=== PATIENT | female | born 1995 | race African-American/Black ===

== ENCOUNTER 2016-06-16 15:42 | Inpatient (IN) | payer BC, MEDICAID ==
[~2016-06-16] VITALS: Ht 162.6 cm; Wt 89.2 kg
[~2016-06-16 15:42] MED LIST: /GLIM4TA PO; /ONDA4TA PO; ABIL10TA PO; DEXT5INJ2 IV; GABA300C2 PO; GLIM4TAB PO; GLUC1VL SC; GUAN1TA PO; HYDR-3363 PO; INSULANT SC; INTU2TAB PO; INTU3TAB PO; INTUNIV PO; METF-414 PO; METF-415 PO; METF1000 PO; ONDA4TAB2 PO; PROZ10CA7 PO; PROZ20CA11 PO; SEASTAB PO; TRAZ50TA2 PO; ULTR50TA PO; [UNRECOGNIZED DRUG - CODE] IV; [UNRECOGNIZED DRUG - CODE] PO
[2016-06-16] MEDS ORDERED: ZOCO40TA PO (15:59)
[2016-06-16] MEDS ORDERED: birth control PO (15:59)
[2016-06-16] MEDS ORDERED: FARX1TAB2 PO (15:59)
[2016-06-16] MEDS ORDERED: ABIL5TAB5 PO (15:59)
[2016-06-16] MEDS ORDERED: INSUH10VL SC (15:59)
[2016-06-16] MEDS ORDERED: ATIV1TAB7 PO (15:59)
[2016-06-16 19:59] LABS: MEAN CORPUSCULAR HEMOGLOBIN 28.5 pg (27.0-33.0); MEAN CORPUSCULAR HGB CONC 31.7 g/dl (32.0-36.5); MEAN CORPUSCULAR VOLUME 90.1 fl (80.0-96.0); RED CELL DISTRIBUTION WIDTH 13.6 % (11.5-14.5); WHITE BLOOD COUNT 7.2 K/mm3 (4.0-10.0)
[2016-06-16 20:03] LABS: CONTROL LINE HCG INT CTR LINE PRESENT
[2016-06-16 20:16] LABS: ALBUMIN 3.5 GM/DL (3.2-5.2); ALBUMIN/GLOBULIN RATIO 0.88 (1.00-1.93); ALKALINE PHOSPHATASE 90 U/L (45-117); ALT/SGPT 33 U/L (12-78); ANION GAP 10 MEQ/L (8-16); AST/SGOT 26 U/L (15-37); BILIRUBIN,DIRECT 0.1 MG/DL (0.0-0.2); BILIRUBIN,TOTAL 0.3 MG/DL (0.2-1.0); BLOOD UREA NITROGEN 10 MG/DL (7-18); CALCIUM LEVEL 9.1 MG/DL (8.5-10.1); CARBON DIOXIDE LEVEL 26 MEQ/L (21-32); CHLORIDE LEVEL 106 MEQ/L (98-107); CREATININE FOR GFR 0.75 MG/DL (0.55-1.02); GLOMERULAR FILTRATION RATE > 60.0 (>60); GLUCOSE, FASTING 151 MG/DL (70-105); POTASSIUM SERUM 3.9 MEQ/L (3.5-5.1); SODIUM LEVEL 142 MEQ/L (136-145); TOTAL PROTEIN 7.5 GM/DL (6.4-8.2)
[2016-06-16] MEDS ORDERED: FLUO10CA8 PO (21:38)
[2016-06-16] MEDS ORDERED: INTRTAB PO (21:41)
[2016-06-16] MEDS ORDERED: METF1000 PO (21:41)
[2016-06-16] MEDS ORDERED: INSULANT SC (21:41)
[2016-06-16] MEDS ORDERED: GUAN1TAB18 PO (21:43)
[2016-06-16] MEDS ORDERED: TRUL10IN SC (21:43)
[2016-06-16] MEDS ORDERED: MOM 30ML SUSPENSION UDC PO PRN (22:15)
[2016-06-16] MEDS ORDERED: GLUCAGON FOR INJ 1 MG VIAL (J1610) SC PRN (22:15)
[2016-06-16] MEDS ORDERED: MAALOX 30 ML SUSP *UDC PO PRN (22:15)
[2016-06-16] MEDS ORDERED: DEXTROSE 50% 50 ML SYRINGE IV PRN (22:15)
[2016-06-16] MEDS ORDERED: GLUCOSE 4 GM CHEW TABLET PO PRN (22:15)
[2016-06-16] MEDS ORDERED: ACETAMINOPHEN TAB 650MG DOSE (2X325MG) PO PRN (22:15)
[2016-06-16] MEDS ORDERED: LEVEMIR (INSULIN DETEMIR) 1 UNITS/0.01ML SC ONE (23:30)
[2016-06-17] MEDS: LORazepam 1 MG TAB PO PRN ×3 (01:41→22:28)
[2016-06-17] MEDS: HumaLOG INSULIN (NovoLOG) PER UNIT SC SCH ×4 (06:40→21:00)
[2016-06-17] MEDS: metFORMIN (GLUCOPHAGE) 1000 MG TABLET PO SCH ×2 (08:11→17:21)
[2016-06-17] MEDS ORDERED: COLA100C PO (09:17)
--- NOTE | 2016-06-17 11:31 | HPEPDOC ---
Medical History and Physical Date of Admission Jun 16, 2016 at 20:35 History and Physical PCP: Terence BETH ATTENDING: Dr. David Serna HPI: 20yoF admitted to [facility] for SI, being medically examined today. No acute medical complaints today. Denies any fevers, chills, weakness, fatigue, BRADLEY, CP, SOB, cough, palpitations, abdominal pain, N/V/D or changes in bowel or bladder habits. PMHx: Bipolar disorder Schizophrenia Depression ADHD Hyperlipidemia IDDM Vitamin D deficiency Developmental delay-resident of [facility] PSHX: Tonsillectomy/adenoidectomy Tympanostomy tubes [place] teeth extraction SOCHX: Resides in: [facility] residence. Marital Status: Single Kids: None Employment: Unemployed Tobacco use: Denies ETOH: Denies Illicit Drugs: Denies IV Drug Use: Denies Tattoos done unprofessionally: Denies FAMHX: Patient is adopted and is unaware of family history ROS: As noted in HPI, otherwise 11pt ROS of systems reviewed and remarkable only for LMP unknown. PE: GEN: 20yoF, appears stated age. Well-nourished, well developed. No acute distress. Alert and oriented x 3. Pleasant, interactive. HEENT: Normocephalic, atraumatic. Pupils are equal, round, and reactive to light. Extraocular movements are intact. No nystagmus appreciated. Sclera are nonicteric. Conjunctiva without injection. Nose midline. Nasal turbinates without bogginess. EACs both patent BL. TMs both visualized and madrigal with good cone of light, no bulging or erythema. No facial asymmetry. Moist mucous membranes. Dentition fair. Pharynx pink and moist, no cobblestoning. Neck supple , trachea midline. No lymphadenopathy or thyromegaly appreciated. CHEST: Regular rate and rhythm, +S1, +S2 LUNGS: Clear to auscultation bilaterally. No wheezes, rales, or rhonchi. Breathing appears symmetric and easy. Patient is speaking in full sentences. No accessory muscle use. ABD: Round, soft, non-tender, non-distended. +Bowel sounds throughout. No rebound or guarding. No costovertebral angle tenderness. EXT: Pulses 2+ bilaterally dorsalis pedis and radial. No lower extremity edema appreciated. SKIN: [place], dry, warm. Capillary refill <2sec. No rashes. NEURO: Alert and oriented x 3. Cranial nerves III-XII are intact. No focal deficits appreciated. EKG: pending. A&P: 20yoF admitted to [facility] for SI 1. Psych. Plan per Psychiatry.Obtain baseline EKG to assure the safety of psychiatric medications as they can prolong the QT interval. 2. IDDM. CC diet, SSI. Levemir 33 units daily at bedtime. Metformin 1000 mg by mouth twice a day. Patient follows as outpatient with [facility]. 3. Hyperlipidemia. Continue with Zocor 40 mg daily. 4. Follow up with PCP on discharge. 5. Patient remains on OCP. 6. Staff member present throughout exam, ALONDRA Peterson. Vital Signs Vital Signs Label Value Date Time Patient Temperature 97.4 degrees F 06/17/1634 Temperature Source Tympanic 06/17/1634 Pulse 103 06/17/1634 Respiratory Rate 16 bpm 06/17/1634 Blood Pressure Assessment 131/63 (85) 06/17/1634 Location Right Arm Source Automatic Cuff (NIBP) Position Supine Bedside Pulse Oximetry 97 % 06/17/1634 Item Value Date Time Oxygen Delivery Method Room Air 06/17/1634 Laboratory Data Labs 24H Laboratory Tests 2 06/16/16 16:53: Acetaminophen Level < 2.0L, Aspartate Amino Transf (AST/SGOT) 26, Alanine Aminotransferase (ALT/SGPT) 33, Alkaline Phosphatase 90, Total Bilirubin 0.3, Direct Bilirubin 0.1, Albumin 3.5, Albumin/Globulin Ratio 0.88L, Anion Gap 10, Calcium Level 9.1, Ethyl Alcohol Level 0.006, Glomerular Filtration Rate > 60.0 , Human Chorionic Gonadotropin, Qual NEGATIVE, Salicylates Level < 1.7L, Thyroid Stimulating Hormone (TSH) 0.710, Total Protein 7.5 06/17/16 06:39: Bedside Glucose (Misc Panel) 113H CBC/BMP Laboratory Tests 06/16/16 16:53 Red Blood Count 4.99, Mean Corpuscular Volume 90.1, Mean Corpuscular Hemoglobin 28.5, Mean Corpuscular Hemoglobin Concent 31.7 L, Red Cell Distribution Width 13.6 Home Medications Scheduled (Introvale 0.15-0.03 mg) 1 Tab Tab 1 TAB PO DAILY PATIENT STATES SHE IS ON [place] TABLETS RIGHT NOW (Guanfacine ER) 3 Mg Tab 3 MG PO QHS (Trulicity) 0.75 Mg/0.5 Ml Inj 0.75 MG SC 1XWK MONDAY Aripiprazole (Abilify) 5 Mg Tab 6 MG PO DAILY Docusate Sodium (Colace) 100 Mg Cap 100 MG PO BID CONSTIPATION Fluoxetine Hcl (Fluoxetine) 10 Mg Cap 30 MG PO QHS Insulin Aspart (Novolog) 100 U/Ml Inj 1 DOSE SC ACHS PER SLIDING SCALE Insulin Glargine (Lantus) 1 Units/0.01 Ml Susp 33 UNITS SC QHS Metformin Hydrochloride (Metformin HCl) 1,000 Mg Tab 1,000 MG PO BID Simvastatin - High Dose (Zocor) 40 Mg Tab 40 MG PO QHS Scheduled PRN Lorazepam (Ativan) 1 Mg Tab 1 MG PO Q6H PRN PRN AGITATION Allergies Coded Allergies: Topiramate (Verified Allergy, Severe, hallucinations, 06/16/16) Milk-related Compounds (Verified Allergy, Unknown, 07/16/12) Jessica Nash Jun 17, 2016 11:31
[2016-06-17 18:00] VITALS: BP 141/98
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
--- NOTE | 2016-06-17 20:34 | ECGEPIP ---
Stationary ECG Study [facility] Test Date: 2016-06-17 Pat Name: JAYME NÚÑEZ Department: Room: [place] [address] Gender: F Ribbon Winder: : 1995 Requested By: Jessica Nash Order Number: [id number] Reading MD: David Serna Measurements Intervals [place] Rate: 93 P: 43 PA: 149 QRS: 45 QRSD: 86 T: 32 QT: 358 QTc: 446 Interpretive Statements SINUS RHYTHM Nonspecific T wave abnormality No significant change when compared to prior tracing of 11-16-12 Electronically Signed On 06-17-2016 20:34:34 EST by David Serna
[2016-06-17] MEDS ORDERED: guanFACINE 1 MG TAB PO SCH (21:00)
[2016-06-17] MEDS ORDERED: ARIPiprazole 2 MG TAB PO SCH (21:00)
[2016-06-17] MEDS: FLUoxetine 10 MG CAP PO SCH (22:27)
[2016-06-17] MEDS: SIMVASTATIN 40 MG TAB PO SCH (22:28)
[2016-06-17] MEDS: guanFACINE 1 MG TAB PO SCH (22:29)
[2016-06-17] MEDS: LEVEMIR (INSULIN DETEMIR) 1 UNITS/0.01ML SC SCH (22:35)
[2016-06-18] MEDS: HumaLOG INSULIN (NovoLOG) PER UNIT SC SCH ×4 (06:41→21:00)
[2016-06-18 06:49] VITALS: BP 118/66
[2016-06-18] MEDS: metFORMIN (GLUCOPHAGE) 1000 MG TABLET PO SCH ×2 (08:00→17:26)
[2016-06-18] MEDS: guanFACINE 1 MG TAB PO SCH ×2 (09:12→20:41)
[2016-06-18] MEDS: INTROVALE PO SCH (17:26)
[2016-06-18 18:00] VITALS: BP 148/79
[2016-06-18] MEDS: SIMVASTATIN 40 MG TAB PO SCH (20:38)
[2016-06-18] MEDS: FLUoxetine 10 MG CAP PO SCH (20:39)
[2016-06-18] MEDS: LORazepam 1 MG TAB PO PRN (20:41)
[2016-06-18] MEDS: LEVEMIR (INSULIN DETEMIR) 1 UNITS/0.01ML SC SCH (21:32)
[2016-06-19 06:00] VITALS: BP 131/88
[2016-06-19] MEDS: HumaLOG INSULIN (NovoLOG) PER UNIT SC SCH ×4 (06:47→20:26)
[2016-06-19] MEDS ORDERED: ENTER DRUG NAME HERE (PATIENT'S OWN MED) PO SCH (09:00)
--- NOTE | 2016-06-19 09:23 | IPN ---
DATE: 06/18/2016 SUBJECTIVE: "When can I go home." OBJECTIVE: Patient is improving. Patient is interacting better with peers and staff. At times she displays attention seeking behavior. Denies side effects from medications. No evidence of auditory or visual hallucinations or delusions. MENTAL STATUS EXAMINATION: Patient is dressed in [facility]. Patient is cooperative during the exam. Speech is normal in rate, volume, articulation, is coherent and spontaneous. Mood is slightly depressed. Affect is congruent with mood. No evidence of delusions or hallucinations. Memory, attention and concentration is fair in the context of her developmental disability. The patient contracts for safety. Denies suicidal or homicidal ideation. Insight and judgment is limited. ASSESSMENT: 1. Developmental disability. 2. Suicidal ideation. PLAN: 1. Continue with Prozac 30 mg by mouth every morning. 2. Continue with Abilify 7.5 mg by mouth at bedtime. 3. Continue with Tenex 1.5 mg by mouth twice a day. 4. Continue close observation. 5. Continue medication management, individual and group therapy.
[2016-06-19] MEDS: INTROVALE PO SCH (09:26)
[2016-06-19] MEDS: guanFACINE 1 MG TAB PO SCH ×2 (09:26→20:26)
[2016-06-19] MEDS: metFORMIN (GLUCOPHAGE) 1000 MG TABLET PO SCH ×2 (09:27→17:05)
[2016-06-19 18:00] VITALS: BP 148/83
[2016-06-19] MEDS: SIMVASTATIN 40 MG TAB PO SCH (20:24)
[2016-06-19] MEDS: FLUoxetine 10 MG CAP PO SCH (20:24)
[2016-06-19] MEDS: traZODone 50 MG TAB PO PRN (20:27)
[2016-06-19] MEDS: LEVEMIR (INSULIN DETEMIR) 1 UNITS/0.01ML SC SCH (20:29)
[2016-06-20 06:27] VITALS: BP 120/61
[2016-06-20] MEDS: HumaLOG INSULIN (NovoLOG) PER UNIT SC SCH ×4 (07:13→20:15)
[2016-06-20] MEDS: metFORMIN (GLUCOPHAGE) 1000 MG TABLET PO SCH ×2 (07:13→17:01)
[2016-06-20] MEDS: guanFACINE 1 MG TAB PO SCH ×2 (08:13→20:13)
[2016-06-20] MEDS: INTROVALE PO SCH (08:14)
--- NOTE | 2016-06-20 11:20 | IPNPDOC ---
Subjective Date Seen The patient was seen on 06/20/16. Subjective Chief Complaint/HPI The patient is a 20-year-old female admitted with a reason for visit of Suicidal Ideation. Events since last encounter Requested to evaluate for left ear pain. Patient states pressure in the left ear. Patient states started 2 days ago. Denies any associated sore throat, fever, chills, rhinorrhea, cough, chest congestion. Has had some mild postnasal drip. Patient states history of allergic rhinitis. ENT: Reports: Ear Pain (left) Cardiovascular: Denies: Chest Pain, Lt Headedness, Orthopnea, Palpitations, Paroxysmal Noc. Dyspnea Gastrointestinal: Denies: Abdominal Pain, Constipation, Diarrhea, Nausea, Vomiting Genitourinary: Denies: Dysuria, Frequency, Incontinence, Retention Objective Physical Examination General Exam: Positive: Alert Eye Exam: Positive: PERRLA ENT Exam: Positive: Atraumatic, Ext Auditory Canal Nml, Mucous membr. moist/ pink, Nares Patent, Pharynx Normal, Pinna Normal, Tympanic Membranes Normal Neck Exam: Positive: Supple, Negative: JVD, thyromegaly Chest Exam: Positive: Clear to auscultation, Normal air movement Heart Exam: Positive: Normal S1, Normal S2, Rate Normal, Regular Rhythm, Negative: Murmurs, Rubs Abdomen Exam: Positive: Normal bowel sounds, Soft, Negative: Hepatospenomegaly, Tenderness Skin Exam: Positive: Nl turgor and temperature Neuro Exam: Positive: Normal Gait Assessment /Plan Problems (1) Allergic rhinitis Status: Chronic Problem Text: * Trial of Flonase 2 sprays each nostril daily. Plan/VTE VTE Prophylaxis Ordered?: No (ambulatory. ) [facility] Sign[facility]/I&O Vital Signs Date Time Temp Pulse Resp B/P Pulse Ox O2 Delivery O2 Flow Rate FiO2 06/20/16 08:13 135/85 06/20/16 06:27 96.2 86 18 06/17/16 00:35 97 Room Air Laboratory Data 24H LABS Laboratory Tests 2 06/19/16 12:04: Bedside Glucose (Misc Panel) 350H 06/19/16 20:25: Bedside Glucose (Misc Panel) 185H 06/20/16 07:11: Bedside Glucose (Misc Panel) 199H Jessica Nash Jun 20, 2016 11:19
[2016-06-20] MEDS: FLUTICASONE PROP 0.05% NASAL SPRAY 16 GM (FLONASE) SCH (12:18)
[2016-06-20] MEDS: hydrOXYzine 50 MG TAB PO PRN (17:24)
[2016-06-20 18:00] VITALS: BP 124/80
[2016-06-20] MEDS: FLUoxetine 10 MG CAP PO SCH (20:12)
[2016-06-20] MEDS: SIMVASTATIN 40 MG TAB PO SCH (20:13)
[2016-06-20] MEDS: LORazepam 1 MG TAB PO PRN (20:13)
[2016-06-20] MEDS: LEVEMIR (INSULIN DETEMIR) 1 UNITS/0.01ML SC SCH (20:16)
--- NOTE | 2016-06-20 23:51 | IPN ---
DATE: 06/19/2016 SUBJECTIVE: "I'm feeling much better." OBJECTIVE: The patient is significantly improved from admission. The patient is interacting very well with other patients and staff. No signs or symptoms of agitation or behavioral disturbance. Her mood is euthymic. The patient is able to joke with other patients and smiles appropriately. The patient denies any side effect from the medication and is sleeping well with help of the treatment. MENTAL STATUS EXAMINATION: The patient is dressed in casual clothes. The patient is calm and cooperative, has good eye contact. Speech is normal in rate, volume, articulation, is coherent and is spontaneous. Mood is euthymic. Affect is congruent with mood. No delusions or hallucinations. Memory is fair. The patient is fully oriented. The patient is denying suicidal or homicidal ideation. Insight and judgment is fair. ASSESSMENT: 1. Developmental disability. 2. Suicidal ideation. PLAN: 1. Continue Prozac 30 mg by mouth every morning. 2. Continue Abilify 7.5 mg by mouth nightly. 3. Continue Tenex 1.5 mg by mouth twice a day. 4. Continue medication management, individual and group therapy.
[2016-06-21] MEDS: HumaLOG INSULIN (NovoLOG) PER UNIT SC SCH ×5 (06:30→20:36)
[2016-06-21 06:32] VITALS: BP 133/85
[2016-06-21] MEDS: FLUTICASONE PROP 0.05% NASAL SPRAY 16 GM (FLONASE) SCH (08:01)
[2016-06-21] MEDS: metFORMIN (GLUCOPHAGE) 1000 MG TABLET PO SCH ×2 (08:01→18:03)
[2016-06-21] MEDS: INTROVALE PO SCH (08:01)
[2016-06-21] MEDS: guanFACINE 1 MG TAB PO SCH ×2 (08:01→20:34)
[2016-06-21] MEDS ORDERED: FLUTISP (08:29)
--- NOTE | 2016-06-21 12:07 | DS.PDOC ---
[facility] Discharge Summary Discharge Summary Entry made in error Vital Signs Vital Sign - Last 24 Hours 06/20/16 06/20/16 06/21/16 06/21/16 18:00 20:13 06:32 08:01 Temp 96.7 96.0 Pulse 86 103 Resp 16 16 B/P 124/80 138/86 133/85 133/85 Laboratory Data Labs 24H Laboratory Tests 2 06/20/16 16:50: Bedside Glucose (Misc Panel) 278H 06/20/16 20:07: Bedside Glucose (Misc Panel) 159H 06/21/16 06:24: Bedside Glucose (Misc Panel) 182H FSBS Laboratory Tests Test 06/20/16 16:50 06/20/16 20:07 06/21/16 06:24 Range/Units Bedside Glucose (Misc Panel) 278 159 182 70-105 MG/DL Medications Scheduled (Introvale 0.15-0.03 mg) 1 Tab Tab 1 TAB PO DAILY (Reported) PATIENT STATES SHE IS ON [place] TABLETS RIGHT NOW (Guanfacine ER) 3 Mg Tab 3 MG PO QHS (Reported) (Trulicity) 0.75 Mg/0.5 Ml Inj 0.75 MG SC 1XWK (Reported) MONDAY Aripiprazole (Abilify) 5 Mg Tab 6 MG PO DAILY (Reported) Docusate Sodium (Colace) 100 Mg Cap 100 MG PO BID CONSTIPATION (Reported) Fluoxetine Hcl (Fluoxetine) 10 Mg Cap 30 MG PO QHS (Reported) Fluticasone Propionate (Fluticasone Propionate) 50 Mcg/Act Spr #1 2 SPRAY NA DAILY allergy Insulin Aspart (Novolog) 100 U/Ml Inj 1 DOSE SC ACHS (Reported) PER SLIDING SCALE Insulin Glargine (Lantus) 1 Units/0.01 Ml Susp 33 UNITS SC QHS (Reported) Metformin Hydrochloride (Metformin HCl) 1,000 Mg Tab 1,000 MG PO BID (Reported ) Simvastatin - High Dose (Zocor) 40 Mg Tab 40 MG PO QHS (Reported) Scheduled PRN Lorazepam (Ativan) 1 Mg Tab 1 MG PO Q6H PRN PRN AGITATION (Reported) Allergies Coded Allergies: Topiramate (Verified Allergy, Severe, hallucinations, 06/16/16) Milk-related Compounds (Verified Allergy, Unknown, 07/16/12) Jyoti Park Jun 21, 2016 12:06 Laboratory Data Labs 24H Laboratory Tests 2 06/20/16 16:50: Bedside Glucose (Misc Panel) 278H 06/20/16 20:07: Bedside Glucose (Misc Panel) 159H 06/21/16 06:24: Bedside Glucose (Misc Panel) 182H FSBS Laboratory Tests Test 06/20/16 16:50 06/20/16 20:07 06/21/16 06:24 Range/Units Bedside Glucose (Misc Panel) 278 159 182 70-105 MG/DL Medications Scheduled (Introvale 0.15-0.03 mg) 1 Tab Tab 1 TAB PO DAILY (Reported) PATIENT STATES SHE IS ON [place] TABLETS RIGHT NOW (Guanfacine ER) 3 Mg Tab 3 MG PO QHS (Reported) (Trulicity) 0.75 Mg/0.5 Ml Inj 0.75 MG SC 1XWK (Reported) MONDAY Aripiprazole (Abilify) 5 Mg Tab 6 MG PO DAILY (Reported) Docusate Sodium (Colace) 100 Mg Cap 100 MG PO BID CONSTIPATION (Reported) Fluoxetine Hcl (Fluoxetine) 10 Mg Cap 30 MG PO QHS (Reported) Fluticasone Propionate (Fluticasone Propionate) 50 Mcg/Act Spr #1 2 SPRAY NA DAILY allergy Insulin Aspart (Novolog) 100 U/Ml Inj 1 DOSE SC ACHS (Reported) PER SLIDING SCALE Insulin Glargine (Lantus) 1 Units/0.01 Ml Susp 33 UNITS SC QHS (Reported) Metformin Hydrochloride (Metformin HCl) 1,000 Mg Tab 1,000 MG PO BID (Reported ) Simvastatin - High Dose (Zocor) 40 Mg Tab 40 MG PO QHS (Reported) Scheduled PRN Lorazepam (Ativan) 1 Mg Tab 1 MG PO Q6H PRN PRN AGITATION (Reported) Allergies Coded Allergies: Topiramate (Verified Allergy, Severe, hallucinations, 06/16/16) Milk-related Compounds (Verified Allergy, Unknown, 07/16/12) Jyoti Park Jun 21, 2016 12:06
[2016-06-21] MEDS: LORazepam 1 MG TAB PO PRN (12:50)
--- NOTE | 2016-06-21 17:23 | IPNPDOC ---
[facility] Progress Note Progress Note DATE OF SERVICE: 06/21/16 HISTORY: Aircraft Engine Assembler met with patient today to assess treatment progress on the inpatient unit. Patient continues to improve from admission and has been visible on unit and attending groups. The patient is well with other patients and staff, no indication of agitation or loss of behavioral control over the weekend. Patient denies challenges with energy level, sleep or appetite, indicates medication regimen is working well to control symptoms of anxiety, depression, agitation, and concentration and focus challenges. Patient informs mortgage or loan underwriter today that she is planning to discharge back to residential facility, mortgage or loan underwriter informs patient that her discharge is not scheduled for today but that meeting with [facility] is to take place this morning to begin making plans for patient to return to facility. Patient verbalizes understanding but continues to push for discharge today. VITALS: See below CURRENT MEDICATIONS: See below MENTAL STATUS EXAMINATION: The patient is dressed in casual clothes. The patient is calm and cooperative at time of assessment, has fair eye contact. Speech is normal in rate, volume, articulation, is coherent and is spontaneous. Mood is anxious. Affect is congruent with mood. No delusions or hallucinations. Memory is fair. The patient is fully oriented. The patient is denying suicidal or homicidal ideation. Insight and judgment are limited. DIAGNOSES: Impulse control disorder, rule out bipolar disorder, rule out MDD, developmentally disabled, ADHD ASSESSMENT: Patient has been visible on unit and attending groups. Patient is superficially compliant, denies all symptoms today, indicates she feels prepared for discharge back to [facility] and is aware he has meeting with [facility] this morning. Patient indicates recent dosing adjustment to Abilify is helpful, states current medication regimen is working well and denies medication side effects. Patient is minimizing symptoms, informs mortgage or loan underwriter that she has no anxiety or depression though continues to make telephone calls multiple times per day to request to speak with the boiler house mechanic, becomes demanding during meeting with this mortgage or loan underwriter, insisting that she be discharged back to her residential facility today. Aircraft Engine Assembler will continue to monitor patient's response to medications, monitor for medication side effects, evaluate resolution of suicidal and homicidal ideation, and discharge readiness. Addendum: Patient became agitated after meeting with [facility] wherein behavioral expectations were outlined to patient. Patient demanding to be discharged today , eventually able to calm down and regain composure, required medication with when necessary anxiolytic. [facility] indicated they do not feel patient is ready for return to residential facility. Aircraft Engine Assembler again met with patient and patient is agreeable to dosing adjustment to Abilify in effort to further reduce symptoms of agitation, low frustration tolerance, anxiety. Will reevaluate discharge in 2 -3 days, patient is in agreement with new projected discharge timeframe, is also in agreement that she will place no more than one telephone call in the morning and 1 telephone call in the evening to staff at her residential facility. MANAGEMENT PLAN: Increase Abilify to 10 mg po q hs, continue Prozac 30 mg po q am, and Tenex 1.5 mg po BID Maintain safety precautions Patient to attend groups and participate in unit programming to develop coping strategies Engage patient in discharge planning process and arrange follow-up meeting with [facility] later in week to reevaluate discharge planning discharge planning when appropriate Patient to follow up with PCM upon discharge TIME SPENT: 35 minutes Vital Signs Vital Signs Date Time Temp Pulse Resp B/P Pulse Ox O2 Delivery O2 Flow Rate FiO2 06/21/16 08:01 133/85 06/21/16 06:32 96.0 103 16 06/17/16 00:35 97 Room Air Laboratory Data 24H Labs Laboratory Tests 2 06/20/16 20:07: Bedside Glucose (Misc Panel) 159H 06/21/16 06:24: Bedside Glucose (Misc Panel) 182H 06/21/16 12:03: Bedside Glucose (Misc Panel) 326H Current Medications Current Medications Acetaminophen (Tylenol Tab) 650 mg Q6HP PRN PO HEADACHE or DISCOMFORT; Start at 22:15; Stop 07/16/16 at 22:14 Al Hydrox/Mg Hydrox/Simethicone (Mylanta) 30 ml Q4HP PRN PO HEARTBURN/ INDIGESTION; Start 06/16/16 at 22:15; Stop 07/16/16 at 22:14 Aripiprazole (AbiLIFY) 1 mg QHS PO ; Start 06/17/16 at 21:00; Stop 06/17/16 at 21: 00; Status DC Aripiprazole (AbiLIFY) 5 mg QHS PO ; Start 06/17/16 at 21:00; Stop 06/17/16 at 21: 00; Status DC Aripiprazole (AbiLIFY) 7.5 mg QHS PO Last administered on 06/20/16 20:13; Start 06/17/16 at 21:00; Stop 07/17/16 at 20:59 Dextrose (Dextrose 50%) 25 ml ASDIRECTED PRN IV SEE LABEL COMMENTS; Start at 22:15; Stop 07/16/16 at 22:14 Fluoxetine HCl (PROzac) 30 mg QHS PO Last administered on 06/20/16 20:12; Start 06/17/16 at 21:00; Stop 07/17/16 at 20:59 Fluticasone Propionate (Flonase 0.05% Nasal [place]) 2 spray DAILY NA Last administered on 06/21/16 08:01; Start 06/20/16 at 09:00; Stop 07/20/16 at 08:59 Glucagon (Glucagon) 1 mg ASDIRECTED PRN SC SEE LABEL COMMENTS; Start 06/16/16 at 22:15; Stop 07/16/16 at 22:14 Glucose (Glucose) 16 GM ASDIRECTED PRN PO SEE LABEL COMMENTS; Start 06/16/16 at 22:15; Stop 07/16/16 at 22:14 Guanfacine HCl (Tenex) 1.5 mg BID PO Last administered on 06/21/16 08:01; Start 06/17/16 at 21:00; Stop 07/17/16 at 20:59 Guanfacine HCl (Tenex) 3 mg QHS PO ; Start 06/17/16 at 21:00; Stop 06/17/16 at 21: 00; Status DC Home Med (Med Rec Complete!) ASDIRECTED XX ; Start 06/16/16 at 21:45; Stop at 21:50; Status DC Hydroxyzine HCl (Atarax) 50 mg Q6HP PRN PO ANXIETY Last administered on 17:24; Start 06/17/16 at 18:00; Stop 07/17/16 at 17:59 Insulin Detemir (Levemir Insulin) 33 units QHS SC Last administered on 20:16; Start 06/17/16 at 21:00; Stop 07/17/16 at 20:59 Insulin Human Lispro (HumaLOG INSULIN) See Protocol Table AC SC Last administered on 06/21/16 14:07; Start 06/17/16 at 07:30; Stop 07/17/16 at 07:29 Insulin Human Lispro (HumaLOG INSULIN) See Protocol Table QHS SC ; Start at 21:00; Stop 07/17/16 at 20:59 Lorazepam (Ativan) 1 mg Q6HP PRN PO AGITATION Last administered on 06/21/16 12: 50; Start 06/16/16 at 22:15; Stop 06/23/16 at 22:14 Magnesium Hydroxide (Milk Of Magnesia) 30 ml DAILYPRN PRN PO CONSTIPATION; Start 06/16/16 at 22:15; Stop 07/16/16 at 22:14 Metformin HCl (Glucophage) 1,000 mg BID@ PO Last administered on 06/21/16 08:01; Start 06/17/16 at 08:00; Stop 07/17/16 at 07:59 Miscellaneous (Unresolved Patient Own Med Order) SEE LABEL COMMENTS UNRESOLVED XX ; Start 06/17/16 at 00:01; Stop 06/18/16 at 16:27; Status DC Patient Own Medication (Patient'S Own Med) 1 ea DAILY PO Last administered on 08:01; Start 06/18/16 at 09:00; Stop 07/18/16 at 08:59 Patient Own Medication (Patient'S Own Med) 1 ea DAILY PO ; Start 06/19/16 at 09: 00; Stop 06/19/16 at 09:00; Status DC Simvastatin (Zocor) 40 mg QHS PO Last administered on 06/20/16 20:13; Start 06/17/16 at 21:00; Stop 07/17/16 at 20:59 Trazodone HCl (Desyrel) 50 mg QHSP PRN PO INSOMNIA Last administered on 20:27; Start 06/16/16 at 22:15; Stop 07/16/16 at 22:14 Allergies Coded Allergies: Topiramate (Verified Allergy, Severe, hallucinations, 06/16/16) Milk-related Compounds (Verified Allergy, Unknown, 07/16/12) Jyoti Park Jun 21, 2016 17:23 Glucagon (Glucagon) 1 mg ASDIRECTED PRN SC SEE LABEL COMMENTS; Start 06/16/16 at 22:15; Stop 07/16/16 at 22:14 Glucose (Glucose) 16 GM ASDIRECTED PRN PO SEE LABEL COMMENTS; Start 06/16/16 at 22:15; Stop 07/16/16 at 22:14 Guanfacine HCl (Tenex) 1.5 mg BID PO Last administered on 06/21/16 08:01; Start 06/17/16 at 21:00; Stop 07/17/16 at 20:59 Guanfacine HCl (Tenex) 3 mg QHS PO ; Start 06/17/16 at 21:00; Stop 06/17/16 at 21: 00; Status DC Home Med (Med Rec Complete!) ASDIRECTED XX ; Start 06/16/16 at 21:45; Stop at 21:50; Status DC Hydroxyzine HCl (Atarax) 50 mg Q6HP PRN PO ANXIETY Last administered on 17:24; Start 06/17/16 at 18:00; Stop 07/17/16 at 17:59 Insulin Detemir (Levemir Insulin) 33 units QHS SC Last administered on 20:16; Start 06/17/16 at 21:00; Stop 07/17/16 at 20:59 Insulin Human Lispro (HumaLOG INSULIN) See Protocol Table AC SC Last administered on 06/21/16 14:07; Start 06/17/16 at 07:30; Stop 07/17/16 at 07:29 Insulin Human Lispro (HumaLOG INSULIN) See Protocol Table QHS SC ; Start at 21:00; Stop 07/17/16 at 20:59 Lorazepam (Ativan) 1 mg Q6HP PRN PO AGITATION Last administered on 06/21/16 12: 50; Start 06/16/16 at 22:15; Stop 06/23/16 at 22:14 Magnesium Hydroxide (Milk Of Magnesia) 30 ml DAILYPRN PRN PO CONSTIPATION; Start 06/16/16 at 22:15; Stop 07/16/16 at 22:14 Metformin HCl (Glucophage) 1,000 mg BID@ PO Last administered on 06/21/16 08:01; Start 06/17/16 at 08:00; Stop 07/17/16 at 07:59 Miscellaneous (Unresolved Patient Own Med Order) SEE LABEL COMMENTS UNRESOLVED XX ; Start 06/17/16 at 00:01; Stop 06/18/16 at 16:27; Status DC Patient Own Medication (Patient'S Own Med) 1 ea DAILY PO Last administered on 08:01; Start 06/18/16 at 09:00; Stop 07/18/16 at 08:59 Patient Own Medication (Patient'S Own Med) 1 ea DAILY PO ; Start 06/19/16 at 09: 00; Stop 06/19/16 at 09:00; Status DC Simvastatin (Zocor) 40 mg QHS PO Last administered on 06/20/16 20:13; Start 06/17/16 at 21:00; Stop 07/17/16 at 20:59 Trazodone HCl (Desyrel) 50 mg QHSP PRN PO INSOMNIA Last administered on 20:27; Start 06/16/16 at 22:15; Stop 07/16/16 at 22:14 Allergies Coded Allergies: Topiramate (Verified Allergy, Severe, hallucinations, 06/16/16) Milk-related Compounds (Verified Allergy, Unknown, 07/16/12) Jyoti Park Jun 21, 2016 17:23
[2016-06-21] MEDS: FLUoxetine 10 MG CAP PO SCH (20:33)
[2016-06-21] MEDS: traZODone 50 MG TAB PO PRN (20:34)
[2016-06-21] MEDS: SIMVASTATIN 40 MG TAB PO SCH (20:34)
[2016-06-21] MEDS: LEVEMIR (INSULIN DETEMIR) 1 UNITS/0.01ML SC SCH (20:37)
[2016-06-21 22:25] VITALS: BP 117/72
[2016-06-22 06:16] VITALS: BP 136/92
[2016-06-22] MEDS: HumaLOG INSULIN (NovoLOG) PER UNIT SC SCH ×4 (06:54→21:00)
[2016-06-22] MEDS: metFORMIN (GLUCOPHAGE) 1000 MG TABLET PO SCH ×2 (09:13→17:06)
[2016-06-22] MEDS: INTROVALE PO SCH (09:14)
[2016-06-22] MEDS: guanFACINE 1 MG TAB PO SCH ×2 (09:14→22:49)
[2016-06-22] MEDS: FLUTICASONE PROP 0.05% NASAL SPRAY 16 GM (FLONASE) SCH (09:17)
[2016-06-22] MEDS: LORazepam 1 MG TAB PO PRN ×2 (11:19→22:51)
--- NOTE | 2016-06-22 12:10 | IPNPDOC ---
[facility] Progress Note Progress Note DATE OF SERVICE: 06/22/16 HISTORY: Software Engineer Developer met with patient today to assess treatment progress on the inpatient unit. Patient continues to improve from admission and has been visible on unit and attending groups. The patient is engaging well with other patients and staff, no indication of agitation or loss of behavioral control, indicates she is adhering to the 2 telephone call role to her residential treatment facility. Patient denies challenges with energy level, sleep or appetite, indicates medication regimen is working well to control symptoms of anxiety, depression, agitation, and concentration and focus challenges. Patient denies symptoms of depression, reports 2/10 anxiety related to her desire to discharge, denies suicidal and homicidal ideation, denies audiovisual hallucinations, and denies urge to engage in self-injurious behavior. Patient is aware her discharge status is currently undetermined, she is undergoing ongoing evaluation to determine her safety and readiness to return to her [facility], discharge will be reevaluated on Monday. VITALS: See below NEW TEST RESULTS: No new results. Labs on admission indicate low MCHC, AGR and elevated glucose UDS negative on admission HCG negative on admission, patient is currently taking oral control 06/17/16 EKG SINUS RHYTHM Nonspecific T wave abnormality. No significant change when compared to prior tracing of 11-16-12 CURRENT MEDICATIONS: See below MENTAL STATUS EXAMINATION: Patient is a 20-year-old female who is pleasant, less superficially cooperative today, adequately kempt, obese, and relates with steady gait, appears stated age. Speech: Is of normal rate, rhythm, volume, coherent, somewhat spontaneous Language skills are intact but limited. Thought processes including: Clear, goal-directed. Thought content: Rational, logical, fixated on discharge Abstract reasoning: Appears limited Description of associations: Intact. Description of abnormal or psychotic thoughts: denies hallucinations, delusions , preoccupation with violence, homicidal or suicidal ideation, and obsessions, states she is adhering to the 2 telephone call. Judgment: Poor, but shows signs of improvement. Insight: Limited. Orientation to time, place and person. Recent and remote memory: Immediate, short-term and long-term memory is intact. Attention span and concentration: Limited. Language: Normal. Fund of knowledge: Intact but limited. Mood: "I feel good, I feel ready for discharge." Patient denies anxiety and depression, no mood lability noted at time of interaction Affect: Mild constriction, brightens appropriately, congruent with mood. DIAGNOSES: Impulse control disorder, rule out bipolar disorder, rule out MDD, developmentally disabled, ADHD ASSESSMENT: Patient has been visible on unit and attending groups. Patient is less superficially compliant, appears more genuine in her interactions today, indicates she feels prepared for discharge back to [facility] and is wanting to know if she will be discharged Monday. Patient is receptive to being told that her discharge date is currently undetermined, appears to be experiencing an increase in ability to tolerate frustration. Patient also indicates she is finding unit programming helpful in the development of new coping mechanisms. Patient indicates recent dosing adjustment to Abilify is helpful, states current medication regimen is working well and denies medication side effects. Patient states she is also adhering to the 2 telephone call role to her residential facility, is able to verbalize difficulty with this but states she is invested in following the rules and returning to her residential treatment facility. Patient exhibits no agitation or demanding behavior today. Will continue to monitor patient's response to medications, medication side effects, and will evaluate resolution of suicidal and homicidal ideation, and discharge readiness. Patient is aware discharge plan is to return to [facility] residential treatment facility and continuation of outpatient behavioral health services with previous provider. MANAGEMENT PLAN: Continue Abilify 10 mg po q hs, continue Prozac 30 mg po q am, and Tenex 1.5 mg po BID Maintain safety precautions Patient to attend groups and participate in unit programming to develop coping strategies Engage patient in discharge planning process and arrange follow-up meeting with [facility] later in week to reevaluate discharge planning discharge planning when appropriate Patient to follow up with PCM upon discharge TIME SPENT: 35 minutes Vital Signs Vital Signs Date Time Temp Pulse Resp B/P Pulse Ox O2 Delivery O2 Flow Rate FiO2 06/22/16 09:14 136/88 06/22/16 06:16 96.3 77 18 06/17/16 00:35 97 Room Air Laboratory Data 24H Labs Laboratory Tests 2 06/21/16 17:06: Bedside Glucose (Misc Panel) 277H 06/21/16 20:29: Bedside Glucose (Misc Panel) 207H 06/22/16 06:52: Bedside Glucose (Misc Panel) 201H 06/22/16 11:21: Bedside Glucose (Misc Panel) 340H Current Medications Current Medications Acetaminophen (Tylenol Tab) 650 mg Q6HP PRN PO HEADACHE or DISCOMFORT; Start at 22:15; Stop 07/16/16 at 22:14 Al Hydrox/Mg Hydrox/Simethicone (Mylanta) 30 ml Q4HP PRN PO HEARTBURN/ INDIGESTION; Start 06/16/16 at 22:15; Stop 07/16/16 at 22:14 Aripiprazole (AbiLIFY) 1 mg QHS PO ; Start 06/17/16 at 21:00; Stop 06/17/16 at 21: 00; Status DC Aripiprazole (AbiLIFY) 5 mg QHS PO ; Start 06/17/16 at 21:00; Stop 06/17/16 at 21: 00; Status DC Aripiprazole (AbiLIFY) 7.5 mg QHS PO Last administered on 06/20/16 20:13; Start 06/17/16 at 21:00; Stop 06/21/16 at 17:34; Status DC Aripiprazole (AbiLIFY) 10 mg QHS PO Last administered on 06/21/16 20:34; Start 06/21/16 at 21:00; Stop 07/21/16 at 20:59 Dextrose (Dextrose 50%) 25 ml ASDIRECTED PRN IV SEE LABEL COMMENTS; Start at 22:15; Stop 07/16/16 at 22:14 Fluoxetine HCl (PROzac) 30 mg QHS PO Last administered on 06/21/16 20:33; Start 06/17/16 at 21:00; Stop 07/17/16 at 20:59 Fluticasone Propionate (Flonase 0.05% Nasal [place]) 2 spray DAILY NA Last administered on 06/22/16 09:17; Start 06/20/16 at 09:00; Stop 07/20/16 at 08:59 Glucagon (Glucagon) 1 mg ASDIRECTED PRN SC SEE LABEL COMMENTS; Start 06/16/16 at 22:15; Stop 07/16/16 at 22:14 Glucose (Glucose) 16 GM ASDIRECTED PRN PO SEE LABEL COMMENTS; Start 06/16/16 at 22:15; Stop 07/16/16 at 22:14 Guanfacine HCl (Tenex) 1.5 mg BID PO Last administered on 06/22/16 09:14; Start 06/17/16 at 21:00; Stop 07/17/16 at 20:59 Guanfacine HCl (Tenex) 3 mg QHS PO ; Start 06/17/16 at 21:00; Stop 06/17/16 at 21: 00; Status DC Home Med (Med Rec Complete!) ASDIRECTED XX ; Start 06/16/16 at 21:45; Stop at 21:50; Status DC Hydroxyzine HCl (Atarax) 50 mg Q6HP PRN PO ANXIETY Last administered on 17:24; Start 06/17/16 at 18:00; Stop 07/17/16 at 17:59 Insulin Detemir (Levemir Insulin) 33 units QHS SC Last administered on 20:37; Start 06/17/16 at 21:00; Stop 07/17/16 at 20:59 Insulin Human Lispro (HumaLOG INSULIN) See Protocol Table AC SC Last administered on 06/22/16 11:24; Start 06/17/16 at 07:30; Stop 07/17/16 at 07:29 Insulin Human Lispro (HumaLOG INSULIN) See Protocol Table QHS SC ; Start at 21:00; Stop 07/17/16 at 20:59 Lorazepam (Ativan) 1 mg Q6HP PRN PO AGITATION Last administered on 06/22/16 11: 19; Start 06/16/16 at 22:15; Stop 06/29/16 at 22:14 Magnesium Hydroxide (Milk Of Magnesia) 30 ml DAILYPRN PRN PO CONSTIPATION; Start 06/16/16 at 22:15; Stop 07/16/16 at 22:14 Metformin HCl (Glucophage) 1,000 mg BID@18 PO Last administered on 06/22/16 09:13; Start 06/17/16 at 08:00; Stop 07/17/16 at 07:59 Miscellaneous (Unresolved Patient Own Med Order) SEE LABEL COMMENTS UNRESOLVED XX ; Start 06/17/16 at 00:01; Stop 06/18/16 at 16:27; Status DC Patient Own Medication (Patient'S Own Med) 1 ea DAILY PO Last administered on 09:14; Start 06/18/16 at 09:00; Stop 07/18/16 at 08:59 Patient Own Medication (Patient'S Own Med) 1 ea DAILY PO ; Start 06/19/16 at 09: 00; Stop 06/19/16 at 09:00; Status DC Simvastatin (Zocor) 40 mg QHS PO Last administered on 06/21/16 20:34; Start 06/17/16 at 21:00; Stop 07/17/16 at 20:59 Trazodone HCl (Desyrel) 50 mg QHSP PRN PO INSOMNIA Last administered on 20:34; Start 06/16/16 at 22:15; Stop 07/16/16 at 22:14 Allergies Coded Allergies: Topiramate (Verified Allergy, Severe, hallucinations, 06/16/16) Milk-related Compounds (Verified Allergy, Unknown, 07/16/12) Jyoti Park Jun 22, 2016 12:10
[2016-06-22 18:00] VITALS: BP 138/80
[2016-06-22] MEDS: FLUoxetine 10 MG CAP PO SCH (22:47)
[2016-06-22] MEDS: SIMVASTATIN 40 MG TAB PO SCH (22:48)
[2016-06-22] MEDS: hydrOXYzine 50 MG TAB PO PRN (22:51)
[2016-06-22] MEDS: LEVEMIR (INSULIN DETEMIR) 1 UNITS/0.01ML SC SCH (22:57)
[2016-06-23 06:36] VITALS: BP 145/95
[2016-06-23] MEDS: HumaLOG INSULIN (NovoLOG) PER UNIT SC SCH ×4 (06:40→20:11)
[2016-06-23] MEDS: INTROVALE PO SCH (08:50)
[2016-06-23] MEDS: metFORMIN (GLUCOPHAGE) 1000 MG TABLET PO SCH ×2 (08:50→18:10)
[2016-06-23] MEDS: FLUTICASONE PROP 0.05% NASAL SPRAY 16 GM (FLONASE) SCH (08:51)
[2016-06-23] MEDS: guanFACINE 1 MG TAB PO SCH ×2 (08:51→20:09)
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
[2016-06-23 18:00] VITALS: BP 107/57
[2016-06-23] MEDS: SIMVASTATIN 40 MG TAB PO SCH (20:06)
[2016-06-23] MEDS: FLUoxetine 10 MG CAP PO SCH (20:08)
[2016-06-23] MEDS: LEVEMIR (INSULIN DETEMIR) 1 UNITS/0.01ML SC SCH (20:12)
[2016-06-23] MEDS: traZODone 50 MG TAB PO PRN (20:14)
[2016-06-24] MEDS: metFORMIN (GLUCOPHAGE) 1000 MG TABLET PO SCH (06:45)
[2016-06-24 06:48] VITALS: BP 131/78
[2016-06-24] MEDS: HumaLOG INSULIN (NovoLOG) PER UNIT SC SCH (06:48)
[2016-06-24 08:10] VITALS: BP 132/79
[2016-06-24] MEDS: guanFACINE 1 MG TAB PO SCH (08:10)
[2016-06-24] MEDS: INTROVALE PO SCH (08:10)
[2016-06-24] MEDS: FLUTICASONE PROP 0.05% NASAL SPRAY 16 GM (FLONASE) SCH (08:10)
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
[2016-06-24] MEDS ORDERED: ARIP5TA PO (10:35)
== END 2016-06-24 11:00 | disposition home or self-care (01) | DRG 758 ==
LOC: M ED 17:30 → M ED INP 20:35 → M PSY 06-17 00:42
PROVIDERS: ADMIT Internal Medicine Addiction Medicine; ATTEND Internal Medicine Addiction Medicine
DX: F63.9 Impulse disorder, unspecified (principal); E55.9 Vitamin D deficiency, unspecified; F31.9 Bipolar disorder, unspecified; F90.9 Attention-deficit hyperactivity disorder, unspecified type; E78.5 Hyperlipidemia, unspecified; E11.9 Type 2 diabetes mellitus without complications; F41.9 Anxiety disorder, unspecified; F81.9 Developmental disorder of scholastic skills, unspecified; Z79.4 Long term (current) use of insulin; Z79.84 Long term (current) use of oral hypoglycemic drugs; Z88.8 Allergy status to other drugs, medicaments and biological substances; Z91.011 Allergy to milk products; J30.9 Allergic rhinitis, unspecified; Z79.899 Other long term (current) drug therapy

== ENCOUNTER → 2016-08-05 | Outpatient (REF) | payer BC, MEDICAID ==
[~2016-08-05] MED LIST changes: +ABIL5TAB5 PO; +ARIP5TA PO; +ATIV1TAB7 PO; +COLA100C3 PO; +FARX1TAB2 PO; +FLUO10CA8 PO; +FLUTISP; +GUAN1TAB18 PO; +INSUH10VL SC; +INTRTAB PO; +TRUL10IN SC; +ZOCO40TA PO; +birth control PO
== END ==
LOC: M LAB REF 16:11
PROVIDERS: ATTEND Physician Assistant
DX: R30.0 Dysuria (principal)

== ENCOUNTER → 2016-08-16 | Outpatient (REF) | payer BC, MEDICAID | LOC: M LAB REF 17:13 | PROVIDERS: ATTEND Nurse Practitioner Family | DX: N76.0 Acute vaginitis (principal) ==

== ENCOUNTER 2016-09-20 23:18 | Inpatient (IN) | payer BC, MEDICAID ==
[~2016-09-20] VITALS: Ht 162.6 cm; Wt 83.5 kg
[2016-09-21] MEDS ORDERED: ABIL1TAB5 PO (00:13)
[2016-09-21 02:58] LABS: MEAN CORPUSCULAR HEMOGLOBIN 29.1 pg (27.0-33.0); MEAN CORPUSCULAR HGB CONC 32.3 g/dl (32.0-36.5); MEAN CORPUSCULAR VOLUME 90.2 fl (80.0-96.0); RED CELL DISTRIBUTION WIDTH 12.5 % (11.5-14.5); WHITE BLOOD COUNT 8.1 K/mm3 (4.0-10.0)
[2016-09-21 03:26] LABS: METHADONE URINE NEGATIVE (NEGATIVE)
[2016-09-21 03:35] LABS: ALBUMIN 3.1 GM/DL (3.2-5.2); ALBUMIN/GLOBULIN RATIO 0.86 (1.00-1.93); ALKALINE PHOSPHATASE 90 U/L (45-117); ALT/SGPT 35 U/L (12-78); ANION GAP 7 MEQ/L (8-16); AST/SGOT 15 U/L (15-37); BILIRUBIN,DIRECT 0.1 MG/DL (0.0-0.2); BILIRUBIN,TOTAL 0.3 MG/DL (0.2-1.0); BLOOD UREA NITROGEN 8 MG/DL (7-18); CALCIUM LEVEL 9.1 MG/DL (8.5-10.1); CARBON DIOXIDE LEVEL 28 MEQ/L (21-32); CHLORIDE LEVEL 106 MEQ/L (98-107); CREATININE FOR GFR 0.69 MG/DL (0.55-1.02); GLOMERULAR FILTRATION RATE > 60.0 (>60); GLUCOSE, FASTING 163 MG/DL (70-105); POTASSIUM SERUM 4.3 MEQ/L (3.5-5.1); SODIUM LEVEL 141 MEQ/L (136-145); TOTAL PROTEIN 6.7 GM/DL (6.4-8.2)
[2016-09-21] MEDS ORDERED: TRUL0.5I SC (04:28)
[2016-09-21] MEDS ORDERED: GUAN1TAB18 PO (04:28)
[2016-09-21] MEDS ORDERED: GLUCOSE 4 GM CHEW TABLET PO PRN (04:45)
[2016-09-21] MEDS ORDERED: DEXTROSE 50% 50 ML SYRINGE IV PRN (04:45)
[2016-09-21] MEDS ORDERED: LORazepam 1 MG TAB PO PRN (04:45)
[2016-09-21] MEDS ORDERED: GLUCAGON FOR INJ 1 MG VIAL (J1610) SC PRN (04:45)
[2016-09-21] MEDS ORDERED: MOM 30ML SUSPENSION UDC PO PRN (04:45)
[2016-09-21] MEDS ORDERED: MAALOX 30 ML SUSP *UDC PO PRN (04:45)
[2016-09-21] MEDS ORDERED: traZODone 50 MG TAB PO PRN (04:45)
[2016-09-21] MEDS ORDERED: ACETAMINOPHEN TAB 650MG DOSE (2X325MG) PO PRN (04:45)
[2016-09-21] MEDS ORDERED: HALOPERIDOL 5 MG TAB PO STA (05:16)
[2016-09-21] MEDS ORDERED: LORazepam 1 MG TAB PO STA (05:16)
[2016-09-21 06:03] VITALS: BP 123/80
[2016-09-21] MEDS: ARIPiprazole 10 MG TAB PO SCH ×2 (06:52→21:00)
[2016-09-21] MEDS: FLUoxetine 10 MG CAP PO SCH ×2 (06:52→21:00)
[2016-09-21] MEDS: LEVEMIR (INSULIN DETEMIR) 1 UNITS/0.01ML SC SCH ×2 (06:52→21:00)
[2016-09-21] MEDS: SIMVASTATIN 40 MG TAB PO SCH ×2 (06:52→21:00)
[2016-09-21] MEDS: HumaLOG INSULIN (NovoLOG) PER UNIT SC SCH ×4 (06:52→21:00)
[2016-09-21] MEDS: DOCUSATE SODIUM 100 MG CAP PO SCH ×2 (08:33→21:00)
[2016-09-21] MEDS: metFORMIN (GLUCOPHAGE) 1000 MG TABLET PO SCH ×2 (08:33→17:07)
--- NOTE | 2016-09-21 09:30 | HPEPDOC ---
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 David Serna HPI: 21yoF admitted to [facility] for unspecified depressive disorder, being medically examined today. Pt states has had some allergy symptoms, some popping in the left ear. Denies any fevers, chills, weakness, fatigue, BRADLEY, CP, SOB, cough, palpitations, abdominal pain, N/V/D or changes in bowel or bladder habits. The patient is an unreliable historian, has difficulty providing history and much of her history is taken from the chart. PMHx: Bipolar disorder Schizophrenia Depression Anxiety ADHD Hyperlipidemia IDDM Vitamin D deficiency Developmental delay-resident of [facility] PSHX: Tonsillectomy/adenoidectomy Tympanostomy tubes [place] teeth extraction SOCHX: Resides in: [facility] residence. Marital Status: Single Kids: None Employment: [facility] [employer] Tobacco use: Denies ETOH: Denies Illicit Drugs: Denies IV Drug Use: Denies Tattoos done unprofessionally: Denies FAMHX: Patient is adopted and is unaware of family history ROS: As noted in HPI, otherwise 11pt ROS of systems reviewed and remarkable only for LMP unknown. PE: GEN: 21yoF, appears stated age. Well-nourished, well developed. No acute distress. Alert and oriented x 3. Pleasant, interactive. HEENT: Normocephalic, atraumatic. Pupils are equal, round, and reactive to light. Extraocular movements are intact. No nystagmus appreciated. Sclera are nonicteric. Conjunctiva without injection. Nose midline. Nasal turbinates without bogginess. EACs both patent BL. TMs both visualized and madrigal with good cone of light, no bulging or erythema. No facial asymmetry. Moist mucous membranes. Dentition fair. Pharynx pink and moist, no cobblestoning. Neck supple , trachea midline. No lymphadenopathy or thyromegaly appreciated. CHEST: Regular rate and rhythm, +S1, +S2 LUNGS: Clear to auscultation bilaterally. No wheezes, rales, or rhonchi. Breathing appears symmetric and easy. Patient is speaking in full sentences. No accessory muscle use. ABD: Round, soft, mild suprapubic TTP, non-distended. +Bowel sounds throughout. No rebound or guarding. No costovertebral angle tenderness. EXT: Pulses 2+ bilaterally dorsalis pedis and radial. No lower extremity edema appreciated. SKIN: [place], dry, warm. Capillary refill <2sec. No rashes. NEURO: Alert and oriented x 3. Cranial nerves III-XII are intact. No focal deficits appreciated. EK06/17/16. SINUS RHYTHM Nonspecific T wave abnormality No significant change when compared to prior tracing of 11-16-12 A&P: 21yoF admitted to [facility] for unspecified depressive disorder 1. Psych. Plan per Psychiatry. EKG on file. 2. IDDM. CC diet, SSI. Levemir 33 units daily at bedtime. Metformin 1000 mg by mouth twice a day. Trulicity weekly. FSBS AC/HS. Patient follows as outpatient with [facility]. 3. Hyperlipidemia. Continue with Zocor 40 mg daily. 4. Follow up with PCP on discharge. 5. Patient remains on OCP. 6. Mild suprapubic discomfort. No urinary complaints. Check UA/UC. 7. Add HCG to labs. 8. Allergy symptoms. Add Zyrtec 10 mg daily. 9. Staff member present throughout exam, ALONDRA Osullivan. Vital Signs Vital Signs Date Time Temp Pulse Resp B/P (MAP) Pulse Ox O2 Delivery O2 Flow Rate FiO2 09/21/16 06:03 97.9 94 20 123/80 (94) 09/21/16 04:45 100 Room Air Laboratory Data Labs 24H Laboratory Tests 2 09/21/16 02:45: Anion Gap 7L, Glomerular Filtration Rate > 60.0, Calcium Level 9.1, Aspartate Amino Transf (AST/SGOT) 15, Alanine Aminotransferase (ALT/SGPT) 35, Alkaline Phosphatase 90, Total Bilirubin 0.3, Direct Bilirubin 0.1, Total Protein 6.7, Albumin 3.1L, Albumin/Globulin Ratio 0.86L, Thyroid Stimulating Hormone (TSH) 3.250, Salicylates Level < 1.7L, Acetaminophen Level < 2.0L, Ethyl Alcohol Level < 0.003 09/21/16 02:51: Urine Amphetamines Screen NEGATIVE, Urine Benzodiazepines Screen NEGATIVE, Urine Opiates Screen NEGATIVE, Urine Methadone Screen NEGATIVE, Urine Barbiturates Screen NEGATIVE, Urine Phencyclidine Screen NEGATIVE, Urine Cocaine Metabolite Screen NEGATIVE, Urine Cannabinoids Screen NEGATIVE CBC/BMP Laboratory Tests 09/21/16 02:45 09/21/16 02:47 Red Blood Count 4.53, Mean Corpuscular Volume 90.2, Mean Corpuscular Hemoglobin 29.1, Mean Corpuscular Hemoglobin Concent 32.3, Red Cell Distribution Width 12.5 Home Medications Scheduled (Introvale 0.15-0.03 mg) 1 Tab Tab, 1 TAB PO DAILY (Trulicity) 1.5 Mg/0.5 Ml Inj, 1.5 MG SC 1XWK TAKES ON SATURDAYS (Guanfacine ER) 3 Mg Tab, 3 MG PO QHS Aripiprazole (Abilify) 10 Mg Tab, 10 MG PO QHS Docusate Sodium (Colace) 100 Mg Cap, 100 MG PO BID Fluoxetine Hcl (Fluoxetine) 10 Mg Cap, 30 MG PO QHS Insulin Aspart (Novolog) 100 U/Ml Inj, 1 DOSE SC AC PER SLIDING SCALE Insulin Glargine (Lantus) 1 Units/0.01 Ml Susp, 33 UNITS SC QHS Metformin Hydrochloride (Metformin HCl) 1,000 Mg Tab, 1,000 MG PO BID Simvastatin - High Dose (Zocor) 40 Mg Tab, 40 MG PO QHS Scheduled PRN Lorazepam (Ativan) 1 Mg Tab, 1 MG PO Q6H PRN for AGITATION Allergies Coded Allergies: Topiramate (Verified Allergy, Severe, hallucinations, 06/16/16) Milk-related Compounds (Verified Allergy, Unknown, 07/16/12) Jessica Nash Sep 21, 2016 09:30
[2016-09-21 11:09] LABS: CONTROL LINE HCG INT CTR LINE PRESENT
[2016-09-21] MEDS: CETIRIZINE (ZyrTEC) 10 MG TAB PO SCH (11:56)
--- NOTE | 2016-09-21 16:58 | MHHPEPDOC ---
[facility] History & Physical History and Physical DATE OF ADMISSION: Sep 21, 2016 at 04:42 LEGAL STATUS AT ADMISSION: 9.39 CHIEF COMPLAINT: [facility] staff members brought patient to the emergency room because they thought she might have said that she was suicidal during the day. HISTORY OF THE PRESENT ILLNESS: Patient is a 21-year-old female, who was brought to the emergency room because [facility] staff members thought she might have said that she was suicidal during the day. According to the emergency report and the information that was gathered, [facility] staff members believe that her mood has being shifting to often lately and her affect has been labile. They expressed that when she gets angry she becomes very aggressive and difficult to manage. Apparently her mother verified that information. bench worker at the inpatient mental health unit contacted [facility] staff and they were able to tell her that she has been aggressive during the last 3 weeks and she has kicked twice her therapist. Apparently she is obsessed with one of her therapists and she only seeks help from her. Staff members report that is hard for patient to speak about her emotions and then, they build up and she explodes when she cannot handle it anymore. Patient was seen this morning and she was crying because she thought she was not going to go back home (home is [facility]). She explained that she was not serious when she said that she rather be . She states that when she feels frustrated or angry she expresses her emotions in the wrong way and most of the time she says things that she regrets saying because she didn't mean to say them. At this time the patient denies suicidal ideation and homicidal ideation. PSYCHIATRIC REVIEW OF SYSTEMS: Affective: Tearful, sad, hopeless and helpless. Anxiety: High. Trauma: Denied. Psychosis: Denied having auditory or visual hallucinations and denied thought delusions at the present time. Personally: Needs further assessment. PAST PSYCHIATRIC HISTORY: Prior Psychiatric Disorder: Patient has been a [facility] for approximately one year according to patient. She reports she lives there because her relationship with her mother was very difficult since they kept fighting all the time and because her mother couldn't deal with her anymore she was placed at [facility]. She says she has been told that she has bipolar disorder. Outpatient Treatment: She receives treatment through [facility]. Suicidal/Self injurious: She denies having previous suicide attempts. Psychotropic Medication History: . ALLERGIES: Please see below. FAMILY PSYCHIATRIC HISTORY: Patient denies. SOCIAL HISTORY: Early Relations/development: Patient reports being close to both parents but she has always had a difficult relationship with mother. She has a good relationship with her father. Sibling order: . Paternal relationships: Conflictive relationship with mother. Education: . Occupational: She works. Legal: Denies. Martial: Not . Economic: Not financially independent. Supports: Her mother. Abuse/trauma: Denies. SUBSTANCE ABUSE HISTORY: Denies alcohol, marijuana, cocaine, crack, opiates abuse or use. Denies alcohol and cigarettes abuse or use. PAST MEDICAL/SURGICAL HISTORY: 1.H/O tonsillectomy 2. IDDM. VITAL SIGNS: Stable. MENTAL STATUS EXAMINATION: General appearance: Patient is a 21-year old female, who is alert, oriented 3, disheveled, dressed in hospital clothes, with good eye contact. Speech: Normal. Thought processes: Intact Thought content: She perseveres about going back to [facility]. Abstract reasoning and computation: Fair. Description of associations: Not loose. Description of abnormal or psychotic thoughts: Not delusional. She denies suicidal and homicidal ideations. Denies auditory or visual hallucinations. Judgment: Poor. Insight: Poor. Orientation: Oriented 3. Recent and remote memory: Intact. Attention span and concentration: Fair. Fund of knowledge: Fair. Mood: "I'm anxious." Affect: Sad. DIAGNOSES: 1. Unspecified depressive disorder 2. Bipolar disorder by history 3. Rule out borderline personality traits. ASSESSMENT: The patient is very anxious about going back home, she states that she wants to go back to work, that she misses what she calls her family, that are the staff members and her peers at [facility]. The patient is denying suicidal ideation but she will be monitored for any mood/behavioral changes and if she is stabilized she could be discharged back to [facility]. PROBLEM LIST: 1. Risk for suicide. 2. Depression. 3. Ineffective coping. 4. Anxiety INITIAL TREATMENT PLAN: 1. Patient was admitted on a 939 2. Complete history was obtained. 3. With patients permission, family will be contacted and database will be expanded. 4. Patients medication regimen will be reviewed and changed accordingly. 5. Patient will be provided with protected environment. 6. Patient will be treated with individual, group, and milieu therapies. 7. Patient will receive supportive psych-education. 8. Discharge planning will commence immediately. 9. Outpatient follow-up treatment will be strongly recommended. 10. The initial treatment plan will focus initially on: * Depression. * Risk for suicide. * Substance abuse. ESTIMATED LENGTH OF STAY: 5-7 DAYS. TIME SPENT COUNSELING AND COORDINATING INITIAL CARE: 30 minutes. Laboratory Data 24H Labs Laboratory Tests 2 09/21/16 02:45: Anion Gap 7L, Glomerular Filtration Rate > 60.0, Calcium Level 9.1, Aspartate Amino Transf (AST/SGOT) 15, Alanine Aminotransferase (ALT/SGPT) 35, Alkaline Phosphatase 90, Total Bilirubin 0.3, Direct Bilirubin 0.1, Total Protein 6.7, Albumin 3.1L, Albumin/Globulin Ratio 0.86L, Thyroid Stimulating Hormone (TSH) 3.250, Salicylates Level < 1.7L, Acetaminophen Level < 2.0L, Ethyl Alcohol Level < 0.003 09/21/16 02:51: Urine Amphetamines Screen NEGATIVE, Urine Benzodiazepines Screen NEGATIVE, Urine Opiates Screen NEGATIVE, Urine Methadone Screen NEGATIVE, Urine Barbiturates Screen NEGATIVE, Urine Phencyclidine Screen NEGATIVE, Urine Cocaine Metabolite Screen NEGATIVE, Urine Cannabinoids Screen NEGATIVE 09/21/16 10:14: Human Chorionic Gonadotropin, Qual NEGATIVE 09/21/16 11:59: Bedside Glucose (Misc Panel) 205H CBC/BMP Laboratory Tests 09/21/16 02:45 09/21/16 02:47 Red Blood Count 4.53, Mean Corpuscular Volume 90.2, Mean Corpuscular Hemoglobin 29.1, Mean Corpuscular Hemoglobin Concent 32.3, Red Cell Distribution Width 12.5 FSBS Laboratory Tests Test 09/21/16 11:59 Range/Units Bedside Glucose (Misc Panel) 205 70-105 MG/DL Medications Scheduled (Introvale 0.15-0.03 mg) 1 Tab Tab, 1 TAB PO DAILY, (Reported) (Trulicity) 1.5 Mg/0.5 Ml Inj, 1.5 MG SC 1XWK, (Reported) TAKES ON SATURDAYS (Guanfacine ER) 3 Mg Tab, 3 MG PO QHS, (Reported) Aripiprazole (Abilify) 10 Mg Tab, 10 MG PO QHS, (Reported) Docusate Sodium (Colace) 100 Mg Cap, 100 MG PO BID, (Reported) Fluoxetine Hcl (Fluoxetine) 10 Mg Cap, 30 MG PO QHS, (Reported) Insulin Aspart (Novolog) 100 U/Ml Inj, 1 DOSE SC AC, (Reported) PER SLIDING SCALE Insulin Glargine (Lantus) 1 Units/0.01 Ml Susp, 33 UNITS SC QHS, (Reported) Metformin Hydrochloride (Metformin HCl) 1,000 Mg Tab, 1,000 MG PO BID, (Reported ) Simvastatin - High Dose (Zocor) 40 Mg Tab, 40 MG PO QHS, (Reported) Scheduled PRN Lorazepam (Ativan) 1 Mg Tab, 1 MG PO Q6H PRN for AGITATION, (Reported) Allergies Coded Allergies: Topiramate (Verified Allergy, Severe, hallucinations, 06/16/16) Milk-related Compounds (Verified Allergy, Unknown, 07/16/12) KAREN TEJEDA MD Sep 21, 2016 16:58
[2016-09-21 18:00] VITALS: BP 138/94
[2016-09-22 06:31] VITALS: BP 138/84
[2016-09-22] MEDS: HumaLOG INSULIN (NovoLOG) PER UNIT SC SCH ×4 (06:38→20:18)
[2016-09-22] MEDS: DOCUSATE SODIUM 100 MG CAP PO SCH ×2 (08:28→20:18)
[2016-09-22] MEDS: CETIRIZINE (ZyrTEC) 10 MG TAB PO SCH (08:28)
[2016-09-22] MEDS: metFORMIN (GLUCOPHAGE) 1000 MG TABLET PO SCH ×2 (08:28→17:17)
--- NOTE | 2016-09-22 10:43 | MHIPNPDOC ---
[facility] Progress Note Progress Note DATE OF SERVICE: 09/22/16 INTERVAL HISTORY: Medication Side effects: She reported that she slept really well, that she got her sleep cycle back again thanks to the medication and denied medication side effects. Behavior: She has skipped the behavior, she has been able to control her impulses, she hasn't been agitated or violent, has been compliant with medications, has been attending groups and has been interacting properly with staff and peers. Group Attendance: Is attending groups Psychiatric Symptom change: She is a little bit less anxious than she was yesterday. She has been able to sleep and her mood is not depressed at this time. She has denied suicidal ideation and any thoughts of harming other people. VITAL SIGNS: See below. NEW TEST RESULTS: See below CURRENT MEDICATIONS: See below. MENTAL STATUS EXAMINATION: General: Alert, cooperative, with a pleasant attitude, with good eye contact. Speech: Normal Thought processes: Rational, organized Thought content: She has persistent thoughts about going back to [facility], which is her home. She wants to do everything right in order to be able to return to her home. Abstract reasoning, and computation: Fair Description of associations: Not loose Description of abnormal or psychotic thoughts: She has denies suicidal ideation, , homicidal ideation, has denied auditory or visual hallucinations, denies paranoid or persecutory delusions. Denies grandiose delusions and denies obsessive thoughts/compulsions. Judgment: Improving Insight: Improving Orientation: Oriented 3 Recent and remote memory: Intact Attention span and concentration: Fair Fund of knowledge: Adequate Mood: "I am less irritable" Affect: Full range, mood congruent, appropriate, slightly anxious DIAGNOSES: 1. Bipolar disorder by history 2. Rule out impulse control disorder ASSESSMENT: The patient has improved, she has continued taking her medication, has been attending groups and has been able to control her temper and her impulses. Her behavior and demeanor has been appropriate. Today she is hopeful and she is looking forward to returning home. Yesterday she was feeling hopeless and helpless, she was tearful and sad. She will be closely monitored for any behavioral/mood change and if she continues to be stable she will be discharged home tomorrow. MANAGEMENT PLAN: Medications: Aripiprazole 10 mg by mouth daily at bedtime, Prozac 30 mg by mouth daily at bedtime and trazodone 50 mg by mouth daily at bedtime Psychotherapy: Will encourage her to continue attending groups Social: She has had a positive social interaction with staff and peers. Has been able to stay away from patients who makes her feel uncomfortable. [facility]: -- Disposition: If she continues to be stable she will be discharged to [facility] tomorrow TIME SPENT: 20 minutes. Vital Signs Vital Signs Date Time Temp Pulse Resp B/P (MAP) Pulse Ox O2 Delivery O2 Flow Rate FiO2 09/22/16 06:31 97.7 92 18 138/84 (102) 09/21/16 04:45 100 Room Air Laboratory Data 24H Labs Laboratory Tests 2 09/21/16 11:59: Bedside Glucose ([facility] Panel) 205H 09/21/16 17:04: Bedside Glucose ([facility] Panel) 212H 09/22/16 08:00: Urine Appearance CLOUDYH, Urine Color YELLOW, Urine pH 5.0, Urine Specific [place] 1.013, Urine Protein NEGATIVE, Urine Glucose (UA) NEGATIVE, Urine Ketones NEGATIVE, Urine Urobilinogen 0.2, Urine Bilirubin NEGATIVE, Urine Leukocyte Esterase TRACEH, Urine Blood NEGATIVE, Urine Nitrite NEGATIVE, Urine WBC (Auto) 3, Urine RBC (Auto) 2, Urine Hyaline Casts (Auto) 0, Urine Bacteria ( Auto) 1+H, Urine Squamous Epithelial Cells 28, Urine Transitional Epithelial Cells 2, Urine Mucus (Auto) SMALL, Urine Sperm (Auto) Current Medications Current Medications Acetaminophen (Tylenol Tab) 650 mg Q6HP PRN PO HEADACHE or DISCOMFORT; Start at 04:45; Stop 10/21/16 at 04:44 Al Hydrox/Mg Hydrox/Simethicone (Mylanta) 30 ml Q4HP PRN PO HEARTBURN/ INDIGESTION; Start 09/21/16 at 04:45; Stop 10/21/16 at 04:44 Aripiprazole (AbiLIFY) 10 mg QHS PO ; Start 09/20/16 at 21:00; Stop 10/20/16 at 20 :59 Cetirizine HCl (ZyrTEC) 10 mg DAILY PO Last administered on 09/22/16t 08:28; Start 09/21/16 at 09:00; Stop 10/21/16 at 08:59 Dextrose (Dextrose 50%) 25 ml ASDIRECTED PRN IV SEE LABEL COMMENTS; Start at 04:45; Stop 10/21/16 at 04:44 Docusate Sodium (Colace) 100 mg BID PO Last administered on 09/22/16 08:28; Start 09/21/16 at 09:00; Stop 10/21/16 at 08:59 Fluoxetine HCl (PROzac) 30 mg QHS PO ; Start 09/20/16 at 21:00; Stop 10/20/16 at 20:59 Glucagon (Glucagon) 1 mg ASDIRECTED PRN SC SEE LABEL COMMENTS; Start 09/21/16 at 04:45; Stop 10/21/16 at 04:44 Glucose (Glucose) 16 GM ASDIRECTED PRN PO SEE LABEL COMMENTS; Start 09/21/16 at 04:45; Stop 10/21/16 at 04:44 Haloperidol (Haldol) 5 mg STAT STAT PO Last administered on 09/21/16 05:16; Start 09/21/16 at 05:16; Stop 09/21/16 at 05:18; Status DC Home Med (Med Rec Complete!) ASDIRECTED XX ; Start 09/21/16 at 04:30; Stop at 04:32; Status DC Insulin Detemir (Levemir Insulin) 33 units QHS SC ; Start 09/20/16 at 21:00; Stop 10/20/16 at 20:59 Insulin Human Lispro (HumaLOG INSULIN) See Protocol Table AC SC Last administered on 09/22/16 06:38; Start 09/21/16 at 07:30; Stop 10/21/16 at 07:29 Insulin Human Lispro (HumaLOG INSULIN) See Protocol Table QHS SC ; Start at 21:00; Stop 10/21/16 at 20:59 Lorazepam (Ativan) 1 mg Q6HP PRN PO AGITATION; Start 09/21/16 at 04:45; Stop at 04:44 Lorazepam (Ativan) 1 mg STAT STAT PO Last administered on 09/21/16 05:16; Start 09/21/16 at 05:16; Stop 09/21/16 at 05:18; Status DC Magnesium Hydroxide (Milk Of Magnesia) 30 ml DAILYPRN PRN PO CONSTIPATION; Start 09/21/16 at 04:45; Stop 10/21/16 at 04:44 Metformin HCl (Glucophage) 1,000 mg BID@0800,1800 PO Last administered on t 08:28; Start 09/21/16 at 08:00; Stop 10/21/16 at 07:59 Miscellaneous (Unresolved Patient Own Med Order) SEE LABEL COMMENTS UNRESOLVED XX ; Start 09/21/16 at 00:01; Stop 09/22/16 at 09:13; Status DC Miscellaneous (Unresolved Patient Own Med Order) SEE LABEL COMMENTS UNRESOLVED XX ; Start 09/21/16 at 00:01; Stop 09/22/16 at 09:13; Status DC Patient Own Medication (Patient'S Own Med) 1 TABLET DAILY PO ; Start 09/22/16 at 09:00; Stop 10/22/16 at 08:59 Patient Own Medication (Patient'S Own Med) 1 TABLET QHS PO ; Start 09/22/16 at 21 :00; Stop 10/22/16 at 20:59 Patient Own Medication (Patient'S Own Med) 1 ea DAILY PO ; Start 09/23/16 at 09: 00; Stop 09/23/16 at 09:00; Status DC Patient Own Medication (Patient'S Own Med) TRULICITY 0.75MG/ 0.5ML ... Sa@0900 SC ; Start 09/24/16 at 09:00; Stop 10/24/16 at 08:59; Status UNV Simvastatin (Zocor) 40 mg QHS PO ; Start 09/20/16 at 21:00; Stop 10/20/16 at 20:59 Trazodone HCl (Desyrel) 50 mg QHSP PRN PO INSOMNIA; Start 09/21/16 at 04:45; Stop 10/21/16 at 04:44 Allergies Coded Allergies: Topiramate (Verified Allergy, Severe, hallucinations, 06/16/16) Milk-related Compounds (Verified Allergy, Unknown, 07/16/12) KAREN TEJEDA MD Sep 22, 2016 10:43
[2016-09-22] MEDS: INTROVALE PO SCH (11:34)
[2016-09-22 12:00] VITALS: BP 138/82
[2016-09-22 18:26] VITALS: BP 134/86
[2016-09-22] MEDS: LEVEMIR (INSULIN DETEMIR) 1 UNITS/0.01ML SC SCH (20:17)
[2016-09-22] MEDS: FLUoxetine 10 MG CAP PO SCH (20:18)
[2016-09-22] MEDS: ARIPiprazole 10 MG TAB PO SCH (20:18)
[2016-09-22] MEDS: SIMVASTATIN 40 MG TAB PO SCH (20:18)
[2016-09-22] MEDS ORDERED: GUANFACINE ER 3MG TABLET (PATIENT'S OWN MED) PO SCH (21:00)
[2016-09-23] MEDS: HumaLOG INSULIN (NovoLOG) PER UNIT SC SCH ×2 (06:38→12:22)
[2016-09-23 07:14] VITALS: BP 149/98
[2016-09-23] MEDS: metFORMIN (GLUCOPHAGE) 1000 MG TABLET PO SCH (08:06)
[2016-09-23] MEDS: INTROVALE PO SCH (08:06)
[2016-09-23] MEDS: CETIRIZINE (ZyrTEC) 10 MG TAB PO SCH (08:06)
[2016-09-23] MEDS: DOCUSATE SODIUM 100 MG CAP PO SCH (08:06)
[2016-09-23] MEDS ORDERED: ENTER DRUG NAME HERE (PATIENT'S OWN MED) PO SCH (09:00)
[2016-09-23] MEDS ORDERED: TRAZO50TA PO (13:46)
[2016-09-23] MEDS ORDERED: FLUO10CA9 PO (13:46)
[2016-09-23] MEDS ORDERED: ARIP10TAB PO (13:46)
--- NOTE | 2016-09-23 22:19 | MHDSPDOC ---
[facility] Discharge Summary Discharge Summary DATE OF ADMISSION: Sep 21, 2016 at 04:42 DATE OF DISCHARGE: Sep 23, 2016 at 14:55 DISCHARGE DIAGNOSES: 1. Bipolar Disorder 2. Mild Intellectual Disability REASON FOR ADMISSION: The patient was brought from to [facility] to the ER at [facility] because "they thought she had said during the day that she was going to kill herself." They reported that her affect had been labile and had some angry outbursts during the previous week. CONSULTANTS INVOLVED: None TREATMENT AND PROGRESS ON THE UNIT : The patient continued taking the same medication she had been taking at [facility] and on her first night at the [facility] she didnt take them, she said, because she was sleeping but staff said that she refused. She responded well to limits and behavioral modification, attended groups. Was not explosive or violent to anyone and was motivated to modify her behavior. She reported that one of the patients scared her and told her she shouldnt take her medications. She was very anxious to go back to [facility] ( which she calls "home, brcause thats my home and my family, you know?"). HOSPITAL COURSE:As above. DISCHARGE ASSESSMENT: Patient was alert, oriented, not suicidal, not psychotic, not in danger to self or otehrs. MENTAL STATUS EXAMINATION ON DISCHARGE: Patient is a 21-year old female, who is alert, cooperative, pleasant Speech is Normal. Language skills are Fair. Thought processes including: Slightly slow processing. not tangential and not circumstantial. Thought content: She perseveres about going back home. Abstract reasoning, and computation: Slightly limited. Description of associations: Not loose. Description of abnormal or psychotic thoughts: Not suicidal, not homicidal, not psychotic. Judgment: Improved. Insight: Improved. Orientation to Oriented x 3. Recent and remote memory: Intact. Attention span and concentration: Fair. Language: Fair. Fund of knowledge: Fair. Mood: "Happy". Affect: Appropriatte, full range, congruent to mood.. MEDICATIONS ON DISCHARGE: - Prozac 30 mgs for depression. - Aripiprazole 10 mgs. PO for bipolar depresion/psychosis - Trazodone 50 mgs. Po for insomnia. PLAN/FOLLOWUP ARRANGEMENTS:will be discharched to [facility]. The amount of time spent in the coordination of care for this patient was approximately 35 minutes. Vital Signs/I&Os Vital Signs Date Time Temp Pulse Resp B/P (MAP) Pulse Ox O2 Delivery O2 Flow Rate FiO2 09/23/16 07:14 98.1 83 16 149/98 (115) 09/21/16 04:45 100 Room Air Laboratory Data Labs 24H Laboratory Tests 2 09/23/16 06:35: Bedside Glucose (Misc Panel) 252H 09/23/16 11:49: Bedside Glucose (Misc Panel) 277H Microbiology Microbiology 09/22/16 Urine Culture - Final, Complete Medications Scheduled (Introvale 0.15-0.03 mg) 1 Tab Tab, 1 TAB PO DAILY, (Reported) (Trulicity) 1.5 Mg/0.5 Ml Inj, 1.5 MG SC 1XWK, (Reported) TAKES ON SATURDAYS (Guanfacine ER) 3 Mg Tab, 3 MG PO QHS, (Reported) Aripiprazole (Abilify) 10 Mg Tab, 10 MG PO QHS, (Reported) Aripiprazole (Aripiprazole) 10 Mg Tab, 10 MG PO QHS for MOOD, #7 Docusate Sodium (Colace) 100 Mg Cap, 100 MG PO BID, (Reported) Fluoxetine HCl (Fluoxetine HCl) 10 Mg Cap, 30 MG PO QHS for MOOD, #21 Fluoxetine Hcl (Fluoxetine) 10 Mg Cap, 30 MG PO QHS, (Reported) Insulin Aspart (Novolog) 100 U/Ml Inj, 1 DOSE SC AC, (Reported) PER SLIDING SCALE Insulin Glargine (Lantus) 1 Units/0.01 Ml Susp, 33 UNITS SC QHS, (Reported) Metformin Hydrochloride (Metformin HCl) 1,000 Mg Tab, 1,000 MG PO BID, (Reported ) Simvastatin - High Dose (Zocor) 40 Mg Tab, 40 MG PO QHS, (Reported) Scheduled PRN Lorazepam (Ativan) 1 Mg Tab, 1 MG PO Q6H PRN for AGITATION, (Reported) Trazodone HCl (Trazodone HCl) 50 Mg Tab, 50 MG PO QHSP PRN for INSOMNIA, #7 Allergies Coded Allergies: Topiramate (Verified Allergy, Severe, hallucinations, 06/16/16) Milk-related Compounds (Verified Allergy, Unknown, 07/16/12) KAREN TEJEDA MD Sep 23, 2016 22:19
[2016-09-24] MEDS ORDERED: TRULICITY 1.5 MG/0.5 ML SC SCH (09:00)
[2016-09-24] MEDS ORDERED: DULAGLUTIDE 0.75 MG/0.5 ML SC SCH (09:00)
== END 2016-09-23 14:55 | disposition home or self-care (01) | DRG 753 ==
LOC: M ED 09-21 00:24 → M ED INP 09-21 04:42 → M PSY 09-21 05:00
PROVIDERS: ADMIT Psychiatry & Neurology Psychiatry; ATTEND Psychiatry & Neurology Psychiatry
DX: F31.9 Bipolar disorder, unspecified (principal); F70 Mild intellectual disabilities; Z79.899 Other long term (current) drug therapy; Z79.4 Long term (current) use of insulin; Z88.8 Allergy status to other drugs, medicaments and biological substances; Z91.011 Allergy to milk products; E55.9 Vitamin D deficiency, unspecified; E78.5 Hyperlipidemia, unspecified

== ENCOUNTER → 2016-09-25 | Outpatient (REF) | payer BC ==
[~2016-09-25] MED LIST changes: +ABIL1TAB5 PO; +ARIP10TAB PO; +FLUO10CA9 PO; +TRAZO50TA PO; +TRUL0.5I SC
== END ==
LOC: M LAB REF 09:12
PROVIDERS: ATTEND Physician Assistant
DX: J02.9 Acute pharyngitis, unspecified (principal)

== ENCOUNTER → 2016-11-13 | Outpatient (REF) | payer BC, MEDICAID ==
[~2016-11-13] MED LIST changes: +ABIL10TA9 PO; +ABIL1TAB11 PO; -ABIL1TAB5 PO; -ABIL5TAB5 PO; -COLA100C3 PO; +COLA100C5 PO; -FARX1TAB2 PO; +FARX1TAB3 PO; +METF10004 PO
== END ==
LOC: M LAB REF 18:12
PROVIDERS: ATTEND Physician Assistant
DX: B37.3 Candidiasis of vulva and vagina (principal); S29.012A Strain of muscle and tendon of back wall of thorax, initial encounter; X58.XXXA Exposure to other specified factors, initial encounter; Y92.89 Other specified places as the place of occurrence of the external cause; Y93.89 Activity, other specified; Y99.8 Other external cause status

== ENCOUNTER → 2017-02-23 | Outpatient (REF) | payer BC | LOC: M LAB REF 09:27 | PROVIDERS: ATTEND Physician Assistant | DX: R30.0 Dysuria (principal) ==

== ENCOUNTER → 2017-03-27 | Outpatient (REF) | payer BC | LOC: EEVIPCON 14:25 → M LAB REF 14:25 | PROVIDERS: ATTEND Physician Assistant | DX: L03.011 Cellulitis of right finger (principal) ==

== ENCOUNTER 2017-04-17 15:52 | Emergency (ER) | payer BC | END 2017-04-17 17:35 | disposition home or self-care (01) | LOC: M ED 15:52 | DX: F63.81 Intermittent explosive disorder (principal); E11.9 Type 2 diabetes mellitus without complications; F41.9 Anxiety disorder, unspecified; F31.9 Bipolar disorder, unspecified; E78.00 Pure hypercholesterolemia, unspecified; Z79.4 Long term (current) use of insulin; Z79.899 Other long term (current) drug therapy; Z91.018 Allergy to other foods; Z88.8 Allergy status to other drugs, medicaments and biological substances | CPT/HCPCS: 99283 ==

== ENCOUNTER → 2017-04-24 | Outpatient (REF) | payer BC | LOC: M LAB REF 04-25 12:28 | DX: R11.2 Nausea with vomiting, unspecified (principal) | CPT/HCPCS: 87086 ==

== ENCOUNTER 2017-06-20 15:54 | Inpatient (IN) | payer BC ==
[2017-06-20 18:22] LABS: BEDSIDE GLUCOSE 153 MG/DL (70-105)
[2017-06-20 18:48] LABS: AMPHETAMINES LEVEL URINE NEGATIVE (NEGATIVE); BARBITURATES URINE NEGATIVE (NEGATIVE); BENZODIAZEPINES URINE NEGATIVE (NEGATIVE); CANNABINOIDS URINE NEGATIVE (NEGATIVE); COCAINE METABOLITE URINE NEGATIVE (NEGATIVE); METHADONE URINE NEGATIVE (NEGATIVE); OPIATES URINE NEGATIVE (NEGATIVE); PHENCYCLIDINE URINE NEGATIVE (NEGATIVE)
[2017-06-20 18:53] LABS: HEMATOCRIT 37.9 % (36.0-47.0); HEMOGLOBIN 12.4 g/dl (12.0-16.0); MEAN CORPUSCULAR HEMOGLOBIN 28.1 pg (27.0-33.0); MEAN CORPUSCULAR HGB CONC 32.7 g/dl (32.0-36.5); MEAN CORPUSCULAR VOLUME 85.7 fl (80.0-96.0); PLATELET COUNT, AUTOMATED 410 10^3/uL (150-450); RED BLOOD COUNT 4.42 10^6/uL (4.00-5.40); RED CELL DISTRIBUTION WIDTH 12.9 % (11.5-14.5); WHITE BLOOD COUNT 8.8 10^3/uL (4.0-10.0)
[2017-06-20 19:05] LABS: ALBUMIN 3.5 GM/DL (3.2-5.2); ALKALINE PHOSPHATASE 107 U/L (45-117); ALT/SGPT 32 U/L (12-78); ANION GAP 6 MEQ/L (8-16); AST/SGOT 18 U/L (7-37); BILIRUBIN,DIRECT 0.1 MG/DL (0.0-0.2); BILIRUBIN,TOTAL 0.3 MG/DL (0.2-1.0); BLOOD UREA NITROGEN 10 MG/DL (7-18); CALCIUM LEVEL 8.9 MG/DL (8.5-10.1); CARBON DIOXIDE LEVEL 27 MEQ/L (21-32); CHLORIDE LEVEL 109 MEQ/L (98-107); CREATININE FOR GFR 0.62 MG/DL (0.55-1.30); GLOMERULAR FILTRATION RATE > 60.0 (>60); GLUCOSE, FASTING 150 MG/DL (70-100); POTASSIUM SERUM 4.1 MEQ/L (3.5-5.1); SALICYLATE LEVEL < 1.7 MG/DL (5.0-30.0); SODIUM LEVEL 142 MEQ/L (136-145); THYROID STIMULATING HORMONE 0.976 uIU/ML (0.358-3.740); TOTAL PROTEIN 7.4 GM/DL (6.4-8.2)
[2017-06-20 19:08] LABS: ACETAMINOPHEN LEVEL < 2.0 UG/ML (10.0-30.0); ETHYL ALCOHOL (ETHANOL) < 0.003 % (0.000-0.010)
[2017-06-20 19:33] LABS: CONTROL LINE UCG INT CTR LINE PRESENT; URINE PREG TEST NEGATIVE (NEGATIVE)
[2017-06-20] MEDS: FLUoxetine 20 MG CAP PO (21:00)
[2017-06-20] MEDS: LEVEMIR (INSULIN DETEMIR) 1 UNITS/0.01ML SC (21:00)
[2017-06-20] MEDS: ARIPiprazole 10 MG TAB PO (21:00)
[2017-06-20] MEDS: SIMVASTATIN 40 MG TAB PO (21:00)
[2017-06-20] MEDS: HumaLOG INSULIN (NovoLOG) PER UNIT SC (21:00)
[2017-06-20] MEDS: traZODone 50 MG TAB PO (21:30)
[2017-06-20] MEDS ORDERED: MOM 30ML SUSPENSION UDC PO (23:00)
[2017-06-20] MEDS ORDERED: MAALOX 30 ML SUSP *UDC PO (23:00)
[2017-06-20] MEDS ORDERED: ACETAMINOPHEN TAB 650MG DOSE (2X325MG) PO (23:00)
[2017-06-20] MEDS ORDERED: GLUCOSE 4 GM CHEW TABLET PO (23:15)
[2017-06-20] MEDS ORDERED: ENTER DRUG NAME HERE (PATIENT'S OWN MED) PO (23:15)
[2017-06-20] MEDS ORDERED: DEXTROSE 50% 50 ML SYRINGE IV (23:15)
[2017-06-20] MEDS ORDERED: GLUCAGON FOR INJ 1 MG VIAL (J1610) SC (23:15)
[2017-06-21 06:25] LABS: BEDSIDE GLUCOSE 144 MG/DL (70-105)
[2017-06-21] MEDS: HumaLOG INSULIN (NovoLOG) PER UNIT SC ×4 (06:39→20:21)
[2017-06-21] MEDS: DOCUSATE SODIUM 100 MG CAP PO ×2 (08:43→20:18)
[2017-06-21] MEDS: metFORMIN (GLUCOPHAGE) 1000 MG TABLET PO ×2 (08:43→17:07)
[2017-06-21 10:58] LABS: CONTROL LINE HCG INT CTR LINE PRESENT; HCG, SERUM QUALITATIVE NEGATIVE (NEGATIVE)
[2017-06-21 12:11] LABS: BEDSIDE GLUCOSE 177 MG/DL (70-105)
[2017-06-21] MEDS: LEVONORGESTREL PO (15:36)
[2017-06-21] MEDS: ETHINYL ESTRADIOL PO (15:36)
[2017-06-21 17:07] LABS: BEDSIDE GLUCOSE 100 MG/DL (70-105)
[2017-06-21] MEDS: LURASIDONE 20 MG TAB (LATUDA) PO (18:06)
[2017-06-21] MEDS: SIMVASTATIN 40 MG TAB PO (20:18)
[2017-06-21] MEDS: ARIPiprazole 10 MG TAB PO (20:18)
[2017-06-21] MEDS: FLUoxetine 20 MG CAP PO (20:18)
[2017-06-21 20:25] LABS: BEDSIDE GLUCOSE 137 MG/DL (70-105)
[2017-06-21] MEDS: traZODone 50 MG TAB PO (20:25)
[2017-06-21] MEDS: LEVEMIR (INSULIN DETEMIR) 1 UNITS/0.01ML SC (21:26)
[2017-06-22 06:25] LABS: BEDSIDE GLUCOSE 132 MG/DL (70-105)
[2017-06-22] MEDS: HumaLOG INSULIN (NovoLOG) PER UNIT SC ×4 (06:29→21:00)
[2017-06-22] MEDS: ETHINYL ESTRADIOL PO (08:24)
[2017-06-22] MEDS: metFORMIN (GLUCOPHAGE) 1000 MG TABLET PO ×2 (08:24→17:24)
[2017-06-22] MEDS: DOCUSATE SODIUM 100 MG CAP PO ×2 (08:24→20:47)
[2017-06-22] MEDS: LEVONORGESTREL PO (08:24)
[2017-06-22 17:02] LABS: BEDSIDE GLUCOSE 144 MG/DL (70-105)
[2017-06-22] MEDS: LURASIDONE 20 MG TAB (LATUDA) PO (17:48)
[2017-06-22] MEDS: LEVEMIR (INSULIN DETEMIR) 1 UNITS/0.01ML SC (20:47)
[2017-06-22] MEDS: traZODone 50 MG TAB PO (20:47)
[2017-06-22] MEDS: ARIPiprazole 10 MG TAB PO (20:47)
[2017-06-22] MEDS: SIMVASTATIN 40 MG TAB PO (20:47)
[2017-06-22] MEDS: FLUoxetine 20 MG CAP PO (20:47)
[2017-06-22 20:49] LABS: BEDSIDE GLUCOSE 162 MG/DL (70-105)
[2017-06-23 06:30] LABS: BEDSIDE GLUCOSE 186 MG/DL (70-105)
[2017-06-23] MEDS: HumaLOG INSULIN (NovoLOG) PER UNIT SC ×2 (06:35→11:59)
[2017-06-23] MEDS: LEVONORGESTREL PO (08:06)
[2017-06-23] MEDS: ETHINYL ESTRADIOL PO (08:06)
[2017-06-23] MEDS: DOCUSATE SODIUM 100 MG CAP PO (08:06)
[2017-06-23] MEDS: metFORMIN (GLUCOPHAGE) 1000 MG TABLET PO (08:06)
[2017-06-23 11:38] LABS: BEDSIDE GLUCOSE 237 MG/DL (70-105)
[2017-06-23 13:10] LABS: BEDSIDE GLUCOSE 146 MG/DL (70-105)
== END 2017-06-23 15:18 | disposition home or self-care (01) | DRG 753 ==
LOC: M ED 15:54 → M ED INP 21:47 → M PSY 22:39
DX: F31.9 Bipolar disorder, unspecified (principal); E11.9 Type 2 diabetes mellitus without complications; F79 Unspecified intellectual disabilities; F60.89 Other specific personality disorders; E78.5 Hyperlipidemia, unspecified; Z79.4 Long term (current) use of insulin; Z79.899 Other long term (current) drug therapy; Z88.8 Allergy status to other drugs, medicaments and biological substances; Z91.011 Allergy to milk products

== ENCOUNTER → 2017-08-28 | Outpatient (REF) | payer BC | LOC: M LAB REF 09:38 | DX: R30.0 Dysuria (principal) | CPT/HCPCS: 87086 ==

== ENCOUNTER → 2018-07-25 | Outpatient (REF) | payer BC, MEDICAID ==
[~2018-07-25] MED LIST changes: -/GLIM4TA PO; -/ONDA4TA PO; +ACID100C PO; +AMAR1TAB6 PO; -ARIP10TAB PO; +ARIP1TAB PO; +ARIP1TAB6 PO; -ARIP5TA PO; +ATIV1TAB10 PO; +FLUO1TAB3 PO; +GLUC1VIA2 SC; -GLUC1VL SC; +GLUC4CHW19 PO; +HYDRO50TAB PO; +INSUHUMDS SC; +INTR1TAB PO; -INTRTAB PO; +JUICE PLUS PO; +L-NO1TBD PO; +LATU20TA PO; +ONDA-1 PO; +QUET5TAB PO; +TRAZ-160 PO; -[UNRECOGNIZED DRUG - CODE] PO
[2018-07-25 22:43] LABS: INFLUENZA A AMPLIFICATION NEGATIVE (NEGATIVE); INFLUENZA B AMPLIFICATION NEGATIVE (NEGATIVE)
== END ==
LOC: M LAB REF 13:34
PROVIDERS: ATTEND Physician Assistant
DX: J11.1 Influenza due to unidentified influenza virus with other respiratory manifestations (principal)

== ENCOUNTER 2018-09-23 18:19 | Inpatient (IN) | payer BC, MEDICAID ==
[~2018-09-23] VITALS: Ht 162.6 cm; Wt 78.7 kg
[~2018-09-23 18:19] MED LIST changes: -TRAZ-160 PO; +TRAZ-252 PO; +TRAZ1TAB10 PO; -TRAZO50TA PO
[2018-09-23] MEDS ORDERED: LANTINJ4 SC (18:40)
[2018-09-23] MEDS ORDERED: NOVOINJ SC (18:40)
[2018-09-23] MEDS ORDERED: INTU3TAB PO (18:40)
[2018-09-23] MEDS ORDERED: LEVOTAB18 PO (18:40)
[2018-09-23 19:12] LABS: HEMATOCRIT 41.4 % (36.0-47.0); HEMOGLOBIN 13.1 g/dl (12.0-15.5); MEAN CORPUSCULAR HEMOGLOBIN 26.9 pg (27.0-33.0); MEAN CORPUSCULAR HGB CONC 31.6 g/dl (32.0-36.5); PLATELET COUNT, AUTOMATED 385 10^3/uL (150-450); RED BLOOD COUNT 4.87 10^6/uL (4.00-5.40)
[2018-09-23 19:37] LABS: AMPHETAMINES LEVEL URINE NEGATIVE (NEGATIVE); BARBITURATES URINE NEGATIVE (NEGATIVE); BENZODIAZEPINES URINE NEGATIVE (NEGATIVE); CANNABINOIDS URINE NEGATIVE (NEGATIVE); COCAINE METABOLITE URINE NEGATIVE (NEGATIVE); METHADONE URINE NEGATIVE (NEGATIVE); OPIATES URINE NEGATIVE (NEGATIVE); PHENCYCLIDINE URINE NEGATIVE (NEGATIVE)
[2018-09-23 19:49] LABS: ALBUMIN 3.5 GM/DL (3.2-5.2); ALT/SGPT 28 U/L (12-78); BILIRUBIN,DIRECT 0.2 MG/DL (0.0-0.2); BILIRUBIN,TOTAL 0.3 MG/DL (0.2-1.0); BLOOD UREA NITROGEN 11 MG/DL (7-18); CALCIUM LEVEL 9.1 MG/DL (8.5-10.1); CARBON DIOXIDE LEVEL 25 MEQ/L (21-32); CHLORIDE LEVEL 106 MEQ/L (98-107); GLOMERULAR FILTRATION RATE > 60.0 (>60); GLUCOSE, FASTING 141 MG/DL (70-100); POTASSIUM SERUM 3.7 MEQ/L (3.5-5.1); SALICYLATE LEVEL < 1.7 MG/DL (5.0-30.0); SODIUM LEVEL 142 MEQ/L (136-145); TOTAL PROTEIN 7.7 GM/DL (6.4-8.2)
[2018-09-23 19:50] LABS: ACETAMINOPHEN LEVEL < 2.0 UG/ML (10.0-30.0); ETHYL ALCOHOL (ETHANOL) < 0.003 % (0.000-0.010)
[2018-09-23] MEDS ORDERED: ACETAMINOPHEN TAB 650MG DOSE (2X325MG) PO ONE (21:15)
[2018-09-23] MEDS ORDERED: ACETAMINOPHEN 325 MG TAB As Ordered ONE (21:15)
[2018-09-23] MEDS ORDERED: LORazepam 0.5 MG TAB PO STA (22:37)
[2018-09-23] MEDS ORDERED: ARIPiprazole 10 MG TAB PO ONE (22:45)
[2018-09-23] MEDS ORDERED: DOCUSATE SODIUM 100 MG CAP PO ONE (22:45)
[2018-09-23] MEDS ORDERED: traZODone 50 MG TAB PO ONE (22:45)
[2018-09-23] MEDS ORDERED: FLUoxetine 20 MG CAP PO ONE (22:45)
[2018-09-23] MEDS ORDERED: guanFACINE 1 MG TAB PO ONE (22:45)
[2018-09-23] MEDS ORDERED: metFORMIN (GLUCOPHAGE) 1000 MG TABLET PO ONE (22:45)
[2018-09-23] MEDS ORDERED: SIMVASTATIN 40 MG TAB PO ONE (22:45)
[2018-09-23] MEDS ORDERED: LEVEMIR (INSULIN DETEMIR) 1 UNITS/0.01ML SC ONE (22:45)
[2018-09-23 23:04] VITALS: BP 106/68
[2018-09-24] MEDS ORDERED: HYDR50TA70 PO (08:21)
[2018-09-24] MEDS ORDERED: LORA0.5T11 PO (08:21)
[2018-09-24] MEDS ORDERED: ACET-907 PO (08:21)
[2018-09-24] MEDS ORDERED: METF-882 PO (08:32)
[2018-09-24] MEDS ORDERED: DOCUSATE SODIUM 100 MG CAP PO ONE (08:45)
[2018-09-24] MEDS ORDERED: metFORMIN XR 500MG TAB *GLUCOPHAGE XR PO ONE (08:45)
[2018-09-24] MEDS: HumaLOG INSULIN (NovoLOG) PER UNIT SC SCH ×4 (08:51→21:00)
[2018-09-24] MEDS ORDERED: FARXIGA 10 MG PO ONE (09:00)
[2018-09-24] MEDS ORDERED: ETHINYL ESTRADIOL PO ONE (09:00)
[2018-09-24] MEDS ORDERED: LEVONORGESTREL PO ONE (09:00)
[2018-09-24] MEDS ORDERED: LORazepam 0.5 MG TAB PO ONE (11:30)
[2018-09-24] MEDS ORDERED: ACETAMINOPHEN TAB 650MG DOSE (2X325MG) PO PRN (12:45)
[2018-09-24] MEDS ORDERED: traZODone 50 MG TAB PO PRN (12:45)
[2018-09-24] MEDS ORDERED: MAALOX 30 ML SUSP *UDC PO PRN (12:45)
[2018-09-24] MEDS ORDERED: MOM 30ML SUSPENSION UDC PO ONE (12:45)
[2018-09-24 14:15] VITALS: BP 131/90
[2018-09-24] MEDS ORDERED: LORazepam 0.5 MG TAB PO PRN (14:30)
[2018-09-24] MEDS ORDERED: GLUCOSE 4 GM CHEW TABLET PO PRN (15:00)
[2018-09-24] MEDS ORDERED: GLUCAGON FOR INJ 1 MG VIAL (J1610) SC PRN (15:00)
[2018-09-24] MEDS ORDERED: DEXTROSE 50% 50 ML SYRINGE IV PRN (15:00)
--- NOTE | 2018-09-24 16:21 | MHHPEPDOC ---
General Legal Status: 9.39 Chief Complaint "22-year-old female threatened to kill herself and others at the [facility]. History of Present Illness HISTORY OF THE PRESENT ILLNESS: Patient is a 23 -year-old , tania francisco, who threatened to kill herself and others at [facility]. Patient states I haven't been myself lately. She states she is "very often" and grumpy and targeting people for the last couple of weeks. She states her sleep has been on and off but her appetite has been okay. She suffers from diabetes. She has had numerous psychiatric hospitalizations and then at [place] [address] [facility],once. She is unable to count the number of times. She has been at [facility]. She states her surgical history is negative. Her neurological history is negative. Her drug use. History is negative. Her alcohol history is negative. Her legal history is negative. She states she has been treated at [facility] by "maribel". She states her medication is given to her by Sonu Gregorio. She states she has not been hospitalized in a while. She states this Monday. She has a meeting at [facility] with her mother. Staff. She states she did not really mean to kill herself. He denies hallucinations, delusions, obsessions, compulsions and phobias. She states there is no psychiatric history in the family. Psychiatric Review of Systems Depression (2 or more weeks): depressed mood, anhedonia, suicidal thoughts Ruma (4 or more days of): irritable/elevated mood Psychosis: denies PTSD: denies Anxiety: situational anxiety Anxiety/ 6 months or more of: restlessness, keyed up, irritability, personality cluster A,BC Past Psychiatric History Previous Psychiatric Diagnosis: Conduct disorder Previous Psychiatric Admissions:, Numerous and frequent. Suicide Attempts: Numerous. Psychiatric Follow-up: Presently outpatient at [facility]. Psychiatric medications: Numerous. Past Medical History Medical Problems Diabetes Head Injury: No Seizures: No Hospitalizations: Yes Family Medical/Psychiatric HX Psychiatric Disorders: No Addiction: No Suicide Attemps/Completions: No Addiction History denies Social History Childhood: . Abuse/Trauma:. Current Living Situation: [facility] Education: High school. Employment:, None. Social Support: [facility]. Legal: None. Marital:. Negative. Mental Status Examination General Appearance: well groomed, ds/not appear stated age Build: overweight Demeanor: average Eye Contact: average Activity: average Behavior: cooperative Speech: clear Mood: euthymic Affect: full Thought Process: logical/linear Thought Content (Delusions): none reported Thought Content (Other): none reported, coherent Thought Content (Aggressive): other Perception (Hallucinations): none reported Perception (Other): none reported Cognition (Impairment of): ability to abstract Cognition(Intelligence Est.): borderline Oriented: Awake Insight: poor Judgment: Poor Psychosis: Denies Diagnoses Adjustment disorder with mixed emotions. Personality cluster. Conduct disorder by history A-FIB/CHADSVASC A-FIB History Current/History of A-Fib/PAF?: No Initial Treatment Plan 1. Patient was admitted on a [9.39] status. 2. Complete history was obtained. 3. With patients permission, family will be contacted and database will be expanded. 4. Patients medication regimen will be reviewed and changed accordingly. 5. Patient will be provided with protected environment. 6. Patient will be treated with individual, group, and milieu therapies. 7. Patient will receive supportive psych-education. 8. Discharge planning will commence immediately. 9. Outpatient follow-up treatment will be strongly recommended. 10. The initial treatment plan will focus initially on: * Depression. * Risk for suicide. * Substance abuse. ESTIMATED LENGTH OF STAY: - DAYS. TIME SPENT COUNSELING AND COORDINATING INITIAL CARE: minutes. Vital Signs Vital Signs Date Time Temp Pulse Resp B/P (MAP) Pulse Ox O2 Delivery O2 Flow Rate FiO2 09/24/18 14:15 97.6 115 16 131/90 (104) 97 09/24/18 13:58 Room Air Laboratory Data 24H Labs Laboratory Tests 2 09/23/18 18:35: Urine Amphetamines Screen NEGATIVE, Urine Benzodiazepines Screen NEGATIVE, Urine Opiates Screen NEGATIVE, Urine Methadone Screen NEGATIVE, Urine Barbiturates Screen NEGATIVE, Urine Phencyclidine Screen NEGATIVE, Urine Cocaine Metabolite Screen NEGATIVE, Urine Cannabinoids Screen NEGATIVE 09/23/18 18:47: Nucleated Red Blood Cells % (auto) 0.0, Anion Gap 11, Glomerular Filtration Rate > 60.0, Calcium Level 9.1, Aspartate Amino Transf (AST/SGOT) 10, Alanine Aminotransferase (ALT/SGPT) 28, Alkaline Phosphatase 88, Total Bilirubin 0.3, Direct Bilirubin 0.2, Total Protein 7.7, Albumin 3.5, Albumin/Globulin Ratio 0.83L, Thyroid Stimulating Hormone (TSH) 3.170, Salicylates Level < 1.7L, Acetaminophen Level < 2.0L, Ethyl Alcohol Level < 0.003 09/24/18 08:06: Bedside Glucose (Misc Panel) 141H 09/24/18 12:40: Bedside Glucose (Misc Panel) 131H CBC/BMP Laboratory Tests 09/23/18 18:47 Red Blood Count 4.87, Mean Corpuscular Volume 85.0, Mean Corpuscular Hemoglobin 26.9 L, Mean Corpuscular Hemoglobin Concent 31.6 L, Red Cell Distribution Width 15.3 H Medications Scheduled Aripiprazole (Abilify) 10 Mg Tab, 10 MG PO QHS, (Reported) Dapagliflozin Propanediol (Farxiga) 10 Mg Tab, 10 MG PO DAILY, (Reported) Docusate Sodium (Colace) 100 Mg Cap, 100 MG PO BID, (Reported) Dulaglutide (Trulicity) 1.5 Mg/0.5 Ml Inj, 1.5 MG SC 1XWK, (Reported) TAKES ON SATURDAYS Fluoxetine HCl (Fluoxetine HCl) 20 Mg Tab, 20 MG PO QHS, (Reported) Guanfacine HCl (Intuniv) 3 Mg Tab.er.24h, 3 MG PO QHS, (Reported) Insulin Aspart (Novolog) 100 Unit/1 Ml Cartridge, 1 DOSE SC ACHS, (Reported) PER SLIDING SCALE Insulin Glargine,Hum.rec.anlog (Lantus Solostar) 100 Unit/1 Ml Insuln.pen, 38 UNITS SC QHS, (Reported) Levonorgestrel-Ethin Estradiol (Levonor-Eth Estrad 0.15-0.03) 1 Each Tbdspk.3mo, 1 TAB PO DAILY, (Reported) Metformin HCl (Metformin ER Osmotic) 1,000 Mg Tab.er.24, 1,000 MG PO BID, (Reported) Simvastatin (Zocor) 40 Mg Tab, 40 MG PO QHS, (Reported) Trazodone HCl (Trazodone HCl) 50 Mg Tab, 50 MG PO QHS, (Reported) Scheduled PRN Acetaminophen (Tylenol) 325 Mg Tablet, 650 MG PO QID PRN for PAIN, (Reported) Dextrose (Glucose) 4 Gm Chw, 16 GM PO for LOW BLOOD SUGAR, (Reported) Hydroxyzine HCl (Hydroxyzine HCl) 50 Mg Tablet, 50 MG PO Q6H PRN for ANXIETY/AGITATION, (Reported) Lorazepam (Lorazepam) 0.5 Mg Tablet, 0.5 MG PO BID PRN for ANXIETY, (Reported) Allergies Coded Allergies: milk (Verified Allergy, Unknown, 09/23/18) topiramate (Verified Adverse Reaction, Unknown, hallucinations, 09/23/18) CAMPOS BAILEY MD Sep 24, 2018 16:21
[2018-09-24 18:00] VITALS: BP 114/68
[2018-09-24] MEDS: metFORMIN XR 500MG TAB *GLUCOPHAGE XR PO SCH (18:10)
[2018-09-24] MEDS: traZODone 50 MG TAB PO SCH (20:47)
[2018-09-24] MEDS: FLUoxetine 20 MG CAP PO SCH (20:47)
[2018-09-24] MEDS: DOCUSATE SODIUM 100 MG CAP PO SCH (20:47)
[2018-09-24] MEDS: ARIPiprazole 10 MG TAB PO SCH (20:47)
[2018-09-24] MEDS: GUANFACINE HCL 3 MG PO SCH (20:47)
[2018-09-24] MEDS: LEVEMIR (INSULIN DETEMIR) 1 UNITS/0.01ML SC SCH (20:48)
[2018-09-24] MEDS: SIMVASTATIN 40 MG TAB PO SCH (20:49)
[2018-09-24] MEDS ORDERED: guanFACINE 1 MG TAB PO SCH (21:00)
[2018-09-25 06:39] VITALS: BP 126/70
[2018-09-25] MEDS: HumaLOG INSULIN (NovoLOG) PER UNIT SC SCH ×4 (06:44→20:43)
[2018-09-25] MEDS: metFORMIN XR 500MG TAB *GLUCOPHAGE XR PO SCH ×2 (07:41→20:42)
[2018-09-25] MEDS: DAPAGLIFLOZIN 10 MG PO SCH (08:35)
[2018-09-25] MEDS: LEVONORGESTREL ETHIN ESTRADIOL PO SCH (08:35)
[2018-09-25] MEDS: DOCUSATE SODIUM 100 MG CAP PO SCH ×2 (08:36→20:46)
--- NOTE | 2018-09-25 10:30 | MHIPNPDOC ---
[facility] Progress Note Progress Note DATE OF SERVICE: 09/25/18 HISTORY: Numerous admissions of this 23-year-old female for similar reasons of outbursts at [facility]. VITAL SIGNS: See below. NEW TEST RESULTS: None. CURRENT MEDICATIONS: See below. MENTAL STATUS EXAMINATION: Patient is a 23-year old female, who is, frequently admitted for outbursts at [facility] accompanied by suicidal and homicidal threats. Speech: Is. Normal. Language skills are intact. Thought processes including:. No gross disturbance. Thought content:. No gross disturbance. Abstract reasoning, and computation: Minimal. Description of associations:. No loose associations. Description of abnormal or psychotic thoughts:. No psychotic thought noted. Judgment:. Poor. Insight: Poor. Orientation: Intact 3. Recent and remote memory:. No disturbance of recent or remote memory. Attention span and concentration: Intact. Language:. As above. Fund of knowledge:, Intact. Mood:, Pleasant. Affect:, Congruent. DIAGNOSES: 1. 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 3. Stressors of living situation. ASSESSMENT:. Patient states she may be finding temporary living and further information will be gathered MANAGEMENT PLAN: As above. TIME SPENT: 35 minutes. Vital Signs Vital Signs Date Time Temp Pulse Resp B/P (MAP) Pulse Ox O2 Delivery O2 Flow Rate FiO2 09/25/18 06:39 98.4 97 14 126/70 (88) 09/24/18 14:15 97 09/24/18 13:58 Room Air Laboratory Data 24H Labs Laboratory Tests 2 09/24/18 12:40: Bedside Glucose (Misc Panel) 131H 09/24/18 17:07: Bedside Glucose (Misc Panel) 114H 09/24/18 20:42: Bedside Glucose (Misc Panel) 111H 09/25/18 06:18: Bedside Glucose (Misc Panel) 124H Current Medications Current Medications Acetaminophen (Tylenol Tab) 650 mg Q6HP PRN PO HEADACHE or DISCOMFORT; Start 09/24/18 at 12:45 Al Hydrox/Mg Hydrox/Simethicone (Mylanta) 30 ml Q4HP PRN PO HEARTBURN/INDIGESTION; Start 09/24/18 at 12:45 Aripiprazole (AbiLIFY) 10 mg QHS PO Last administered on 09/24/18at 20:47; Start 09/24/18 at 21:00 Dextrose (Dextrose 50%) 25 ml ASDIRECTED PRN IV SEE LABEL COMMENTS; Start 09/24/18 at 15:00 Docusate Sodium (Colace) 100 mg BID PO Last administered on 09/25/18at 08:36; Start 09/24/18 at 21:00 Fluoxetine HCl (PROzac) 20 mg QHS PO Last administered on 09/24/18at 20:47; Start 09/24/18 at 21:00 Glucagon (Glucagon) 1 mg ASDIRECTED PRN SC SEE LABEL COMMENTS; Start 09/24/18 at 15:00 Glucose (Glucose) 16 GM ASDIRECTED PRN PO SEE LABEL COMMENTS; Start 09/24/18 at 15:00 Guanfacine HCl (Tenex) 3 mg QHS PO ; Start 09/24/18 at 21:00; Status UNV Home Med (Med Rec Complete!) ASDIRECTED XX ; Start 09/24/18 at 08:45; Stop 09/24/18 at 08:45; Status DC Hydroxyzine HCl (Atarax) 50 mg Q6HP PRN PO ANXIETY/AGITATION; Start 09/24/18 at 14:30 Insulin Detemir (Levemir Insulin) 38 units QHS SC Last administered on 09/24/18at 20:48; Start 09/24/18 at 21:00 Insulin Human Lispro (HumaLOG INSULIN) SEE PROTOCOL TABLE AC SC Last administered on 09/24/18at 12:46; Start 09/24/18 at 07:30; Stop 09/24/18 at 13:00; Status DC Insulin Human Lispro (HumaLOG INSULIN) See Protocol Table AC SC Last administered on 09/25/18at 06:44; Start 09/24/18 at 17:30 Insulin Human Lispro (HumaLOG INSULIN) See Protocol Table QHS SC ; Start 09/24/18 at 21:00 Lorazepam (Ativan) 0.5 mg BIDP PRN PO ANXIETY; Start 09/24/18 at 14:30 Lorazepam (Ativan) 0.5 mg STAT STAT PO Last administered on 09/23/18at 23:03; Start 09/23/18 at 22:37; Stop 09/23/18 at 22:41; Status DC Metformin HCl (Glucophage Xr) 1,000 mg DAILY@0800 PO Last administered on 09/25/18 07:41; Start 09/25/18 at 08:00 Metformin HCl (Glucophage Xr) 1,000 mg DAILY@18 PO Last administered on 09/24/18 18:10; Start 09/24/18 at 18:00 Patient Own Medication (Patient'S Own Med) GUANFACINE HCL ER 3MG TABL... QHS PO Last administered on 09/24/18 20:47; Start 09/24/18 at 21:00 Patient Own Medication (Patient'S Own Med) Levonorgestrel-Ethin Estradiol 1 Tab PO ONCE DAILY DAILY PO Last administered on 09/25/18 08:35; Start 09/25/18 at 09:00 Patient Own Medication (Patient'S Own Med) TAKE ONE TABLET BY MOUTH O... DAILY PO Last administered on 09/25/18 08:35; Start 09/25/18 at 09:00; Stop 10/13/18 at 08:59 Simvastatin (Zocor) 40 mg QHS PO Last administered on 09/24/18 20:49; Start 09/24/18 at 21:00 Trazodone HCl (Desyrel) 50 mg QHS PO Last administered on 09/24/18 20:47; Start 09/24/18 at 21:00; Stop 10/14/18 at 21:00 Trazodone HCl (Desyrel) 50 mg QHSP PRN PO INSOMNIA; Start 09/24/18 at 12:45; Stop 09/24/18 at 14:55; Status DC Allergies Coded Allergies: milk (Verified Allergy, Unknown, 09/23/18) topiramate (Verified Adverse Reaction, Unknown, hallucinations, 09/23/18) CAMPOS BAILEY MD Sep 25, 2018 10:30
[2018-09-25] MEDS: hydrOXYzine 50 MG TAB PO PRN (16:03)
[2018-09-25 18:00] VITALS: BP 136/82
[2018-09-25] MEDS: LEVEMIR (INSULIN DETEMIR) 1 UNITS/0.01ML SC SCH (20:42)
[2018-09-25] MEDS: traZODone 50 MG TAB PO SCH (20:46)
[2018-09-25] MEDS: SIMVASTATIN 40 MG TAB PO SCH (20:46)
[2018-09-25] MEDS: ARIPiprazole 10 MG TAB PO SCH (20:46)
[2018-09-25] MEDS: GUANFACINE HCL 3 MG PO SCH (20:46)
[2018-09-25] MEDS: FLUoxetine 20 MG CAP PO SCH (20:46)
--- NOTE | 2018-09-25 21:19 | CR ---
DATE OF CONSULTATION: 09/25/2018 REASON FOR CONSULTATION: Medical management. HISTORY OF PRESENT ILLNESS: The patient is a 23-year-old -[place] female with a history of depression, schizophrenia. She was admitted to the psychiatric unit for depression. She has suicidal ideation and medicine service was called for consultation. She denies any symptoms. Per the nursing staff, she refused to eat. She denies fever, chills. No chest pain. No abdominal pain. No diarrhea. No focal weakness. REVIEW OF SYSTEMS: No fever. No chills. No headache. No blurred vision. No shortness of breath. No chest pain. No abdominal pain. No tingling, numbness, weakness in the arms or lower extremities. All other systems reviewed but negative. PAST MEDICAL HISTORY: 1. Bipolar disorder. 2. Schizophrenia. 3. Depression. 4. Attention deficit hyperactivity disorder (ADHD). 5. Type 1 diabetes. 6. Developmental delay. PAST SURGICAL HISTORY: Tonsillectomy. SOCIAL HISTORY: No alcohol abuse. No illicit drug abuse. No smoking. She is a resident of [facility] ([facility]) . FAMILY HISTORY: She is adopted and is unaware of the family. MEDICATIONS: Reviewed. PHYSICAL EXAMINATION: VITAL SIGNS: Temperature 97.9, heart rate 98, respiratory rate 18, blood pressure 136/82. GENERAL: She is awake, alert, oriented times three. She is not in acute distress but she looks depressed. She is not talking, but she does follow simple commands. HEENT: Atraumatic. Pupils are equal, round and reactive to light. No jaundice. Extraocular muscles intact. Ears, nose and throat normal. Oral mucosa not dry. NECK: No jugular venous distention (JVD) or bruits. LUNGS: Clear. No wheezing or crackles. HEART: S1, S2. Regular. No murmur. ABDOMEN: Soft, positive bowel sounds. Nontender. LOWER EXTREMITIES: No edema in bilateral lower extremities. NEUROLOGIC: Nonfocal. SKIN: No rash. PSYCHOLOGICAL: No acute psychosis. Depressed. IMPRESSION: 1. Depression with suicidal ideation. 2. Type 1 diabetes. RECOMMENDATIONS: Since the patient is refusing to eat at this moment, we will hold her diabetic medications. Meanwhile, we will do Accu-Chek every 6 hours with insulin sliding scale. When the patient restarts eating, we will go back to the Accu-Chek before meals with sliding scale and also we will resume her long- acting insulin. JC
[2018-09-26 06:46] VITALS: BP 134/65
[2018-09-26] MEDS: HumaLOG INSULIN (NovoLOG) PER UNIT SC SCH ×4 (07:43→21:00)
[2018-09-26] MEDS: metFORMIN XR 500MG TAB *GLUCOPHAGE XR PO SCH ×2 (07:53→17:50)
[2018-09-26] MEDS: DOCUSATE SODIUM 100 MG CAP PO SCH ×2 (08:01→21:22)
[2018-09-26] MEDS: LEVONORGESTREL ETHIN ESTRADIOL PO SCH (08:02)
[2018-09-26] MEDS: DAPAGLIFLOZIN 10 MG PO SCH (08:02)
--- NOTE | 2018-09-26 09:28 | MHIPNPDOC ---
[facility] Progress Note Progress Note DATE OF SERVICE: 09/26/18 HISTORY: 23-year-old female living at [facility] with frequent outbursts requiring repeated admissions. VITAL SIGNS: See below. NEW TEST RESULTS: None. CURRENT MEDICATIONS: See below. 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 Speech: Is normal. Language skills are, intact. Thought processes including:. No gross abnormalities. Thought content:. No gross abnormalities. Abstract reasoning, and computation:, Poor. Abstraction. Description of associations: No loose association. Description of abnormal or psychotic thoughts:. No psychotic thought noted. Judgment: Poor. Insight:, Poor. Orientation:, Intact 3. Recent and remote memory:. Intact. Attention span and concentration:. Fair. Language:, As above. Fund of knowledge:, Intact. Mood:, Cheerful. Affect:, Congruent. DIAGNOSES: 1. Cyclothymia. 2. Intellectual functioning deficit. 3. Stressors of living situation. ASSESSMENT: As above MANAGEMENT PLAN: Plan to return to [facility] with prognosis of repeated admissions. TIME SPENT: 35 minutes. Vital Signs Vital Signs Date Time Temp Pulse Resp B/P (MAP) Pulse Ox O2 Delivery O2 Flow Rate FiO2 09/26/18 06:46 97.4 90 16 134/65 (88) 09/24/18 14:15 97 09/24/18 13:58 Room Air Laboratory Data 24H Labs Laboratory Tests 2 09/25/18 11:22: Bedside Glucose (Misc Panel) 120H 09/25/18 16:56: Bedside Glucose (Misc Panel) 111H 09/25/18 20:40: Bedside Glucose (Misc Panel) 153H 09/26/18 06:06: Bedside Glucose (Misc Panel) 109H Current Medications Current Medications Acetaminophen (Tylenol Tab) 650 mg Q6HP PRN PO HEADACHE or DISCOMFORT; Start 09/24/18 at 12:45 Al Hydrox/Mg Hydrox/Simethicone (Mylanta) 30 ml Q4HP PRN PO HEARTBURN/INDIGESTION; Start 09/24/18 at 12:45 Aripiprazole (AbiLIFY) 10 mg QHS PO Last administered on 09/25/18at 20:46; Start 09/24/18 at 21:00 Dextrose (Dextrose 50%) 25 ml ASDIRECTED PRN IV SEE LABEL COMMENTS; Start 09/24/18 at 15:00 Docusate Sodium (Colace) 100 mg BID PO Last administered on 09/26/18at 08:01; Start 09/24/18 at 21:00 Fluoxetine HCl (PROzac) 20 mg QHS PO Last administered on 09/25/18at 20:46; Start 09/24/18 at 21:00 Glucagon (Glucagon) 1 mg ASDIRECTED PRN SC SEE LABEL COMMENTS; Start 09/24/18 at 15:00 Glucose (Glucose) 16 GM ASDIRECTED PRN PO SEE LABEL COMMENTS; Start 09/24/18 at 15:00 Guanfacine HCl (Tenex) 3 mg QHS PO ; Start 09/24/18 at 21:00; Status UNV Home Med (Med Rec Complete!) ASDIRECTED XX ; Start 09/24/18 at 08:45; Stop 09/24/18 at 08:45; Status DC Hydroxyzine HCl (Atarax) 50 mg Q6HP PRN PO ANXIETY/AGITATION Last administered on 09/25/18at 16:03; Start 09/24/18 at 14:30 Insulin Detemir (Levemir Insulin) 38 units QHS SC Last administered on 09/24/18at 20:48; Start 09/24/18 at 21:00 Insulin Human Lispro (HumaLOG INSULIN) SEE PROTOCOL TABLE AC SC Last administered on 09/24/18at 12:46; Start 09/24/18 at 07:30; Stop 09/24/18 at 13:00; Status DC Insulin Human Lispro (HumaLOG INSULIN) See Protocol Table AC SC Last administered on 09/26/18at 07:43; Start 09/24/18 at 17:30 Insulin Human Lispro (HumaLOG INSULIN) See Protocol Table QHS SC ; Start 09/24/18 at 21:00 Lorazepam (Ativan) 0.5 mg BIDP PRN PO ANXIETY; Start 09/24/18 at 14:30 Lorazepam (Ativan) 0.5 mg STAT STAT PO Last administered on 09/23/18at 23:03; Start 09/23/18 at 22:37; Stop 09/23/18 at 22:41; Status DC Metformin HCl (Glucophage Xr) 1,000 mg DAILY@0800 PO Last administered on 09/26/18 07:53; Start 09/25/18 at 08:00 Metformin HCl (Glucophage Xr) 1,000 mg DAILY@18 PO Last administered on 09/24/18 18:10; Start 09/24/18 at 18:00 Patient Own Medication (Patient'S Own Med) GUANFACINE HCL ER 3MG TABL... QHS PO Last administered on 09/25/18 20:46; Start 09/24/18 at 21:00 Patient Own Medication (Patient'S Own Med) Levonorgestrel-Ethin Estradiol 1 Tab PO ONCE DAILY DAILY PO Last administered on 09/26/18 08:02; Start 09/25/18 at 09:00 Patient Own Medication (Patient'S Own Med) TAKE ONE TABLET BY MOUTH O... DAILY PO Last administered on 09/26/18 08:02; Start 09/25/18 at 09:00; Stop 10/13/18 at 08:59 Simvastatin (Zocor) 40 mg QHS PO Last administered on 09/25/18 20:46; Start 09/24/18 at 21:00 Trazodone HCl (Desyrel) 50 mg QHS PO Last administered on 09/25/18 20:46; Start 09/24/18 at 21:00; Stop 10/14/18 at 21:00 Trazodone HCl (Desyrel) 50 mg QHSP PRN PO INSOMNIA; Start 09/24/18 at 12:45; Stop 09/24/18 at 14:55; Status DC Allergies Coded Allergies: milk (Verified Allergy, Unknown, 09/23/18) topiramate (Verified Adverse Reaction, Unknown, hallucinations, 09/23/18) CAMPOS BAILEY MD Sep 26, 2018 09:28
[2018-09-26] MEDS: hydrOXYzine 50 MG TAB PO PRN ×2 (12:24→21:22)
[2018-09-26 18:00] VITALS: BP 115/83
[2018-09-26] MEDS: ARIPiprazole 10 MG TAB PO SCH (21:22)
[2018-09-26] MEDS: GUANFACINE HCL 3 MG PO SCH (21:22)
[2018-09-26] MEDS: SIMVASTATIN 40 MG TAB PO SCH (21:22)
[2018-09-26] MEDS: traZODone 50 MG TAB PO SCH (21:22)
[2018-09-26] MEDS: FLUoxetine 20 MG CAP PO SCH (21:23)
[2018-09-26] MEDS: LEVEMIR (INSULIN DETEMIR) 1 UNITS/0.01ML SC SCH (21:39)
[2018-09-27] MEDS: HumaLOG INSULIN (NovoLOG) PER UNIT SC SCH ×2 (07:11→11:56)
[2018-09-27 07:14] VITALS: BP 135/81
--- NOTE | 2018-09-27 08:21 | MHDSPDOC ---
[facility] Discharge Summary Discharge Summary DATE OF ADMISSION: Sep 24, 2018 at 12:44 DATE OF DISCHARGE: September DISCHARGE DIAGNOSES: 1. Cyclothymia 2. Borderline intellectual functioning. REASON FOR ADMISSION: Repetitive admissions for aggression homicidal and suicidal statements CONSULTANTS INVOLVED: None TREATMENT AND PROGRESS ON THE UNIT :. Patient immediately asked for discharge. She demonstrated no behavioral problems on the unit and soon denied homicidal or suicidal ideation. HOSPITAL COURSE:. As above DISCHARGE ASSESSMENT: Repetitive admissions for this 23-year-old female who re portedly becomes explosive making homicidal and suicidal statements whenever she is denied Her wishes. There is some persecutory feelings concerning racism and her insight and ability to abstract contribute to this MENTAL STATUS EXAMINATION ON DISCHARGE: Patient is a 23-year old female, who is being discharged back to her [facility] living situation. Speech is. No gross disturbance. Language skills are as above. Thought processes including:. Some persecutory thoughts but not psychotic. Thought content:, Focused on discharge. Abstract reasoning, and computation:. Poor. Abstraction. Description of associations: No loose associations. Description of abnormal or psychotic thoughts:. No psychotic thought noted. Judgment:. Poor. Insight: Poor. Orientation to, intact 3. Recent and remote memory:. Intact. Attention span and concentration: Fair. Language:, As above. Fund of knowledge:, Limited. Mood:. Good. Affect:. Pleasant. MEDICATIONS ON DISCHARGE: -No change in home medications for diabetes management. -. No change in home medications for. Mood. PLAN/FOLLOWUP ARRANGEMENTS: Return to [facility] with continued follow-up. The amount of time spent in the coordination of care for this patient was approximately 35 minutes. Vital Signs/I&Os Vital Signs Date Time Temp Pulse Resp B/P (MAP) Pulse Ox O2 Delivery O2 Flow Rate FiO2 09/27/18 07:14 98.4 74 14 135/81 (99) 09/24/18 14:15 97 09/24/18 13:58 Room Air Laboratory Data Labs 24H Laboratory Tests 2 09/26/18 11:39: Bedside Glucose (Misc Panel) 110H 09/26/18 17:11: Bedside Glucose (Misc Panel) 152H 09/26/18 21:11: Bedside Glucose (Misc Panel) 106H 09/27/18 06:04: Bedside Glucose (Misc Panel) 135H Medications Scheduled Aripiprazole (Abilify) 10 Mg Tab, 10 MG PO QHS, (Reported) Dapagliflozin Propanediol (Farxiga) 10 Mg Tab, 10 MG PO DAILY, (Reported) Docusate Sodium (Colace) 100 Mg Cap, 100 MG PO BID, (Reported) Dulaglutide (Trulicity) 1.5 Mg/0.5 Ml Inj, 1.5 MG SC 1XWK, (Reported) TAKES ON SATURDAYS Fluoxetine HCl (Fluoxetine HCl) 20 Mg Tab, 20 MG PO QHS, (Reported) Guanfacine HCl (Intuniv) 3 Mg Tab.er.24h, 3 MG PO QHS, (Reported) Insulin Aspart (Novolog) 100 Unit/1 Ml Cartridge, 1 DOSE SC ACHS, (Reported) PER SLIDING SCALE Insulin Glargine,Hum.rec.anlog (Lantus Solostar) 100 Unit/1 Ml Insuln.pen, 38 UNITS SC QHS, (Reported) Levonorgestrel-Ethin Estradiol (Levonor-Eth Estrad 0.15-0.03) 1 Each Tbdspk.3mo, 1 TAB PO DAILY, (Reported) Metformin HCl (Metformin ER Osmotic) 1,000 Mg Tab.er.24, 1,000 MG PO BID, (Reported) Simvastatin (Zocor) 40 Mg Tab, 40 MG PO QHS, (Reported) Trazodone HCl (Trazodone HCl) 50 Mg Tab, 50 MG PO QHS, (Reported) Scheduled PRN Dextrose (Glucose) 4 Gm Chw, 16 GM PO for LOW BLOOD SUGAR, (Reported) Hydroxyzine HCl (Hydroxyzine HCl) 50 Mg Tablet, 50 MG PO Q6H PRN for ANXIETY/AGITATION, (Reported) Allergies Coded Allergies: milk (Verified Allergy, Unknown, 09/23/18) topiramate (Verified Adverse Reaction, Unknown, hallucinations, 09/23/18) CAMPOS BAILEY MD Sep 27, 2018 08:21
[2018-09-27] MEDS: metFORMIN XR 500MG TAB *GLUCOPHAGE XR PO SCH (09:01)
[2018-09-27] MEDS: DAPAGLIFLOZIN 10 MG PO SCH (09:06)
[2018-09-27] MEDS: DOCUSATE SODIUM 100 MG CAP PO SCH (09:08)
[2018-09-27] MEDS: LEVONORGESTREL ETHIN ESTRADIOL PO SCH (09:09)
[2018-09-27] MEDS: hydrOXYzine 50 MG TAB PO PRN (12:16)
== END 2018-09-27 13:19 | disposition home or self-care (01) | DRG 753 ==
LOC: M ED 18:19 → M ED INP 09-24 12:44 → M PSY 09-24 14:11
PROVIDERS: ADMIT Psychiatry & Neurology Psychiatry; ATTEND Psychiatry & Neurology Child & Adolescent Psychiatry
DX: F34.0 Cyclothymic disorder (principal); R45.850 Homicidal ideations; R45.851 Suicidal ideations; F79 Unspecified intellectual disabilities; E10.9 Type 1 diabetes mellitus without complications; Z79.899 Other long term (current) drug therapy; Z88.8 Allergy status to other drugs, medicaments and biological substances; Z91.011 Allergy to milk products; F90.9 Attention-deficit hyperactivity disorder, unspecified type

== ENCOUNTER → 2018-10-17 | Outpatient (REF) | payer BC, MEDICAID ==
[~2018-10-17] MED LIST changes: +ACET-907 PO; +HYDR50TA70 PO; +LANTINJ4 SC; +LEVOTAB18 PO; +LORA0.5T11 PO; +METF-882 PO; +NOVOINJ SC
[2018-10-17 11:46] LABS: HCG, SERUM QUALITATIVE NEGATIVE (NEGATIVE)
== END ==
LOC: M LAB REF 11:13
PROVIDERS: ATTEND Nurse Practitioner Family
DX: N91.2 Amenorrhea, unspecified (principal)

== ENCOUNTER → 2018-11-08 | Outpatient (REF) | payer BC, MEDICAID ==
[2018-11-08 19:25] LABS: HCG, SERUM QUALITATIVE NEGATIVE (NEGATIVE)
== END ==
LOC: M LAB REF 17:09
PROVIDERS: ATTEND Nurse Practitioner Family
DX: N91.2 Amenorrhea, unspecified (principal)

== ENCOUNTER → 2018-12-07 | Outpatient (REF) | payer BC, MEDICAID ==
[~2018-12-07] MED LIST changes: +HYDR1TAB33 PO; -HYDRO50TAB PO
[2018-12-07 14:46] LABS: CHLAMYDIA DNA AMPLIFICATION NEGATIVE (NEGATIVE); GC DNA AMPLIFICATION NEGATIVE (NEGATIVE)
== END ==
LOC: M SFHCWAGY 09:35
PROVIDERS: ATTEND Nurse Practitioner Family
DX: Z12.4 Encounter for screening for malignant neoplasm of cervix (principal)
CPT/HCPCS: 87491; 87591; G0123

== ENCOUNTER → 2019-07-29 | Outpatient (REF) | payer BC, MEDICAID ==
[~2019-07-29] MED LIST changes: +FLUO10CA15 PO; -FLUO10CA8 PO; -LORA0.5T11 PO; +LORA0.5T5 PO
== END ==
LOC: M LAB REF 16:24
PROVIDERS: ATTEND Nurse Practitioner Family
DX: N76.0 Acute vaginitis (principal)

== ENCOUNTER → 2020-01-27 | Outpatient (CLI) | payer BC, MEDICAID ==
[~2020-01-27] MED LIST changes: -FLUO10CA15 PO; +FLUO10CA16 PO
[2020-01-27 09:01] LABS: BASO % 0.3 % (0.0-1.0); EOS # 0.1 10^3/uL (0.0-0.5); EOS % 0.7 % (0.0-3.0); HEMATOCRIT 40.2 % (36.0-47.0); HEMOGLOBIN 12.6 g/dl (12.0-15.5); LYMPH # 2.3 10^3/uL (1.5-5.0); LYMPH % 33.8 % (24.0-44.0); MEAN CORPUSCULAR HGB CONC 31.3 g/dl (32.0-36.5); MEAN CORPUSCULAR VOLUME 86.3 fl (80.0-96.0); MONO # 0.4 10^3/uL (0.0-0.8); MONO % 5.8 % (0.0-5.0); NEUTROPHILS # 3.9 10^3/uL (1.5-8.5); NEUTROPHILS % 59.1 % (36.0-66.0); PLATELET COUNT, AUTOMATED 359 10^3/uL (150-450); RED BLOOD COUNT 4.66 10^6/uL (4.00-5.40); WHITE BLOOD COUNT 6.7 10^3/uL (4.0-10.0)
[2020-01-27 09:10] LABS: APPEARANCE, URINE HAZY (CLEAR); BACTERIA, URINE AUTO 2+ (NEGATIVE); BILIRUBIN, URINE AUTO NEGATIVE (NEGATIVE); BLOOD, URINE BLOOD NEGATIVE (NEGATIVE); COLOR, URINE YELLOW (YELLOW); GLUCOSE, URINE (UA) AUTO 3+ mg/dL (NEGATIVE); KETONE, URINE AUTO NEGATIVE (NEGATIVE); LEUKOCYTE ESTERASE, URINE AUTO NEGATIVE (NEGATIVE); MUCUS, URINE SMALL (NEGATIVE); NITRITE, URINE AUTO NEGATIVE (NEGATIVE); PROTEIN, URINE AUTO NEGATIVE (NEGATIVE); RBC, URINE AUTO 2 /HPF (0-3); SPECIFIC GRAVITY URINE AUTO 1.033 (1.002-1.035); SQUAMOUS EPITHELIAL CELL UR AU 3 /HPF (0-6); UROBILINOGEN, URINE AUTO 0.2 mg/dL (0.0-2.0); WBC, URINE AUTO 4 /HPF (0-3)
[2020-01-27 09:35] LABS: ALBUMIN 2.9 GM/DL (3.2-5.2); ALT/SGPT 19 U/L (12-78); BILIRUBIN,TOTAL 0.3 MG/DL (0.2-1.0); BLOOD UREA NITROGEN 11 MG/DL (7-18); CALCIUM LEVEL 8.7 MG/DL (8.5-10.1); CARBON DIOXIDE LEVEL 26 MEQ/L (21-32); CHLORIDE LEVEL 108 MEQ/L (98-107); CHOLESTEROL LEVEL 150 MG/DL (<200); CHOLESTEROL RISK RATIO 2.542 (<5); CREATININE FOR GFR 0.74 MG/DL (0.55-1.30); GLOMERULAR FILTRATION RATE > 60.0 (>60); GLUCOSE, FASTING 113 MG/DL (70-100); HDL CHOLESTEROL 59 MG/DL (>40); LDL CHOLESTEROL 76 MG/DL (<100); NON-HDL-C 91 MG/DL; POTASSIUM SERUM 4.3 MEQ/L (3.5-5.1); SODIUM LEVEL 140 MEQ/L (136-145); TOTAL PROTEIN 6.7 GM/DL (6.4-8.2); TRIGLYCERIDES LEVEL 77 MG/DL (<150)
[2020-01-27 09:35] LABS: MALB URINE SIEMENS 15.9 MG/L; MAU/CREAT RATIO 6.3 MCG/MG (0.0-30.0)
[2020-01-27 09:36] LABS: TOTAL 25(OH) VITAMIN D 23.6 NG/ML (30.0-100.0); VITAMIN B12 LEVEL 528 PG/ML (247-911)
== END ==
LOC: M LAB 07:39
PROVIDERS: ATTEND Internal Medicine Endocrinology, Diabetes & Metabolism
DX: E11.65 Type 2 diabetes mellitus with hyperglycemia (principal); E78.2 Mixed hyperlipidemia; E55.9 Vitamin D deficiency, unspecified; Z79.4 Long term (current) use of insulin

== ENCOUNTER → 2020-02-06 | Outpatient (CLI) | payer MEDICAID ==
[2020-02-06 11:44] LABS: HEMOGLOBIN A1c 6.7 %
== END ==
LOC: M WUC 10:36
PROVIDERS: ATTEND Physician Assistant
DX: E11.65 Type 2 diabetes mellitus with hyperglycemia (principal); Z79.4 Long term (current) use of insulin

== ENCOUNTER → 2020-05-04 | Outpatient (REF) | payer MEDICAID ==
[~2020-05-04] MED LIST changes: +QUET50TA3 PO; -QUET5TAB PO
[2020-05-04 08:31] LABS: BASO % 0.4 % (0.0-1.0); EOS # 0.1 10^3/uL (0.0-0.5); EOS % 1.1 % (0.0-3.0); HEMATOCRIT 42.1 % (36.0-47.0); LYMPH # 2.3 10^3/uL (1.5-5.0); LYMPH % 31.8 % (24.0-44.0); MEAN CORPUSCULAR HEMOGLOBIN 26.4 pg (27.0-33.0); MEAN CORPUSCULAR HGB CONC 30.9 g/dl (32.0-36.5); MEAN CORPUSCULAR VOLUME 85.4 fl (80.0-96.0); MONO # 0.5 10^3/uL (0.0-0.8); MONO % 7.6 % (0.0-5.0); NEUTROPHILS # 4.2 10^3/uL (1.5-8.5); NEUTROPHILS % 58.7 % (36.0-66.0); PLATELET COUNT, AUTOMATED 401 10^3/uL (150-450); RED BLOOD COUNT 4.93 10^6/uL (4.00-5.40); WHITE BLOOD COUNT 7.1 10^3/uL (4.0-10.0)
[2020-05-04 08:56] LABS: ALBUMIN 3.2 GM/DL (3.2-5.2); ALT/SGPT 22 U/L (12-78); BILIRUBIN,TOTAL 0.4 MG/DL (0.2-1.0); BLOOD UREA NITROGEN 8 MG/DL (7-18); CALCIUM LEVEL 9.5 MG/DL (8.5-10.1); CARBON DIOXIDE LEVEL 25 MEQ/L (21-32); CHLORIDE LEVEL 106 MEQ/L (98-107); CHOLESTEROL LEVEL 167 MG/DL (<200); GLOMERULAR FILTRATION RATE > 60.0 (>60); GLUCOSE, FASTING 163 MG/DL (70-100); HDL CHOLESTEROL 53 MG/DL (>40); LDL CHOLESTEROL 81 MG/DL (<100); NON-HDL-C 114 MG/DL; POTASSIUM SERUM 5.2 MEQ/L (3.5-5.1); SODIUM LEVEL 138 MEQ/L (136-145); TOTAL PROTEIN 7.1 GM/DL (6.4-8.2); TRIGLYCERIDES LEVEL 167 MG/DL (<150)
[2020-05-04 09:57] LABS: HEMOGLOBIN A1c 7.5 %
== END ==
LOC: M LAB 07:00 → EDSTATUS 05-08 09:18
PROVIDERS: ATTEND Physician Assistant
DX: Z79.899 Other long term (current) drug therapy (principal)

== ENCOUNTER → 2020-08-06 | Outpatient (REF) | payer BC, MEDICAID ==
[~2020-08-06] MED LIST changes: -GLUC4CHW19 PO; +SFHGLU4TA PO
[2020-08-06 19:40] LABS: HEPATITIS C VIRUS ABY INDEX < 0.0 INDEX (<0.8)
[2020-08-06 19:47] LABS: CHLAMYDIA DNA AMPLIFICATION NEGATIVE (NEGATIVE); GC DNA AMPLIFICATION NEGATIVE (NEGATIVE)
[2020-08-07 09:16] LABS: HIV 1&2 SCREEN CENTAUR NEGATIVE (NEGATIVE)
== END ==
LOC: M PLALAB 12:44
PROVIDERS: ATTEND Nurse Practitioner Women's Health
DX: Z11.3 Encounter for screening for infections with a predominantly sexual mode of transmission (principal)

== ENCOUNTER 2020-09-15 12:44 | Inpatient (IN) | payer BC, MEDICAID ==
[~2020-09-15] VITALS: Ht 162.6 cm; Wt 76.0 kg
[2020-09-15 14:11] LABS: HEMATOCRIT 40.6 % (36.0-47.0); HEMOGLOBIN 12.7 g/dl (12.0-15.5); MEAN CORPUSCULAR HEMOGLOBIN 26.6 pg (27.0-33.0); MEAN CORPUSCULAR HGB CONC 31.3 g/dl (32.0-36.5); MEAN CORPUSCULAR VOLUME 84.9 fl (80.0-96.0); PLATELET COUNT, AUTOMATED 362 10^3/uL (150-450); RED BLOOD COUNT 4.78 10^6/uL (4.00-5.40); WHITE BLOOD COUNT 6.8 10^3/uL (4.0-10.0)
[2020-09-15 14:44] LABS: HCG, SERUM QUALITATIVE NEGATIVE (NEGATIVE)
[2020-09-15 14:49] LABS: ACETAMINOPHEN LEVEL < 2.0 UG/ML (10.0-30.0); ALBUMIN 3.2 GM/DL (3.2-5.2); ALT/SGPT 44 U/L (12-78); BILIRUBIN,DIRECT 0.2 MG/DL (0.0-0.2); BILIRUBIN,TOTAL 0.4 MG/DL (0.2-1.0); BLOOD UREA NITROGEN 8 MG/DL (7-18); CARBON DIOXIDE LEVEL 23 MEQ/L (21-32); CHLORIDE LEVEL 106 MEQ/L (98-107); CREATININE FOR GFR 0.66 MG/DL (0.55-1.30); ETHYL ALCOHOL (ETHANOL) < 0.003 % (0.000-0.010); GLOMERULAR FILTRATION RATE > 60.0 (>60); GLUCOSE, FASTING 156 MG/DL (70-100); POTASSIUM SERUM 3.9 MEQ/L (3.5-5.1); SALICYLATE LEVEL < 1.7 MG/DL (5.0-30.0); SODIUM LEVEL 141 MEQ/L (136-145); THYROID STIMULATING HORMONE 0.283 uIU/ML (0.358-3.740)
[2020-09-15 14:52] LABS: AMPHETAMINES LEVEL URINE NEGATIVE (NEGATIVE); BARBITURATES URINE NEGATIVE (NEGATIVE); BENZODIAZEPINES URINE NEGATIVE (NEGATIVE); CANNABINOIDS URINE NEGATIVE (NEGATIVE); COCAINE METABOLITE URINE NEGATIVE (NEGATIVE); METHADONE URINE NEGATIVE (NEGATIVE); OPIATES URINE NEGATIVE (NEGATIVE); PHENCYCLIDINE URINE NEGATIVE (NEGATIVE)
[2020-09-15] MEDS ORDERED: ACETAMINOPHEN TAB 650MG DOSE (2X325MG) PO ONE (15:55)
[2020-09-15] MEDS ORDERED: SEMA3TAB PO (19:23)
[2020-09-15] MEDS ORDERED: D31000TA2 PO (19:23)
[2020-09-15] MEDS ORDERED: ARIPiprazole 10 MG TAB PO SCH (21:00)
[2020-09-15] MEDS ORDERED: guanFACINE 1 MG TAB PO SCH (21:00)
[2020-09-15] MEDS ORDERED: VITAMIN D 1,000 INTERNATIONAL UNITS TABLET PO SCH (21:00)
[2020-09-15] MEDS ORDERED: FLUoxetine 20 MG CAP PO SCH (21:00)
[2020-09-15] MEDS ORDERED: LEVEMIR (INSULIN DETEMIR) 1 UNITS/0.01ML SC SCH (21:00)
[2020-09-15] MEDS ORDERED: traZODone 50 MG TAB PO SCH (21:00)
[2020-09-15] MEDS ORDERED: HumaLOG INSULIN (NovoLOG) PER UNIT SC SCH (21:00)
[2020-09-15] MEDS ORDERED: SIMVASTATIN 40 MG TAB PO SCH (21:00)
[2020-09-15] MEDS: DOCUSATE SODIUM 100MG CAPSULE PO SCH (23:03)
[2020-09-15] MEDS: metFORMIN XR 500MG TAB *GLUCOPHAGE XR PO SCH (23:04)
[2020-09-16] MEDS: NICOTINE 21MG/24HR 1 EA TRANSDERMAL TD SCH ×2 (09:00→16:41)
[2020-09-16] MEDS: DOCUSATE SODIUM 100MG CAPSULE PO SCH ×2 (09:37→20:29)
[2020-09-16] MEDS: metFORMIN XR 500MG TAB *GLUCOPHAGE XR PO SCH ×2 (09:38→20:28)
[2020-09-16] MEDS: RYBELSUS 3 MG PO SCH (11:29)
[2020-09-16] MEDS: [UNRECOGNIZED DRUG - OTHER] PO SCH (11:29)
[2020-09-16 12:51] LABS: RSV AMPLIFICATION NEGATIVE (NEGATIVE)
[2020-09-16] MEDS ORDERED: IBUPROFEN 400MG TAB PO PRN (14:15)
[2020-09-16] MEDS ORDERED: MAALOX 30 ML SUSP *UDC PO PRN (14:15)
[2020-09-16] MEDS ORDERED: MOM 30ML SUSPENSION UDC PO PRN (14:15)
[2020-09-16] MEDS ORDERED: GLUCOSE 4GM CHEW TABLET PO PRN (15:05)
[2020-09-16] MEDS ORDERED: GLUCAGON INJ 1MG VIAL SC PRN (15:05)
[2020-09-16 16:03] VITALS: BP 128/88
[2020-09-16] MEDS: HumaLOG INSULIN (NovoLOG) PER UNIT SC SCH ×2 (17:22→20:32)
[2020-09-16] MEDS ORDERED: HumaLOG INSULIN (NovoLOG) PER UNIT SC ONE (17:30)
[2020-09-16] MEDS: VITAMIN D 1,000 INTERNATIONAL UNITS TABLET PO SCH (20:26)
[2020-09-16] MEDS: ARIPiprazole 10 MG TAB PO SCH (20:26)
[2020-09-16] MEDS: FLUoxetine 20 MG CAP PO SCH (20:27)
[2020-09-16] MEDS: guanFACINE 1 MG TAB PO SCH (20:28)
[2020-09-16] MEDS: SIMVASTATIN 40 MG TAB PO SCH (20:29)
[2020-09-16] MEDS: traZODone 50 MG TAB PO SCH (20:30)
[2020-09-16] MEDS: LEVEMIR (INSULIN DETEMIR) 1 UNITS/0.01ML SC SCH (20:31)
[2020-09-16] MEDS ORDERED: metFORMIN (GLUCOPHAGE) 1000 MG TABLET PO SCH (21:00)
[2020-09-16] MEDS ORDERED: ENTER DRUG NAME HERE (PATIENT'S OWN MED) PO SCH (21:00)
[2020-09-17] MEDS: HumaLOG INSULIN (NovoLOG) PER UNIT SC SCH ×4 (06:49→20:02)
[2020-09-17 07:19] VITALS: BP 141/95
[2020-09-17] MEDS: [UNRECOGNIZED DRUG - OTHER] PO SCH (08:16)
[2020-09-17] MEDS: DOCUSATE SODIUM 100MG CAPSULE PO SCH ×2 (08:16→20:08)
[2020-09-17] MEDS: metFORMIN XR 500MG TAB *GLUCOPHAGE XR PO SCH ×2 (08:16→20:08)
[2020-09-17] MEDS: RYBELSUS 3 MG PO SCH (08:18)
[2020-09-17] MEDS ORDERED: ENTER DRUG NAME HERE (PATIENT'S OWN MED) PO SCH ×3 (09:00)
[2020-09-17] MEDS: hydrOXYzine 50 MG TAB PO PRN ×2 (09:49→21:53)
--- NOTE | 2020-09-17 11:52 | MHHPEPDOC ---
General Date Of Admission: Sep 16, 2020 Legal Status: 9.39 Chief Complaint I told my counselor that I was so upset I was thinking about killing myself and other people in the group, but I really didn't mean ". History of Present Illness HISTORY OF THE PRESENT ILLNESS: Patient is a 25 -year-old , female, who [who has a long psychiatric history with a numerous admissions since her age 15. She was asked discharge date September 2018 and has been a resident at a skilled nursing. She apparently was at a counselor's office and told her that the she was thinking about killing herself and other people because she was feeling so upset. She states that she is having problems with the skilled nursing staff and other residents . She stated that she feels like people are picking on her and bullying her, but denies any actual abuse issues and apparently was feeling very angry and expressed her impulsive thoughts but stated that she had no intent of harming anybody and she has no history of assaulting anybody and has no history of actual suicide attempt. She denies any hallucination or paranoia. Denies any other stressors and denies any plan or intent of acting out on her i mpulses and is kristie for safety. She is hoping that she might be able to go to a different skilled nursing but understands that it is not likely to happen anytime soon.]. Psychiatric Review of Systems Depression (2 or more weeks): depressed mood, suicidal thoughts Ruma (4 or more days of): denies Psychosis: denies PTSD: denies Anxiety: situational anxiety, stressor related anxiety Past Psychiatric History Previous Psychiatric Diagnosis: [Depression, schizoaffective disorder]. Previous Psychiatric Admissions: [Many admissions since age 16 Last discharge 1999]. Suicide Attempts: Denies any history of attempt. Psychiatric Follow-up: [in active treatment]. Psychiatric medications: , Prozac and Abilify. Past Medical History Medical Problems Diabetes Head Injury: No Seizures: No Hospitalizations: No Surgeries: No Family Medical/Psychiatric HX Medical Problems Noncontributory Psychiatric Disorders: No Addiction: No Suicide Attemps/Completions: No Addiction History denies Social History Childhood: [Born in [place]]. Abuse/Trauma:[Denies any history of abuse]. Current Living Situation: [Lives in a skilled nursing]. Education: Some high school. Employment: [On disability]. Social Support: [employer] staff. Legal: [Denies any history of the assault by any other legal issues]. Marital: [, Single, never ]. Has parents and 3 siblings Mental Status Examination General Appearance: appears stated age Build: average Demeanor: average Eye Contact: average Activity: average Behavior: cooperative Speech: clear, spontaneous, low in volume Mood: depressed, anxious Mood Was angry and upset with other people in the skilled nursing Affect: full, appropriate, congruent Thought Process: logical/linear Thought Content (Delusions): none reported Thought Content (Other): none reported Thought Content (Aggressive): none reported Perception (Hallucinations): none reported Perception (Other): none reported Cognition (Impairment of): none reported Cognition(Intelligence Est.): borderline Oriented: Awake, Alert, Oriented times three Insight: fair Judgment: Poor Diagnoses Major depression, recurrent, rule out schizoaffective disorder, borderline intelligence A-FIB/CHADSVASC A-FIB History Current/History of A-Fib/PAF?: No Current PO Anticoag Therapy: No Age/Risk Factor Scoring CHADSVASC: CHADSVASC Response (Comments) Value Gender Risk Factor Female 1 Hx of CHF No 0 Hx of HTN No 0 Hx of Stroke/TIA/or VTE No 0 Hx of Diabetes No 0 Hx of Vascular Disease No 0 Total 1 Treatment Treatment ordered: NONE Assessment Appears more of a situational exacerbation of underlying depression and character disorder. She does not appear to be acutely suicidal and does not appear to be a imminent danger to others and does not appear to be actively psychotic Initial Treatment Plan 1. Patient was admitted on a 9.39 status. 2. Complete history was obtained. 3. With patients permission, family will be contacted and database will be expanded. 4. Patients medication regimen will be reviewed and changed accordingly. 5. Patient will be provided with protected environment. 6. Patient will be treated with individual, group, and milieu therapies. 7. Patient will receive supportive psych-education. 8. Discharge planning will commence immediately. 9. Outpatient follow-up treatment will be strongly recommended. 10. The initial treatment plan will focus initially on: * Depression. * Risk for suicide. ESTIMATED LENGTH OF STAY: 2-3 DAYS. TIME SPENT COUNSELING AND COORDINATING INITIAL CARE: 45 minutes. Tobacco Cessation Screen If Patient is a Smoker Patient reports she is not a smoker Complete/Results docum. Vital Signs Vital Signs Date Time Temp Pulse Resp B/P (MAP) Pulse Ox O2 Delivery O2 Flow Rate FiO2 09/17/20 08:21 Room Air 09/17/20 07:19 96.5 102 18 141/95 (110) 98 Laboratory Data 24H Labs Laboratory Tests 2 09/16/20 11:59: Coronavirus (COVID-19)(PCR) NEGATIVE, Influenza Type A (RT-PCR) NEGATIVE, Influenza Type B (RT-PCR) NEGATIVE, Respiratory Syncytial Virus (PCR) NEGATIVE 09/16/20 13:18: Methicillin-Resist S.aureus DNA PCR NOT DETECTED 09/16/20 17:17: Bedside Glucose (Misc Panel) 159H 09/16/20 20:18: Bedside Glucose (Misc Panel) 193H 09/17/20 06:44: Bedside Glucose (Misc Panel) 145H Medications Scheduled Aripiprazole (Abilify) 10 Mg Tab, 10 MG PO QHS, (Reported) Cholecalciferol (Vitamin D3) (Vitamin D3) 1,000 Unit Tablet, 1,000 UNITS PO QPM, (Reported) @ 1600 Docusate Sodium (Colace) 100 Mg Cap, 100 MG PO BID, (Reported) Fluoxetine HCl (Fluoxetine HCl) 20 Mg Tab, 20 MG PO QHS, (Reported) Guanfacine HCl (Intuniv) 3 Mg Tab.er.24h, 3 MG PO QHS, (Reported) Insulin Aspart (Novolog) 100 Unit/1 Ml Cartridge, 1 DOSE SC ACHS, (Reported) PER SLIDING SCALE Insulin Glargine,Hum.rec.anlog (Lantus Solostar) 100 Unit/1 Ml Insuln.pen, 35 UNITS SC QHS, (Reported) Levonorgestrel-Ethin Estradiol (Levonor-Eth Estrad 0.15-0.03) 1 Each Tbdspk.3mo, 1 TAB PO DAILY, (Reported) Metformin HCl (Metformin ER Osmotic) 1,000 Mg Tab.er.24, 1,000 MG PO BID, (Reported) Semaglutide (Rybelsus) 3 Mg Tablet, 3 MG PO DAILY, (Reported) Simvastatin (Zocor) 40 Mg Tab, 40 MG PO QHS, (Reported) Trazodone HCl (Trazodone HCl) 50 Mg Tab, 50 MG PO QHS, (Reported) Scheduled PRN Dextrose (Glucose) 4 Gm Chw, 16 GM PO for LOW BLOOD SUGAR, (Reported) Hydroxyzine HCl (Hydroxyzine HCl) 50 Mg Tablet, 50 MG PO Q6H PRN for ANXIETY/AGITATION, (Reported) Allergies Coded Allergies: milk (Verified Allergy, Unknown, 09/23/18) topiramate (Verified Adverse Reaction, Intermediate, hallucinations, 09/16/20) BETSY CAVAZOS M.D. Sep 17, 2020 11:52
[2020-09-17 16:12] VITALS: BP 123/72
--- NOTE | 2020-09-17 17:22 | HPEPDOC ---
[facility] Medical History & Physical Date of Admission Sep 16, 2020 Date of Service: Sep 17, 2020 History and Physical CHIEF COMPLAINT: SI and HI HISTORY OF PRESENT ILLNESS: Mrs. Rowe is a 25 year old female who is in the inpatient mental health unit for SI and HI. She as seen this afternoon. Her main complain was ear pain and tells me that she frequently gets ear infections. About a week ago, she finished a 7 day course of amoxicillin per the patient. When I look into her ears, she does have erythema of the tympanic membrane. Her tragus is also very tender. She jumps back when I press on them. She may have both otitis media and externa. Otherwise, she denies fever, chest pain, dyspnea, abdominal pain, or dysuria. PAST MEDICAL HISTORY: 1. Diabetes mellitus 2. Frequent skin and vaginal yeast infection 3. Frequent ear infections 4. History of depression, schizoaffective disorder 5. Developmental delay PAST SURGICAL HISTORY: 1. Tonsillectomy 2. Adenoidectomy 3. For wisdom teeth extracted 4. Myringotomy tubes SOCIAL HISTORY: Tobacco use: Denies ETOH: Denies Illicit drug use: Denies FAMILY HISTORY: Per chart, patient is adopted and is unaware of the past family history ALLERGIES: Please see below. REVIEW OF SYSTEMS: CONSTITUTIONAL: Denies any fever. Denies lightheadedness or dizziness. ENT: Reports ear pain. Denies sore throat. RESPIRATORY: Denies shortness of breath. Denies cough. CARDIOVASCULAR: Denies chest pain. GASTROINTESTINAL: Denies abdominal pain. Denies diarrhea. GENITOURINARY: Denies dysuria. CUTANEOUS: Denies rashes. MUSCULOSKELETAL: Denies muscle weakness. NEUROLOGICAL: Denies paresthesias. PSYCHOLOGICAL: Reports depression. HOME MEDICATIONS: Please see below. PHYSICAL EXAMINATION: VITAL SIGNS: Temperature 97.2, pulse 94, respiratory rate 16, blood pressure 123/72, pulse oximetry 100 % on room air. GENERAL: Comfortable, in no apparent distress. HEENT: Tympanic membrane has some erythema and tragus is tender. EOMI, sclera clear. NECK: Supple. RESPIRATORY: Lungs clear to auscultation bilaterally, no rales, wheeze or rhonchi. CARDIOVASCULAR: Regular rate and rhythm. ABDOMEN: Soft, nontender, no guarding or rebound tenderness. Normal bowel sounds. MUSCLE SKELETAL: Muscle strength 5/5 in all extremities. NEUROLOGICAL: CN 312 grossly intact, no focal deficits noted. PSYCHOLOGICAL: Normal mood and affect LABORATORY DATA: See below. IMAGING: None MICROBIOLOGY: Please see below. ASSESSMENT and PLAN: 1. Unspecified depressive disorder Patient being managed in the inpatient mental health unit 2. Recurrent otitis media Patient reports completing an antibiotic course of amoxicillin without any improvement We'll start patient on Augmentin. Will need a 10 day course of antibiotics Patient may benefit from ENT referral for recurrent otitis media 3. Otitis externa Patient's tragus is also tender We'll start patient on ciprofloxacin/dexamethasone. Patient will need a 7 day course of eardrops Thank you for consulting us. We will sign off at this time. If there is any further questions or concerns please do not hesitate to contact us. Vital Signs Vital Signs Date Time Temp Pulse Resp B/P (MAP) Pulse Ox O2 Delivery O2 Flow Rate FiO2 09/17/20 16:12 97.2 94 16 123/72 (89) 100 Room Air Laboratory Data Labs 24H Laboratory Tests 2 09/16/20 17:17: Bedside Glucose (Misc Panel) 159H 09/16/20 20:18: Bedside Glucose (Misc Panel) 193H 09/17/20 06:44: Bedside Glucose (Misc Panel) 145H 09/17/20 11:55: Bedside Glucose (Misc Panel) 188H 09/17/20 16:52: Bedside Glucose (Misc Panel) 184H Home Medications Scheduled Aripiprazole (Abilify) 10 Mg Tab, 10 MG PO QHS Cholecalciferol (Vitamin D3) (Vitamin D3) 1,000 Unit Tablet, 1,000 UNITS PO QPM @ 1600 Docusate Sodium (Colace) 100 Mg Cap, 100 MG PO BID Fluoxetine HCl (Fluoxetine HCl) 20 Mg Tab, 20 MG PO QHS Guanfacine HCl (Intuniv) 3 Mg Tab.er.24h, 3 MG PO QHS Insulin Aspart (Novolog) 100 Unit/1 Ml Cartridge, 1 DOSE SC ACHS PER SLIDING SCALE Insulin Glargine,Hum.rec.anlog (Lantus Solostar) 100 Unit/1 Ml Insuln.pen, 35 UNITS SC QHS Levonorgestrel-Ethin Estradiol (Levonor-Eth Estrad 0.15-0.03) 1 Each Tbdspk.3mo, 1 TAB PO DAILY Metformin HCl (Metformin ER Osmotic) 1,000 Mg Tab.er.24, 1,000 MG PO BID Semaglutide (Rybelsus) 3 Mg Tablet, 3 MG PO DAILY Simvastatin (Zocor) 40 Mg Tab, 40 MG PO QHS Trazodone HCl (Trazodone HCl) 50 Mg Tab, 50 MG PO QHS Scheduled PRN Dextrose (Glucose) 4 Gm Chw, 16 GM PO for LOW BLOOD SUGAR Hydroxyzine HCl (Hydroxyzine HCl) 50 Mg Tablet, 50 MG PO Q6H PRN for AN XIETY/AGITATION Allergies Coded Allergies: milk (Verified Allergy, Unknown, 09/23/18) topiramate (Verified Adverse Reaction, Intermediate, hallucinations, 09/16/20) A-FIB/CHADSVASC A-FIB History Current/History of A-Fib/PAF?: No Age/Risk Factor Scoring CHADSVASC: CHADSVASC Response (Comments) Value Gender Risk Factor Female 1 Hx of CHF No 0 Hx of HTN No 0 Hx of Stroke/TIA/or VTE No 0 Hx of Diabetes No 0 Hx of Vascular Disease No 0 Total 1 CHELSIE TREVINO DO Sep 17, 2020 17:22
[2020-09-17] MEDS: LEVEMIR (INSULIN DETEMIR) 1 UNITS/0.01ML SC SCH (20:06)
[2020-09-17] MEDS: FLUoxetine 20 MG CAP PO SCH (20:07)
[2020-09-17] MEDS: VITAMIN D 1,000 INTERNATIONAL UNITS TABLET PO SCH (20:08)
[2020-09-17] MEDS: AUGMENTIN 875 MG TAB PO SCH (20:08)
[2020-09-17] MEDS: SIMVASTATIN 40 MG TAB PO SCH (20:08)
[2020-09-17] MEDS: traZODone 50 MG TAB PO SCH (20:08)
[2020-09-17] MEDS: guanFACINE 1 MG TAB PO SCH (20:08)
[2020-09-17] MEDS: ARIPiprazole 10 MG TAB PO SCH (20:08)
[2020-09-17] MEDS: CIPRODEX OTIC SUSP 7.5ML AU SCH (20:09)
[2020-09-17] MEDS ORDERED: LORazepam 1 MG TAB PO ONE (22:35)
[2020-09-17] MEDS ORDERED: OLANZapine ORAL DISINTEGRATING TAB 5MG PO ONE (22:35)
[2020-09-18 06:34] VITALS: BP 136/86
[2020-09-18] MEDS: HumaLOG INSULIN (NovoLOG) PER UNIT SC SCH ×4 (07:36→20:35)
[2020-09-18] MEDS: [UNRECOGNIZED DRUG - OTHER] PO SCH (09:49)
[2020-09-18] MEDS: RYBELSUS 3 MG PO SCH (09:50)
[2020-09-18] MEDS: AUGMENTIN 875 MG TAB PO SCH ×2 (09:50→20:42)
[2020-09-18] MEDS: DOCUSATE SODIUM 100MG CAPSULE PO SCH ×2 (09:51→20:42)
[2020-09-18] MEDS: CIPRODEX OTIC SUSP 7.5ML AU SCH ×2 (09:52→20:35)
[2020-09-18] MEDS: metFORMIN XR 500MG TAB *GLUCOPHAGE XR PO SCH ×2 (09:52→20:42)
[2020-09-18] MEDS ORDERED: OLANZapine ORAL DISINTEGRATING TAB 5MG PO PRN (10:45)
--- NOTE | 2020-09-18 10:53 | MHIPNPDOC ---
[facility] Progress Note Progress Note DATE OF SERVICE: 09/18/20 The patient was asking for discharge back to her skilled nursing yesterday, but since then has been showing increasing agitation, irritability and threatening that s he would act out if she went back to the skilled nursing. She is preoccupied with her perceived missed treatment and claiming that she was being bullied. She is denying any command hallucination is not expressing any delusional or ideas, but continued to show progressive thoughts and vague threats. She needs further observation and stabilization for safe discharge planning.. HISTORY: . VITAL SIGNS: See below. NEW TEST RESULTS: . CURRENT MEDICATIONS: See below. MENTAL STATUS EXAMINATION: Patient is a 25-year old female, who is , somewhat demanding and irritable. Speech: Is pressured about relevant. Language skills are fair. Thought processes including: Relevant. Thought content: Believes that she is being bullied. Abstract reasoning, and computation: For. Description of associations: Relevant. Description of abnormal or psychotic thoughts: No gross delusions or command hallucination. Judgment: poor. Insight: poor. Orientation: , Oriented. Recent and remote memory: Fair. Attention span and concentration: poor. Language: . Fund of knowledge: Below average. Mood: , Anxious, irritable. Affect: Labile. DIAGNOSES: 1. . Depressive disorder 2. . Personality disorder, mixed, and borderline intelligence 3. . ASSESSMENT:Patient remained irritable and expressing vague verbal threats] MANAGEMENT PLAN: [Needs further stabilization]. TIME SPENT: [20] minutes. Vital Signs Vital Signs Date Time Temp Pulse Resp B/P (MAP) Pulse Ox O2 Delivery O2 Flow Rate FiO2 09/18/20 06:34 97.1 84 16 136/86 (103) 99 Room Air Laboratory Data 24H Labs Laboratory Tests 2 09/17/20 11:55: Bedside Glucose (Misc Panel) 188H 09/17/20 16:52: Bedside Glucose (Misc Panel) 184H 09/17/20 20:00: Bedside Glucose (Misc Panel) 218H 09/18/20 06:34: Bedside Glucose (Misc Panel) 167H Current Medications Current Medications Medications (Trade) Dose Ordered Sig/Jomar Route PRN Reason Start Time Stop Time Status Last Admin Dose Admin Al Hydrox/Mg Hydrox/Simethicone (Mylanta) 30 ml Q4HP PRN PO HEARTBURN/INDIGESTION 09/16/20 14:15 Amoxicillin/ Clavulanate Potassium (Augmentin) 875 mg BID PO 09/17/20 21:00 09/27/20 20:59 09/18/20 09:50 Aripiprazole (AbiLIFY) 10 mg QHS PO 09/15/20 21:00 09/16/20 14:46 DC 09/15/20 23:03 Aripiprazole (AbiLIFY) 10 mg QHS PO 09/16/20 21:00 09/17/20 20:08 Ciprofloxacin/ Dexamethasone (Ciprodex Otic) 4 drop BID AU 09/17/20 21:00 09/24/20 20:59 09/18/20 09:52 Docusate Sodium (Colace) 100 mg BID PO 09/15/20 21:00 09/16/20 14:46 DC 09/16/20 09:37 Docusate Sodium (Colace) 100 mg BID PO 09/16/20 21:00 09/18/20 09:51 Fluoxetine HCl (PROzac) 20 mg QHS PO 09/15/20 21:00 09/16/20 14:46 DC 09/15/20 23:03 Fluoxetine HCl (PROzac) 20 mg QHS PO 09/16/20 21:00 09/17/20 20:07 Glucagon (Glucagon) 1 mg ASDIRECTED PRN SC SEE LABEL COMMENTS 09/16/20 15:05 Glucose (Glucose) 16 GM ASDIRECTED PRN PO SEE LABEL COMMENTS 09/16/20 15:05 Guanfacine HCl (Tenex) 3 mg QHS PO 09/15/20 21:00 09/16/20 14:55 DC 09/15/20 23:05 Guanfacine HCl (Tenex) 3 mg QHS PO 09/16/20 21:00 09/17/20 20:08 Home Med (Med Rec Complete!) ASDIRECTED XX 09/15/20 19:25 09/15/20 19:27 DC Hydroxyzine HCl (Atarax) 50 mg Q6HP PRN PO anxiety 09/16/20 14:15 09/17/20 21:53 Ibuprofen (Advil) 400 mg Q6HP PRN PO PAIN 09/16/20 14:15 Insulin Detemir (Levemir Insulin) 35 units QHS SC 09/15/20 21:00 09/16/20 14:47 DC 09/15/20 23:06 Insulin Detemir (Levemir Insulin) 35 units QHS WI 09/16/20 21:00 09/17/20 20:06 Insulin Human Lispro (HumaLOG INSULIN) See Protocol Table AC WI 09/16/20 17:30 09/18/20 07:36 Insulin Human Lispro (HumaLOG INSULIN) [facility] 09/15/20 21:00 09/16/20 14:47 DC 09/15/20 23:06 Insulin Human Lispro (HumaLOG INSULIN) See Protocol [facility] 09/16/20 21:00 Magnesium Hydroxide (Milk Of Magnesia) 30 ml DAILYPRN PRN PO CONSTIPATION 09/16/20 14:15 Metformin HCl (Glucophage Xr) 1,000 mg BID PO 09/15/20 21:00 09/16/20 14:57 DC 09/16/20 09:38 Metformin HCl (Glucophage Xr) 1,000 mg BID PO 09/16/20 21:00 09/18/20 09:52 Metformin HCl (Glucophage) 1,000 mg BID PO 09/16/20 21:00 UNV Miscellaneous (Unresolved Patient Own Med Order) SEE LABEL COMMENTS DAILY XX 09/16/20 09:00 09/16/20 11:42 DC Miscellaneous (Unresolved Patient Own Med Order) SEE LABEL COMMENTS DAILY XX 09/16/20 09:00 09/16/20 11:42 DC Nicotine (Nicoderm Cq 21mg) 1 patch DAILY TD 09/16/20 09:00 09/16/20 18:00 DC Patient Own Medication (Patient'S Own Med) 1 TAB DAILY PO 09/16/20 09:00 09/18/20 09:49 Patient Own Medication (Patient'S Own Med) 1 TABLET (3MG) DAILY PO 09/16/20 09:00 09/18/20 09:50 Patient Own Medication (Patient'S Own Med) 1 ea DAILY PO 09/17/20 09:00 09/16/20 10:37 DC Patient Own Medication (Patient'S Own Med) 1 ea DAILY PO 09/17/20 09:00 09/16/20 14:56 DC Patient Own Medication (Patient'S Own Med) 1 ea DAILY PO 09/17/20 09:00 09/16/20 14:56 DC Patient Own Medication (Patient'S Own Med) 1 ea QHS PO 09/16/20 21:00 UNV Simvastatin (Zocor) 40 mg QHS PO 09/15/20 21:00 09/16/20 14:48 DC 09/15/20 23:03 Simvastatin (Zocor) 40 mg QHS PO 09/16/20 21:00 09/17/20 20:08 Trazodone HCl (Desyrel) 50 mg QHS PO 09/15/20 21:00 09/16/20 14:48 DC 09/15/20 23:03 Trazodone HCl (Desyrel) 50 mg QHS PO 09/16/20 21:00 09/17/20 20:08 Vitamin D (Vitamin D) 1,000 units QHS PO 09/15/20 21:00 09/16/20 14:53 DC 09/15/20 23:03 Vitamin D (Vitamin D) 1,000 units QHS PO 09/16/20 21:00 09/17/20 20:08 Allergies Coded Allergies: milk (Verified Allergy, Unknown, 09/23/18) topiramate (Verified Adverse Reaction, Intermediate, hallucinations, 09/16/20) BETSY CAVAZOS M.D. Sep 18, 2020 10:53
[2020-09-18] MEDS: hydrOXYzine 50 MG TAB PO PRN (20:29)
[2020-09-18] MEDS: LEVEMIR (INSULIN DETEMIR) 1 UNITS/0.01ML SC SCH (20:35)
[2020-09-18] MEDS: guanFACINE 1 MG TAB PO SCH (20:42)
[2020-09-18] MEDS: FLUoxetine 20 MG CAP PO SCH (20:42)
[2020-09-18] MEDS: traZODone 100 MG TAB PO SCH (20:42)
[2020-09-18] MEDS: VITAMIN D 1,000 INTERNATIONAL UNITS TABLET PO SCH (20:42)
[2020-09-18] MEDS: ARIPiprazole 10 MG TAB PO SCH (20:42)
[2020-09-18] MEDS: SIMVASTATIN 40 MG TAB PO SCH (20:42)
[2020-09-18 21:00] VITALS: BP 132/83
[2020-09-19 06:53] VITALS: BP 132/86
[2020-09-19] MEDS: HumaLOG INSULIN (NovoLOG) PER UNIT SC SCH ×4 (07:07→21:00)
[2020-09-19] MEDS: RYBELSUS 3 MG PO SCH (08:01)
[2020-09-19] MEDS: AUGMENTIN 875 MG TAB PO SCH ×2 (08:02→21:00)
[2020-09-19] MEDS: [UNRECOGNIZED DRUG - OTHER] PO SCH (08:02)
[2020-09-19] MEDS: DOCUSATE SODIUM 100MG CAPSULE PO SCH ×2 (08:03→21:00)
[2020-09-19] MEDS: CIPRODEX OTIC SUSP 7.5ML AU SCH ×2 (08:03→21:00)
[2020-09-19] MEDS: metFORMIN XR 500MG TAB *GLUCOPHAGE XR PO SCH ×2 (08:03→21:00)
[2020-09-19] MEDS: hydrOXYzine 50 MG TAB PO PRN (10:11)
[2020-09-19] MEDS: LORazepam 1 MG TAB PO PRN (10:13)
[2020-09-19] MEDS ORDERED: LORazepam 1 MG TAB PO ONE (15:30)
[2020-09-19 17:30] VITALS: BP 127/64
[2020-09-19 20:30] VITALS: BP 138/83
[2020-09-19] MEDS: SIMVASTATIN 40 MG TAB PO SCH (21:00)
[2020-09-19] MEDS: ARIPiprazole 10 MG TAB PO SCH (21:00)
[2020-09-19] MEDS: traZODone 100 MG TAB PO SCH (21:00)
[2020-09-19] MEDS: LEVEMIR (INSULIN DETEMIR) 1 UNITS/0.01ML SC SCH (21:00)
[2020-09-19] MEDS: FLUoxetine 20 MG CAP PO SCH (21:00)
[2020-09-19] MEDS: guanFACINE 1 MG TAB PO SCH (21:00)
[2020-09-19] MEDS: VITAMIN D 1,000 INTERNATIONAL UNITS TABLET PO SCH (21:00)
[2020-09-20 06:00] VITALS: BP 156/103
[2020-09-20] MEDS: HumaLOG INSULIN (NovoLOG) PER UNIT SC SCH ×4 (06:38→20:26)
[2020-09-20] MEDS: RYBELSUS 3 MG PO SCH (08:26)
[2020-09-20] MEDS: CIPRODEX OTIC SUSP 7.5ML AU SCH ×2 (08:26→20:26)
[2020-09-20] MEDS: [UNRECOGNIZED DRUG - OTHER] PO SCH (08:27)
[2020-09-20] MEDS: AUGMENTIN 875 MG TAB PO SCH ×2 (08:28→20:10)
[2020-09-20] MEDS: metFORMIN XR 500MG TAB *GLUCOPHAGE XR PO SCH ×2 (08:28→20:10)
[2020-09-20] MEDS: DOCUSATE SODIUM 100MG CAPSULE PO SCH ×2 (08:28→20:10)
[2020-09-20] MEDS: hydrOXYzine 50 MG TAB PO PRN (08:29)
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
[2020-09-20] MEDS ORDERED: LORazepam 1 MG TAB PO ONE (14:55)
[2020-09-20] MEDS ORDERED: diphenhydrAMINE 50MG CAP PO ONE (14:55)
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
[2020-09-20 17:58] VITALS: BP 147/88
[2020-09-20] MEDS: traZODone 100 MG TAB PO SCH (20:10)
[2020-09-20] MEDS: VITAMIN D 1,000 INTERNATIONAL UNITS TABLET PO SCH (20:10)
[2020-09-20] MEDS: SIMVASTATIN 40 MG TAB PO SCH (20:10)
[2020-09-20] MEDS: FLUoxetine 20 MG CAP PO SCH (20:10)
[2020-09-20] MEDS: ARIPiprazole 10 MG TAB PO SCH (20:25)
[2020-09-20] MEDS: LEVEMIR (INSULIN DETEMIR) 1 UNITS/0.01ML SC SCH (20:28)
[2020-09-20] MEDS: guanFACINE 1 MG TAB PO SCH (20:48)
[2020-09-21] MEDS: LORazepam 1 MG TAB PO PRN (01:09)
[2020-09-21] MEDS: hydrOXYzine 50 MG TAB PO PRN ×2 (01:11→08:34)
[2020-09-21 06:17] VITALS: BP 133/87
[2020-09-21] MEDS: HumaLOG INSULIN (NovoLOG) PER UNIT SC SCH (06:32)
[2020-09-21] MEDS ORDERED: PILL CUTTER 1 EACH XX PRN (07:35)
[2020-09-21] MEDS: CIPRODEX OTIC SUSP 7.5ML AU SCH (08:31)
[2020-09-21] MEDS: metFORMIN XR 500MG TAB *GLUCOPHAGE XR PO SCH (08:34)
[2020-09-21] MEDS: AUGMENTIN 875 MG TAB PO SCH (08:35)
[2020-09-21] MEDS: DOCUSATE SODIUM 100MG CAPSULE PO SCH (08:35)
[2020-09-21] MEDS: RYBELSUS 3 MG PO SCH (08:35)
[2020-09-21] MEDS: [UNRECOGNIZED DRUG - OTHER] PO SCH (08:35)
[2020-09-21 08:36] VITALS: BP 133/87
[2020-09-21] MEDS ORDERED: guanFACINE 1 MG TAB PO SCH (09:00)
--- NOTE | 2020-09-21 09:11 | MHIPNPDOC ---
[facility] Progress Note Progress Note DATE OF SERVICE: 09/21/20 The patient is maintaining good control and has not shown any suicidal or assaultive behavior. She is now claiming that she really has no intention of the harming anybody and just wants to call back to her shelter, although she still wants a transfer to a different shelter at the end. She is offering no new complaints and does not appear to be in any acute distress and has been fairly compliant with her medications and barney activities. We will contact the shelter for possible return [place]SE[place]. HISTORY: . VITAL SIGNS: See below. NEW TEST RESULTS: . CURRENT MEDICATIONS: See below. MENTAL STATUS EXAMINATION: Patient is a 25-year old female, who is in no acute distress. Speech: Is simplistic but rational. Language skills are , fair. Thought processes including: Relevant and coherent. Thought content: Denies any thoughts of harming anybody. Abstract reasoning, and computation: poor. Description of associations: Relevant. Description of abnormal or psychotic thoughts: Denies any hallucination. No paranoia. Judgment: , Fair. Insight: fair.. Orientation: , Oriented. Recent and remote memory: , Fair. Attention span and concentration: poor]. Language: . Fund of knowledge: Below average. Mood: , Mildly anxious but denies any serious depression. Affect: Blunted but appropriate. DIAGNOSES: 1. Major depression. 2. . Personality disorder, mixed 3. . ASSESSMENT:[Maintaining good control and wants to return to her shelter] MANAGEMENT PLAN: [. We will contact the shelter for discharge]. TIME SPENT: [20] minutes. Vital Signs Vital Signs Date Time Temp Pulse Resp B/P (MAP) Pulse Ox O2 Delivery O2 Flow Rate FiO2 09/21/20 08:36 133/87 09/21/20 06:17 98.2 71 16 98 Room Air Laboratory Data 24H Labs Laboratory Tests 2 09/20/20 11:38: Bedside Glucose (Misc Panel) 288H 09/20/20 17:06: Bedside Glucose (Misc Panel) 182H 09/20/20 20:06: Bedside Glucose (Misc Panel) 164H 09/21/20 06:24: Bedside Glucose (Misc Panel) 280H Current Medications Current Medications Medications (Trade) Dose Ordered Sig/Jomar Route PRN Reason Start Time Stop Time Status Last Admin Dose Admin Al Hydrox/Mg Hydrox/Simethicone (Mylanta) 30 ml Q4HP PRN PO HEARTBURN/INDIGESTION 09/16/20 14:15 Amoxicillin/ Clavulanate Potassium (Augmentin) 875 mg BID PO 09/17/20 21:00 09/27/20 20:59 09/21/20 08:35 Aripiprazole (AbiLIFY) 10 mg QHS PO 09/15/20 21:00 09/16/20 14:46 DC 09/15/20 23:03 Aripiprazole (AbiLIFY) 10 mg QHS PO 09/16/20 21:00 09/18/20 20:42 Ciprofloxacin/ Dexamethasone (Ciprodex Otic) 4 drop BID AU 09/17/20 21:00 09/24/20 20:59 09/18/20 09:52 Docusate Sodium (Colace) 100 mg BID PO 09/15/20 21:00 09/16/20 14:46 DC 09/16/20 09:37 Docusate Sodium (Colace) 100 mg BID PO 09/16/20 21:00 09/21/20 08:35 Fluoxetine HCl (PROzac) 20 mg QHS PO 09/15/20 21:00 09/16/20 14:46 DC 09/15/20 23:03 Fluoxetine HCl (PROzac) 20 mg QHS PO 09/16/20 21:00 09/20/20 20:10 Glucagon (Glucagon) 1 mg ASDIRECTED PRN SC SEE LABEL COMMENTS 09/16/20 15:05 Glucose (Glucose) 16 GM ASDIRECTED PRN PO SEE LABEL COMMENTS 09/16/20 15:05 Guanfacine HCl (Tenex) 1.5 mg BID PO 09/21/20 09:00 09/21/20 08:36 Guanfacine HCl (Tenex) 3 mg QHS PO 09/15/20 21:00 09/16/20 14:55 DC 09/15/20 23:05 Guanfacine HCl (Tenex) 3 mg QHS PO 09/16/20 21:00 09/21/20 07:28 DC 09/18/20 20:42 Home Med (Med Rec Complete!) ASDIRECTED XX 09/15/20 19:25 09/15/20 19:27 DC Hydroxyzine HCl (Atarax) 50 mg Q6HP PRN PO anxiety 09/16/20 14:15 09/21/20 08:34 Ibuprofen (Advil) 400 mg Q6HP PRN PO PAIN 09/16/20 14:15 Insulin Detemir (Levemir Insulin) 35 units QHS SC 09/15/20 21:00 09/16/20 14:47 DC 09/15/20 23:06 Insulin Detemir (Levemir Insulin) 35 units QHS SC 09/16/20 21:00 09/20/20 20:28 Insulin Human Lispro (HumaLOG INSULIN) See Protocol Table AC AL 09/16/20 17:30 09/21/20 06:32 Insulin Human Lispro (HumaLOG INSULIN) [facility]20 21:00 09/16/20 14:47 DC 09/15/20 23:06 Insulin Human Lispro (HumaLOG INSULIN) [facility] 09/16/20 21:00 Lorazepam (Ativan) 1 mg Q6HP PRN PO ANXIETY 09/18/20 10:45 09/21/20 01:09 Magnesium Hydroxide (Milk Of Magnesia) 30 ml DAILYPRN PRN PO CONSTIPATION 09/16/20 14:15 Metformin HCl (Glucophage Xr) 1,000 mg BID PO 09/15/20 21:00 09/16/20 14:57 DC 09/16/20 09:38 Metformin HCl (Glucophage Xr) 1,000 mg BID PO 09/16/20 21:00 09/21/20 08:34 Metformin HCl (Glucophage) 1,000 mg BID PO 09/16/20 21:00 UNV Miscellaneous (Unresolved Clarification Entry) SEE LABEL COMMENTS DAILY XX 09/18/20 09:00 09/18/20 14:53 DC Miscellaneous (Unresolved Patient Own Med Order) SEE LABEL COMMENTS DAILY XX 09/16/20 09:00 09/16/20 11:42 DC Miscellaneous (Unresolved Patient Own Med Order) SEE LABEL COMMENTS DAILY XX 09/16/20 09:00 09/16/20 11:42 DC Nicotine (Nicoderm Cq 21mg) 1 patch DAILY TD 09/16/20 09:00 09/16/20 18:00 DC Olanzapine (ZyPREXA ZYDIS) 5 mg Q6HP PRN PO ANXIETY/AGITATION 09/18/20 10:45 09/19/20 10:12 Patient Own Medication (Patient'S Own Med) 1 TAB DAILY PO 09/16/20 09:00 09/21/20 08:35 Patient Own Medication (Patient'S Own Med) 1 TABLET (3MG) DAILY PO 09/16/20 09:00 09/21/20 08:35 Patient Own Medication (Patient'S Own Med) 1 ea DAILY PO 09/17/20 09:00 09/16/20 10:37 DC Patient Own Medication (Patient'S Own Med) 1 ea DAILY PO 09/17/20 09:00 09/16/20 14:56 DC Patient Own Medication (Patient'S Own Med) 1 ea DAILY PO 09/17/20 09:00 09/16/20 14:56 DC Patient Own Medication (Patient'S Own Med) 1 ea QHS PO 09/16/20 21:00 UNV Simvastatin (Zocor) 40 mg QHS PO 09/15/20 21:00 09/16/20 14:48 DC 09/15/20 23:03 Simvastatin (Zocor) 40 mg QHS PO 09/16/20 21:00 09/20/20 20:10 Trazodone HCl (Desyrel) 50 mg QHS PO 09/15/20 21:00 09/16/20 14:48 DC 09/15/20 23:03 Trazodone HCl (Desyrel) 50 mg QHS PO 09/16/20 21:00 09/18/20 20:29 DC 09/17/20 20:08 Trazodone HCl (Desyrel) 100 mg QHS PO 09/18/20 21:00 09/20/20 20:10 Vitamin D (Vitamin D) 1,000 units QHS PO 09/15/20 21:00 09/16/20 14:53 DC 09/15/20 23:03 Vitamin D (Vitamin D) 1,000 units QHS PO 09/16/20 21:00 09/20/20 20:10 Allergies Coded Allergies: milk (Verified Allergy, Unknown, 09/23/18) topiramate (Verified Adverse Reaction, Intermediate, hallucinations, 09/16/20) BETSY CAVAZOS M.D. Sep 21, 2020 09:11
[2020-09-21] MEDS ORDERED: FLUO20CA22 PO (10:30)
--- NOTE | 2020-09-21 10:41 | MHDSPDOC ---
[facility] Discharge Summary Discharge Summary DATE OF ADMISSION: Sep 16, 2020 at 14:14 DATE OF DISCHARGE: 09/21/2020 DISCHARGE DIAGNOSES: 1. . Major depression, recurrent 2. . Personality disorder, mixed REASON FOR ADMISSION: The patient was admitted after she made verbal threats of killing myself and other people at her group. She apparently had some issues at her [facility] staff and other residents and an made a verbal threats. After admission, she is denying any intent to harm anybody and denies any hallucinations or paranoid. CONSULTANTS INVOLVED: TREATMENT AND PROGRESS ON THE UNIT : . She was continued on her medications including Abilify 10 mg, Prozac 20 mg and Atarax as needed and continue the diabetes medication. She was a somewhat childish regressed and attention seeking, but didn't show any bizarre aggressive or assaultive behavior and maintained good control. She is denying any command hallucination and denies any lethality issues and is willing to return to her group. HOSPITAL COURSE: [Patient maintained good control and didn't exhibit any dangerous behavior and appears to be at her baseline mental status and behavior.] DISCHARGE ASSESSMENT: [, Stable and not a danger to herself or others] MENTAL STATUS EXAMINATION ON DISCHARGE: Patient is a 25 -year old female, who is [in good control]. Speech is [simplistic but rational]. Language skills are [fair]. Thought processes including: [Relevant]. Thought content: [Denies any suicidal or homicidal thoughts]. Abstract reasoning, and computation: [poor]. Description of associations: [, Relevant, coherent]. Description of abnormal or psychotic thoughts: [Denies any hallucination or paranoia]. Judgment: [Fair]. Insight: [Fair]. Orientation to [, oriented]. Recent and remote memory: [Fair]. Attention span and concentration: [Fair]. Language: . Fund of knowledge: [Below average]. Mood: [Euthymic]. Affect: Blunted but appropriate. MEDICATIONS ON DISCHARGE: - for . Continue her current home medicine - for . - for . PLAN/FOLLOWUP ARRANGEMENTS: [Follow-up with her current outpatient clinic]. The amount of time spent in the coordination of care for this patient was approximately [35] minutes. ETOH/Disorder Med Rx ETOH/DRUG DISORDER RX: N/A Vital Signs/I&Os Vital Signs Date Time Temp Pulse Resp B/P (MAP) Pulse Ox O2 Delivery O2 Flow Rate FiO2 09/21/20 08:36 133/87 09/21/20 06:17 98.2 71 16 98 Room Air Laboratory Data Labs 24H Laboratory Tests 2 09/20/20 11:38: Bedside Glucose (Misc Panel) 288H 09/20/20 17:06: Bedside Glucose (Misc Panel) 182H 09/20/20 20:06: Bedside Glucose (Misc Panel) 164H 09/21/20 06:24: Bedside Glucose (Misc Panel) 280H Medications Scheduled Aripiprazole (Abilify) 10 Mg Tab, 10 MG PO QHS, (Reported) Cholecalciferol (Vitamin D3) (Vitamin D3) 1,000 Unit Tablet, 1,000 UNITS PO QPM, (Reported) @ 1600 Docusate Sodium (Colace) 100 Mg Cap, 100 MG PO BID, (Reported) Fluoxetine HCl (Fluoxetine HCl) 20 Mg Tab, 20 MG PO QHS, (Reported) Fluoxetine Hcl (Fluoxetine HCl) 20 Mg Capsule, 30 MG PO QHS for depression for 7 Days, #21 Guanfacine HCl (Intuniv) 3 Mg Tab.er.24h, 3 MG PO QHS, (Reported) Insulin Aspart (Novolog) 100 Unit/1 Ml Cartridge, 1 DOSE SC ACHS, (Reported) PER SLIDING SCALE Insulin Glargine,Hum.rec.anlog (Lantus Solostar) 100 Unit/1 Ml Insuln.pen, 35 UNITS SC QHS, (Reported) Levonorgestrel-Ethin Estradiol (Levonor-Eth Estrad 0.15-0.03) 1 Each Tbdspk.3mo, 1 TAB PO DAILY, (Reported) Metformin HCl (Metformin ER Osmotic) 1,000 Mg Tab.er.24, 1,000 MG PO BID, (Re ported) Semaglutide (Rybelsus) 3 Mg Tablet, 3 MG PO DAILY, (Reported) Simvastatin (Zocor) 40 Mg Tab, 40 MG PO QHS, (Reported) Trazodone HCl (Trazodone HCl) 50 Mg Tab, 50 MG PO QHS, (Reported) Scheduled PRN Dextrose (Glucose) 4 Gm Chw, 16 GM PO for LOW BLOOD SUGAR, (Reported) Hydroxyzine HCl (Hydroxyzine HCl) 50 Mg Tablet, 50 MG PO Q6H PRN for ANXIET Y/AGITATION, (Reported) Allergies Coded Allergies: milk (Verified Allergy, Unknown, 09/23/18) topiramate (Verified Adverse Reaction, Intermediate, hallucinations, 09/16/20) BETSY CAVAZOS M.D. Sep 21, 2020 10:41
== END 2020-09-21 11:00 | disposition home or self-care (01) | DRG 751 ==
LOC: M ED 12:44 → M ED INP 09-16 14:14 → M PSY 09-16 16:00
PROVIDERS: ADMIT Psychiatry & Neurology Psychiatry; ATTEND Psychiatry & Neurology Psychiatry
DX: F33.9 Major depressive disorder, recurrent, unspecified (principal); F25.9 Schizoaffective disorder, unspecified; R41.83 Borderline intellectual functioning; Z20.822 Contact with and (suspected) exposure to COVID-19; Z79.4 Long term (current) use of insulin; Z79.899 Other long term (current) drug therapy; Z88.8 Allergy status to other drugs, medicaments and biological substances; Z91.011 Allergy to milk products; E11.9 Type 2 diabetes mellitus without complications; H66.93 Otitis media, unspecified, bilateral; H60.93 Unspecified otitis externa, bilateral; F60.89 Other specific personality disorders

== ENCOUNTER → 2020-12-10 | Outpatient (REF) | payer BC, MEDICAID ==
[~2020-12-10] MED LIST changes: +D31000TA2 PO; +FLUO20CA22 PO; -QUET50TA3 PO; +QUET50TA4 PO; +SEMA3TAB PO
[2020-12-10 14:27] LABS: GC DNA AMPLIFICATION NEGATIVE (NEGATIVE)
== END ==
LOC: M SFHCWAGY 11:59
PROVIDERS: ATTEND Nurse Practitioner Women's Health
DX: Z11.3 Encounter for screening for infections with a predominantly sexual mode of transmission (principal); Z12.4 Encounter for screening for malignant neoplasm of cervix; R87.610 Atypical squamous cells of undetermined significance on cytologic smear of cervix (ASC-US)
CPT/HCPCS: 87624; 87661; G0123

== ENCOUNTER → 2021-06-04 | Outpatient (CLI) | payer BC, MEDICAID ==
[~2021-06-04] MED LIST changes: -FLUO10CA16 PO; +FLUO10CA18 PO
[2021-06-04 16:05] LABS: BASO % 0.5 % (0.0-1.0); EOS # 0.1 10^3/uL (0.0-0.5); HEMOGLOBIN 11.7 g/dl (12.0-15.5); LYMPH # 2.6 10^3/uL (1.5-5.0); LYMPH % 41.1 % (24.0-44.0); MEAN CORPUSCULAR HEMOGLOBIN 27.5 pg (27.0-33.0); MEAN CORPUSCULAR HGB CONC 31.6 g/dl (32.0-36.5); MEAN CORPUSCULAR VOLUME 87.1 fl (80.0-96.0); MONO # 0.5 10^3/uL (0.0-0.8); MONO % 7.5 % (2.0-8.0); NEUTROPHILS # 3.1 10^3/uL (1.5-8.5); NEUTROPHILS % 49.6 % (36.0-66.0); PLATELET COUNT, AUTOMATED 347 10^3/uL (150-450); RED BLOOD COUNT 4.25 10^6/uL (4.00-5.40); WHITE BLOOD COUNT 6.3 10^3/uL (4.0-10.0)
[2021-06-04 16:36] LABS: ALBUMIN 3.5 GM/DL (3.2-5.2); ALT/SGPT 39 U/L (12-78); BILIRUBIN,TOTAL 0.3 MG/DL (0.2-1.0); BLOOD UREA NITROGEN 11 MG/DL (7-18); CALCIUM LEVEL 9.5 MG/DL (8.5-10.1); CARBON DIOXIDE LEVEL 25 MEQ/L (21-32); CHLORIDE LEVEL 106 MEQ/L (98-107); CHOLESTEROL LEVEL 153 MG/DL (<200); GLOMERULAR FILTRATION RATE > 60.0 (>60); GLUCOSE, FASTING 222 MG/DL (70-100); HDL CHOLESTEROL 50 MG/DL (>40); LDL CHOLESTEROL 76 MG/DL (<100); NON-HDL-C 103 MG/DL; POTASSIUM SERUM 4.4 MEQ/L (3.5-5.1); SODIUM LEVEL 139 MEQ/L (136-145); TOTAL PROTEIN 7.2 GM/DL (6.4-8.2); TRIGLYCERIDES LEVEL 137 MG/DL (<150)
[2021-06-04 17:23] LABS: HEMOGLOBIN A1c 9.5 %
== END ==
LOC: M WUC 13:34
PROVIDERS: ATTEND Physician Assistant
DX: Z79.899 Other long term (current) drug therapy (principal)

== ENCOUNTER → 2021-07-14 | Outpatient (REF) ==
[~2021-07-14] MED LIST changes: -D31000TA2 PO; -SEMA3TAB PO; +SEMA3TAB4 PO; +VITA100093 PO
== END ==
LOC: M LAB 09:45
PROVIDERS: ATTEND Nurse Practitioner Adult Health
DX: Z02.1 Encounter for pre-employment examination (principal)

== ENCOUNTER → 2022-07-26 | Outpatient (CLI) | payer MEDICAID, BC, MEDICARE ==
[~2022-07-26] MED LIST changes: +AMOX875T PO; +FLUT50SP17; -FLUTISP; +HUMA100I3 SC; +OZEM2INJ SC; +QUET1TAB17 PO; +SEMA7TAB2 PO; +SIMV-254 PO; -ZOCO40TA PO; +[UNRECOGNIZED DRUG - OTHER]
[2022-07-26 12:52] LABS: BASO % 0.5 % (0.0-1.0); EOS # 0.1 10^3/uL (0.0-0.5); EOS % 0.6 % (0.0-3.0); HEMATOCRIT 34.9 % (36.0-47.0); HEMOGLOBIN 10.9 g/dl (12.0-15.5); LYMPH # 2.2 10^3/uL (1.5-5.0); LYMPH % 27.5 % (24.0-44.0); MEAN CORPUSCULAR HEMOGLOBIN 26.1 pg (27.0-33.0); MEAN CORPUSCULAR HGB CONC 31.2 g/dl (32.0-36.5); MEAN CORPUSCULAR VOLUME 83.7 fl (80.0-96.0); MONO # 0.5 10^3/uL (0.0-0.8); MONO % 5.7 % (2.0-8.0); NEUTROPHILS # 5.2 10^3/uL (1.5-8.5); NEUTROPHILS % 65.4 % (36.0-66.0); PLATELET COUNT, AUTOMATED 419 10^3/uL (150-450); RED BLOOD COUNT 4.17 10^6/uL (4.00-5.40); WHITE BLOOD COUNT 7.9 10^3/uL (4.0-10.0)
[2022-07-26 13:42] LABS: ALBUMIN 3.3 G/DL (3.2-5.2); ALKALINE PHOSPHATASE 70 U/L (46-116); ALT/SGPT 18 U/L (7.0-40); AST/SGOT 15 U/L (<34); BILIRUBIN,TOTAL 0.3 MG/DL (0.3-1.2); BLOOD UREA NITROGEN 13 MG/DL (9-23); CALCIUM LEVEL 8.9 MG/DL (8.5-10.1); CARBON DIOXIDE LEVEL 26 MMOL/L (20-31); CHLORIDE LEVEL 106 MMOL/L (98-107); CHOLESTEROL LEVEL 142 MG/DL (<200); CHOLESTEROL RISK RATIO 2.72 (<5); CREATININE FOR GFR 0.69 MG/DL (0.55-1.30); GLOMERULAR FILTRATION RATE > 60.0 (>60); GLUCOSE, FASTING 149 MG/DL (60-100); HDL CHOLESTEROL 52.2 MG/DL (>40); LDL CHOLESTEROL 63.8 MG/DL (<100); NON-HDL-C 89.8 MG/DL; POTASSIUM SERUM 4.1 MMOL/L (3.5-5.1); SODIUM LEVEL 140 MMOL/L (136-145); TOTAL PROTEIN 6.7 G/DL (5.7-8.2); TRIGLYCERIDES LEVEL 130 MG/DL (<150)
== END ==
LOC: M WUC 08:40
PROVIDERS: ATTEND Physician Assistant
DX: Z79.899 Other long term (current) drug therapy (principal)

== ENCOUNTER 2022-08-18 15:46 | Emergency (ER) | payer MEDICARE, MEDICAID, BC ==
[~2022-08-18] VITALS: Ht 162.6 cm; Wt 78.9 kg
[2022-08-18] MEDS ORDERED: NS 1,000 ML IV ONE (16:35)
[2022-08-18 16:56] LABS: HEMATOCRIT 33.1 % (36.0-47.0); HEMOGLOBIN 10.4 g/dl (12.0-15.5); MEAN CORPUSCULAR HGB CONC 31.4 g/dl (32.0-36.5); MEAN CORPUSCULAR VOLUME 82.8 fl (80.0-96.0); PLATELET COUNT, AUTOMATED 371 10^3/uL (150-450); WHITE BLOOD COUNT 7.5 10^3/uL (4.0-10.0)
[2022-08-18 17:25] LABS: BLOOD UREA NITROGEN 12 MG/DL (9-23); CALCIUM LEVEL 9.4 MG/DL (8.5-10.1); CARBON DIOXIDE LEVEL 24 MMOL/L (20-31); CHLORIDE LEVEL 108 MMOL/L (98-107); CREATININE FOR GFR 0.76 MG/DL (0.55-1.30); GLOMERULAR FILTRATION RATE > 60.0 (>60); GLUCOSE, FASTING 176 MG/DL (60-100); POTASSIUM SERUM 4.4 MMOL/L (3.5-5.1); SODIUM LEVEL 139 MMOL/L (136-145)
[2022-08-18 17:32] LABS: HCG, SERUM QUALITATIVE NEGATIVE (NEGATIVE)
[2022-08-18 18:38] VITALS: BP 130/79
== END 2022-08-18 18:47 | disposition home or self-care (01) ==
LOC: M ED 15:46 → EDBD 15:46 → M ED 18:47
DX: R55 Syncope and collapse (principal); E11.9 Type 2 diabetes mellitus without complications; E78.5 Hyperlipidemia, unspecified; F31.9 Bipolar disorder, unspecified; Z88.8 Allergy status to other drugs, medicaments and biological substances; Z79.899 Other long term (current) drug therapy; Z79.84 Long term (current) use of oral hypoglycemic drugs; Z79.4 Long term (current) use of insulin

== ENCOUNTER 2022-09-21 17:31 | Emergency (ER) | payer MEDICARE, MEDICAID ==
[~2022-09-21] VITALS: Ht 162.6 cm; Wt 77.6 kg
[2022-09-21 17:33] VITALS: TEMP 97.8
[2022-09-21] MEDS ORDERED: ACETAMINOPHEN 500 MG TAB PO ONE (18:20)
[2022-09-21 19:01] LABS: HEMATOCRIT 32.8 % (36.0-47.0); HEMOGLOBIN 10.4 g/dl (12.0-15.5); MEAN CORPUSCULAR HEMOGLOBIN 25.9 pg (27.0-33.0); MEAN CORPUSCULAR HGB CONC 31.7 g/dl (32.0-36.5); MEAN CORPUSCULAR VOLUME 81.8 fl (80.0-96.0); PLATELET COUNT, AUTOMATED 441 10^3/uL (150-450); RED BLOOD COUNT 4.01 10^6/uL (4.00-5.40); WHITE BLOOD COUNT 7.3 10^3/uL (4.0-10.0)
[2022-09-21 19:29] LABS: CK-MB VALUE MASS < 1.0 NG/ML (<3.6)
[2022-09-21 19:30] LABS: ALBUMIN 3.4 G/DL (3.2-5.2); ALKALINE PHOSPHATASE 67 U/L (46-116); ALT/SGPT 17 U/L (7.0-40); AST/SGOT 24 U/L (<34); BILIRUBIN,DIRECT < 0.1 MG/DL (<0.4); BILIRUBIN,TOTAL 0.3 MG/DL (0.3-1.2); BLOOD UREA NITROGEN 15 MG/DL (9-23); CALCIUM LEVEL 8.9 MG/DL (8.5-10.1); CARBON DIOXIDE LEVEL 22 MMOL/L (20-31); CHLORIDE LEVEL 106 MMOL/L (98-107); GLOMERULAR FILTRATION RATE > 60.0 (>60); GLUCOSE, FASTING 168 MG/DL (60-100); POTASSIUM SERUM 4.9 MMOL/L (3.5-5.1); SODIUM LEVEL 138 MMOL/L (136-145)
[2022-09-21 19:33] LABS: THYROID STIMULATING HORMONE 1.385 uIU/ML (0.55-4.78)
[2022-09-21 19:34] LABS: FREE T4 1.08 NG/DL (0.89-1.76)
[2022-09-21 19:35] LABS: CPK CREATINE PHOSPHOKINASE 235 U/L (34-145); MB/CK RELATIVE INDEX 0.42 (< OR =4)
[2022-09-21 19:46] VITALS: O2SAT 100
[2022-09-21 20:39] LABS: APPEARANCE, URINE HAZY (CLEAR); BACTERIA, URINE AUTO 1+ (NEGATIVE); BILIRUBIN, URINE AUTO NEGATIVE (NEGATIVE); BLOOD, URINE BLOOD NEGATIVE (NEGATIVE); CALCIUM OXALATE CRYSTALS SMALL; COLOR, URINE YELLOW (YELLOW); GLUCOSE, URINE (UA) AUTO 1+ mg/dL (NEGATIVE); KETONE, URINE AUTO TRACE mg/dL (NEGATIVE); LEUKOCYTE ESTERASE, URINE AUTO NEGATIVE (NEGATIVE); MUCUS, URINE SMALL (NEGATIVE); NITRITE, URINE AUTO NEGATIVE (NEGATIVE); PROTEIN, URINE AUTO 1+ mg/dL (NEGATIVE); RBC, URINE AUTO 4 /HPF (0-3); SPECIFIC GRAVITY URINE AUTO 1.034 (1.002-1.035); SQUAMOUS EPITHELIAL CELL UR AU 2 /HPF (0-6); WBC, URINE AUTO 4 /HPF (0-3)
[2022-09-21 21:25] VITALS: BP 142/69
== END 2022-09-21 21:34 | disposition home or self-care (01) ==
LOC: M ED 17:31
DX: R05.9 Cough, unspecified (principal); E11.9 Type 2 diabetes mellitus without complications; F31.9 Bipolar disorder, unspecified; F79 Unspecified intellectual disabilities; Z88.8 Allergy status to other drugs, medicaments and biological substances; Z79.899 Other long term (current) drug therapy; Z79.84 Long term (current) use of oral hypoglycemic drugs; Z79.4 Long term (current) use of insulin

== ENCOUNTER 2022-09-23 16:49 | Inpatient (IN) | payer MEDICARE, MEDICAID ==
[~2022-09-23] VITALS: Ht 162.6 cm; Wt 76.5 kg
[2022-09-23 17:44] LABS: HEMATOCRIT 36.2 % (36.0-47.0); HEMOGLOBIN 11.4 g/dl (12.0-15.5); MEAN CORPUSCULAR HEMOGLOBIN 26.3 pg (27.0-33.0); MEAN CORPUSCULAR HGB CONC 31.5 g/dl (32.0-36.5); MEAN CORPUSCULAR VOLUME 83.6 fl (80.0-96.0); PLATELET COUNT, AUTOMATED 486 10^3/uL (150-450); RED BLOOD COUNT 4.33 10^6/uL (4.00-5.40); WHITE BLOOD COUNT 8.7 10^3/uL (4.0-10.0)
[2022-09-23 18:09] LABS: AMPHETAMINES LEVEL URINE NEGATIVE (NEGATIVE); BARBITURATES URINE NEGATIVE (NEGATIVE); BENZODIAZEPINES URINE NEGATIVE (NEGATIVE); CANNABINOIDS URINE NEGATIVE (NEGATIVE); COCAINE METABOLITE URINE NEGATIVE (NEGATIVE); METHADONE URINE NEGATIVE (NEGATIVE); OPIATES URINE NEGATIVE (NEGATIVE); PHENCYCLIDINE URINE NEGATIVE (NEGATIVE)
[2022-09-23 18:11] LABS: ETHYL ALCOHOL (ETHANOL) < 0.003 % (0.000-0.010)
[2022-09-23 18:12] LABS: ACETAMINOPHEN LEVEL < 2.0 UG/ML (10.0-20.0)
[2022-09-23 18:13] LABS: SALICYLATE LEVEL < 3.0 MG/DL (<30)
[2022-09-23 18:16] LABS: ALBUMIN 3.7 G/DL (3.2-5.2); ALKALINE PHOSPHATASE 71 U/L (46-116); ALT/SGPT 19 U/L (7.0-40); AST/SGOT 16 U/L (<34); BILIRUBIN,DIRECT 0.1 MG/DL (<0.4); BILIRUBIN,TOTAL 0.3 MG/DL (0.3-1.2); BLOOD UREA NITROGEN 16 MG/DL (9-23); CALCIUM LEVEL 10.1 MG/DL (8.5-10.1); CARBON DIOXIDE LEVEL 19 MMOL/L (20-31); CHLORIDE LEVEL 105 MMOL/L (98-107); CREATININE FOR GFR 0.79 MG/DL (0.55-1.30); GLOMERULAR FILTRATION RATE > 60.0 (>60); GLUCOSE, FASTING 174 MG/DL (60-100); POTASSIUM SERUM 4.4 MMOL/L (3.5-5.1); SODIUM LEVEL 138 MMOL/L (136-145); THYROID STIMULATING HORMONE 0.869 uIU/ML (0.55-4.78); TOTAL PROTEIN 7.8 G/DL (5.7-8.2)
[2022-09-23 18:24] LABS: HCG, SERUM QUALITATIVE NEGATIVE (NEGATIVE)
[2022-09-23] MEDS ORDERED: MAALOX 30 ML SUSP *UDC PO PRN (21:00)
[2022-09-23] MEDS ORDERED: ACETAMINOPHEN TAB 650MG DOSE (2X325MG) PO PRN (21:00)
[2022-09-23] MEDS ORDERED: traZODone 50 MG TAB PO PRN (21:00)
[2022-09-23] MEDS ORDERED: MOM 30ML SUSPENSION UDC PO PRN (21:00)
[2022-09-23] MEDS ORDERED: FLUO10CA18 PO (21:43)
[2022-09-23] MEDS ORDERED: FLUO20CA22 PO (21:43)
[2022-09-23] MEDS ORDERED: ARIP1TAB10 PO (21:43)
[2022-09-23] MEDS ORDERED: SEMA2PEN INJ (21:44)
[2022-09-23] MEDS ORDERED: DAYSTAB PO (21:44)
[2022-09-23] MEDS ORDERED: HOME MED LIST COMPLETE! XX SCH (21:45)
[2022-09-23 22:52] VITALS: BP 134/87; TEMP 97.6; O2SAT 100
[2022-09-24] MEDS ORDERED: UNRESOLVED PATIENT OWN MED ORDER XX SCH (00:01)
[2022-09-24 06:30] VITALS: BP 125/60; TEMP 97.6; O2SAT 99
[2022-09-24] MEDS ORDERED: DEXTROSE 50% 50ML SYRINGE IV PRN (08:45)
[2022-09-24] MEDS ORDERED: GLUCAGON INJ 1MG VIAL SC PRN (08:45)
[2022-09-24] MEDS ORDERED: GLUCOSE 4GM CHEW TABLET PO PRN (08:45)
[2022-09-24] MEDS ORDERED: METF10004 PO (10:35)
[2022-09-24] MEDS: metFORMIN (GLUCOPHAGE) 1000MG TABLET PO SCH ×2 (11:50→20:13)
[2022-09-24] MEDS: INSULIN LISPRO (NovoLOG) PER UNIT SC SCH ×3 (11:57→20:16)
[2022-09-24] MEDS: DAYSEE PO SCH (12:00)
[2022-09-24] MEDS: hydrOXYzine 50 MG TAB PO PRN (15:12)
[2022-09-24] MEDS: VITAMIN D 1,000 INTERNATIONAL UNITS TABLET PO SCH (20:13)
[2022-09-24] MEDS: ARIPiprazole 15 MG TAB (AbiLIFY) PO SCH (20:13)
[2022-09-24] MEDS: FLUoxetine 10 MG CAP PO SCH (20:13)
[2022-09-24] MEDS: SIMVASTATIN 40 MG TAB PO SCH (20:14)
[2022-09-24] MEDS: traZODone 50 MG TAB PO SCH (20:14)
[2022-09-24] MEDS: FLUoxetine 20MG CAP PO SCH (20:14)
[2022-09-24] MEDS: LEVEMIR (INSULIN DETEMIR) 1 UNITS/0.01ML SC SCH (20:17)
[2022-09-25] VITALS (9 sets, daily range): BP systolic 116–160; BP diastolic 67–121; TEMP 97–98.2; O2SAT 97–100
[2022-09-25] MEDS: INSULIN LISPRO (NovoLOG) PER UNIT SC SCH ×4 (06:52→21:00)
[2022-09-25 07:09] LABS: CHOLESTEROL RISK RATIO 3.06 (<5); HDL CHOLESTEROL 43.1 MG/DL (>40); LDL CHOLESTEROL 51.1 MG/DL (<100); NON-HDL-C 88.9 MG/DL
[2022-09-25] MEDS: DAYSEE PO SCH (07:43)
[2022-09-25] MEDS: metFORMIN (GLUCOPHAGE) 1000MG TABLET PO SCH ×2 (07:44→17:47)
[2022-09-25] MEDS: OLANZapine ORAL DISINTEGRATING TAB 5MG PO PRN (12:26)
[2022-09-25] MEDS ORDERED: LORazepam 2 MG/ML 1ML VIAL IM STA (12:34)
[2022-09-25] MEDS ORDERED: OLANZapine INTRAMUSCULAR 10MG VIAL IM PRN (12:55)
[2022-09-25] MEDS: SIMVASTATIN 40 MG TAB PO SCH (21:09)
[2022-09-25] MEDS: FLUoxetine 20MG CAP PO SCH (21:10)
[2022-09-25] MEDS: VITAMIN D 1,000 INTERNATIONAL UNITS TABLET PO SCH (21:10)
[2022-09-25] MEDS: ARIPiprazole 15 MG TAB (AbiLIFY) PO SCH (21:10)
[2022-09-25] MEDS: FLUoxetine 10 MG CAP PO SCH (21:10)
[2022-09-25] MEDS: traZODone 50 MG TAB PO SCH (21:10)
[2022-09-25] MEDS: LEVEMIR (INSULIN DETEMIR) 1 UNITS/0.01ML SC SCH (21:10)
[2022-09-26 06:29] VITALS: BP 137/72; TEMP 98.5; O2SAT 99
[2022-09-26] MEDS: metFORMIN (GLUCOPHAGE) 1000MG TABLET PO SCH ×2 (07:49→17:12)
[2022-09-26] MEDS: OLANZapine ORAL DISINTEGRATING TAB 5MG PO PRN ×2 (07:50→17:56)
[2022-09-26] MEDS: hydrOXYzine 50 MG TAB PO PRN (07:50)
[2022-09-26] MEDS: INSULIN LISPRO (NovoLOG) PER UNIT SC SCH ×4 (07:57→20:32)
[2022-09-26] MEDS: DAYSEE PO SCH (08:00)
[2022-09-26] MEDS ORDERED: LORazepam 2 MG/ML 1ML VIAL IM STA (12:32)
[2022-09-26 18:28] VITALS: BP 150/90; TEMP 97.1; O2SAT 100
[2022-09-26] MEDS ORDERED: chlorproMAZINE INJ 50MG/2ML AMP IM STA (20:03)
[2022-09-26] MEDS: FLUoxetine 10 MG CAP PO SCH (20:31)
[2022-09-26] MEDS: LEVEMIR (INSULIN DETEMIR) 1 UNITS/0.01ML SC SCH (20:31)
[2022-09-26] MEDS: ARIPiprazole 15 MG TAB (AbiLIFY) PO SCH (20:31)
[2022-09-26] MEDS: SIMVASTATIN 40 MG TAB PO SCH (20:31)
[2022-09-26] MEDS: VITAMIN D 1,000 INTERNATIONAL UNITS TABLET PO SCH (20:31)
[2022-09-26] MEDS: traZODone 50 MG TAB PO SCH (20:31)
[2022-09-26] MEDS: FLUoxetine 20MG CAP PO SCH (20:31)
[2022-09-27] MEDS: INSULIN LISPRO (NovoLOG) PER UNIT SC SCH (06:38)
[2022-09-27] MEDS: hydrOXYzine 50 MG TAB PO PRN (06:56)
[2022-09-27] MEDS: metFORMIN (GLUCOPHAGE) 1000MG TABLET PO SCH (08:33)
[2022-09-27] MEDS: DAYSEE PO SCH (08:34)
== END 2022-09-27 11:56 | disposition home or self-care (01) | DRG 881 ==
LOC: M ED 16:49 → M ED INP 20:57 → M PSY 21:40
PROVIDERS: ADMIT Student in an Organized Health Care Education/Training Program; ATTEND Student in an Organized Health Care Education/Training Program
DX: F32.A Depression, unspecified (principal); R45.851 Suicidal ideations; F60.3 Borderline personality disorder; F79 Unspecified intellectual disabilities; F43.20 Adjustment disorder, unspecified; E11.9 Type 2 diabetes mellitus without complications; F17.290 Nicotine dependence, other tobacco product, uncomplicated; F31.9 Bipolar disorder, unspecified; Z88.8 Allergy status to other drugs, medicaments and biological substances; Z79.899 Other long term (current) drug therapy; Z79.84 Long term (current) use of oral hypoglycemic drugs; Z79.4 Long term (current) use of insulin; Z91.52 Personal history of nonsuicidal self-harm; Z78.1 Physical restraint status

== ENCOUNTER → 2023-04-06 | Outpatient (REF) | payer MEDICARE, MEDICAID ==
[~2023-04-06] MED LIST changes: +ARIP1TAB10 PO; +DAYSTAB PO; +DEXT4TAB9 PO; +DOCU100C16 PO; +FLUC150T9 PO; -FLUT50SP17; +FLUTISP; +HALO5TAB33 PO; +LORA-1041 PO; +SEMA2PEN SC
== END ==
LOC: M SFHCWAGY 10:27
PROVIDERS: ATTEND Nurse Practitioner Family
DX: Z12.4 Encounter for screening for malignant neoplasm of cervix (principal); R87.615 Unsatisfactory cytologic smear of cervix
CPT/HCPCS: 87624; G0123

== ENCOUNTER → 2023-04-26 | Outpatient (REF) | payer MEDICARE, MEDICAID | LOC: M SFHCWAGY 15:22 | PROVIDERS: ATTEND Nurse Practitioner Family | DX: Z12.4 Encounter for screening for malignant neoplasm of cervix (principal) ==

== ENCOUNTER 2023-10-04 14:30 | Emergency (ER) | payer MEDICARE, MEDICAID ==
[~2023-10-04] VITALS: Ht 162.6 cm; Wt 75.0 kg
[~2023-10-04 14:30] MED LIST changes: +FLUO-290 PO; +FLUO-365 PO; -FLUO10CA18 PO; -FLUO20CA22 PO
[2023-10-04 19:30] LABS: BASO % 0.5 % (0.0-1.0); EOS % 0.5 % (0.0-3.0); HEMATOCRIT 38.1 % (36.0-47.0); HEMOGLOBIN 11.9 g/dl (12.0-15.5); LYMPH # 3.1 10^3/uL (1.5-5.0); LYMPH % 35.2 % (24.0-44.0); MEAN CORPUSCULAR HEMOGLOBIN 25.1 pg (27.0-33.0); MEAN CORPUSCULAR HGB CONC 31.2 g/dl (32.0-36.5); MEAN CORPUSCULAR VOLUME 80.4 fl (80.0-96.0); MONO # 0.5 10^3/uL (0.0-0.8); MONO % 6.1 % (2.0-8.0); NEUTROPHILS % 57.5 % (36.0-66.0); PLATELET COUNT, AUTOMATED 493 10^3/uL (150-450); RED BLOOD COUNT 4.74 10^6/uL (4.00-5.40); WHITE BLOOD COUNT 8.7 10^3/uL (4.0-10.0)
[2023-10-04 19:46] LABS: ALBUMIN 3.4 G/DL (3.2-5.2); ALKALINE PHOSPHATASE 79 U/L (46-116); ALT/SGPT 34 U/L (7.0-40); AST/SGOT 19 U/L (<34); BILIRUBIN,TOTAL 0.3 MG/DL (0.3-1.2); BLOOD UREA NITROGEN 11 MG/DL (9-23); CARBON DIOXIDE LEVEL 24 MMOL/L (20-31); CHLORIDE LEVEL 109 MMOL/L (98-107); CREATININE FOR GFR 0.72 MG/DL (0.55-1.30); GLOMERULAR FILTRATION RATE > 60.0 (>60); GLUCOSE, FASTING 141 MG/DL (60-100); POTASSIUM SERUM 4.3 MMOL/L (3.5-5.1); SODIUM LEVEL 141 MMOL/L (136-145); TOTAL PROTEIN 7.3 G/DL (5.7-8.2)
[2023-10-04 19:50] LABS: HCG, SERUM QUALITATIVE NEGATIVE (NEGATIVE)
[2023-10-04] MEDS: ACETAMINOPHEN *IV* 1,000 MG in IV 1 EA IV ONE (20:55)
[2023-10-04] MEDS: ONDANSETRON 4MG 2ML VIAL IV ONE (20:55)
[2023-10-04] MEDS ORDERED: ISOVUE-370 76% 100ML VIAL As Ordered ONE (20:56)
[2023-10-04 22:54] VITALS: BP 120/74; TEMP 98.1; O2SAT 99
== END 2023-10-04 22:58 | disposition home or self-care (01) ==
LOC: M ED 14:30
DX: A09 Infectious gastroenteritis and colitis, unspecified (principal); R51.9 Headache, unspecified; E11.9 Type 2 diabetes mellitus without complications; Z88.8 Allergy status to other drugs, medicaments and biological substances; Z79.2 Long term (current) use of antibiotics; Z79.4 Long term (current) use of insulin; Z79.84 Long term (current) use of oral hypoglycemic drugs; Z79.899 Other long term (current) drug therapy
CPT/HCPCS: 70450; 71045; 74177; 80053; 81001; 83690; 84703; 85025; 87486; 87581; 87633; 87798; 93005; 96365; 96366; 96374; 99284; J0131; J2405; Q9967

== ENCOUNTER → 2023-12-14 | Outpatient (CLI) | payer MEDICARE, MEDICAID ==
[2023-12-14 10:38] LABS: BASO % 0.4 % (0.0-1.0); EOS # 0.1 10^3/uL (0.0-0.5); EOS % 0.7 % (0.0-3.0); HEMATOCRIT 35.7 % (36.0-47.0); HEMOGLOBIN 11.2 g/dl (12.0-15.5); LYMPH % 27.4 % (24.0-44.0); MEAN CORPUSCULAR HEMOGLOBIN 25.2 pg (27.0-33.0); MEAN CORPUSCULAR HGB CONC 31.4 g/dl (32.0-36.5); MEAN CORPUSCULAR VOLUME 80.4 fl (80.0-96.0); MONO # 0.4 10^3/uL (0.0-0.8); MONO % 5.8 % (2.0-8.0); NEUTROPHILS # 4.8 10^3/uL (1.5-8.5); NEUTROPHILS % 65.4 % (36.0-66.0); PLATELET COUNT, AUTOMATED 460 10^3/uL (150-450); RED BLOOD COUNT 4.44 10^6/uL (4.00-5.40); WHITE BLOOD COUNT 7.3 10^3/uL (4.0-10.0)
[2023-12-14 11:05] LABS: ALBUMIN 3.1 G/DL (3.2-5.2); ALKALINE PHOSPHATASE 76 U/L (46-116); ALT/SGPT 16 U/L (7.0-40); AST/SGOT 12 U/L (<34); BILIRUBIN,TOTAL 0.3 MG/DL (0.3-1.2); BLOOD UREA NITROGEN 10 MG/DL (9-23); CALCIUM LEVEL 9.2 MG/DL (8.5-10.1); CARBON DIOXIDE LEVEL 25 MMOL/L (20-31); CHLORIDE LEVEL 107 MMOL/L (98-107); CHOLESTEROL LEVEL 178 MG/DL (<200); CHOLESTEROL RISK RATIO 3.33 (<5); CREATININE FOR GFR 0.75 MG/DL (0.55-1.30); GLOMERULAR FILTRATION RATE > 60.0 (>60); GLUCOSE, FASTING 83 MG/DL (60-100); HDL CHOLESTEROL 53.4 MG/DL (>40); LDL CHOLESTEROL 87.4 MG/DL (<100); NON-HDL-C 124.6 MG/DL; POTASSIUM SERUM 4.4 MMOL/L (3.5-5.1); SODIUM LEVEL 139 MMOL/L (136-145); TOTAL PROTEIN 7.1 G/DL (5.7-8.2); TRIGLYCERIDES LEVEL 186 MG/DL (<150)
== END ==
LOC: M WUC 08:14
PROVIDERS: ATTEND Physician Assistant
DX: Z79.899 Other long term (current) drug therapy (principal)

== ENCOUNTER 2024-01-04 14:29 | Emergency (ER) | payer MEDICARE, MEDICAID ==
[~2024-01-04] VITALS: Ht 162.6 cm; Wt 73.6 kg
[2024-01-04] MEDS: KETOROLAC 30 MG/ML 1ML VIAL IV ONE (16:22)
[2024-01-04] MEDS: NS 1,000 ML IV ONE (16:22)
[2024-01-04 16:29] LABS: BASO % 0.3 % (0.0-1.0); EOS % 0.4 % (0.0-3.0); HEMATOCRIT 33.2 % (36.0-47.0); HEMOGLOBIN 10.5 g/dl (12.0-15.5); LYMPH # 2.5 10^3/uL (1.5-5.0); LYMPH % 33.3 % (24.0-44.0); MEAN CORPUSCULAR HEMOGLOBIN 25.4 pg (27.0-33.0); MEAN CORPUSCULAR HGB CONC 31.6 g/dl (32.0-36.5); MEAN CORPUSCULAR VOLUME 80.2 fl (80.0-96.0); MONO # 0.5 10^3/uL (0.0-0.8); MONO % 6.7 % (2.0-8.0); NEUTROPHILS # 4.4 10^3/uL (1.5-8.5); NEUTROPHILS % 59.2 % (36.0-66.0); PLATELET COUNT, AUTOMATED 400 10^3/uL (150-450); RED BLOOD COUNT 4.14 10^6/uL (4.00-5.40); WHITE BLOOD COUNT 7.4 10^3/uL (4.0-10.0)
[2024-01-04 16:42] LABS: INR 1.1; PARTIAL THROMBOPLASTIN TIME 25.8 SECONDS (24.8-34.2); PROTHROMBIN TIME 13.9 SECONDS (12.5-14.5)
[2024-01-04 16:52] LABS: LIPASE 108 U/L (12-53)
[2024-01-04 16:54] LABS: CPK CREATINE PHOSPHOKINASE 73 U/L (34-145)
[2024-01-04 16:55] LABS: ALBUMIN 2.9 G/DL (3.2-5.2); ALKALINE PHOSPHATASE 65 U/L (46-116); ALT/SGPT 15 U/L (7.0-40); AST/SGOT 9 U/L (<34); BILIRUBIN,DIRECT < 0.1 MG/DL (<0.4); BILIRUBIN,TOTAL 0.3 MG/DL (0.3-1.2); BLOOD UREA NITROGEN 8 MG/DL (9-23); CARBON DIOXIDE LEVEL 21 MMOL/L (20-31); CHLORIDE LEVEL 109 MMOL/L (98-107); CK-MB VALUE MASS < 1.0 NG/ML (<3.6); CREATININE FOR GFR 0.79 MG/DL (0.55-1.30); GLOMERULAR FILTRATION RATE > 60.0 (>60); GLUCOSE, FASTING 167 MG/DL (60-100); MB/CK RELATIVE INDEX 1.36 (< OR =4); SODIUM LEVEL 138 MMOL/L (136-145); TOTAL PROTEIN 6.5 G/DL (5.7-8.2)
[2024-01-04] MEDS ORDERED: ISOVUE-370 76% 100ML VIAL As Ordered ONE (17:11)
[2024-01-04] MEDS ORDERED: MIRA3350 PO (20:03)
[2024-01-04 20:21] VITALS: BP 127/69; TEMP 97.8; O2SAT 99
== END 2024-01-04 20:20 | disposition home or self-care (01) ==
LOC: M ED 14:29
DX: K85.90 Acute pancreatitis without necrosis or infection, unspecified (principal); E86.0 Dehydration; K57.92 Diverticulitis of intestine, part unspecified, without perforation or abscess without bleeding; E11.9 Type 2 diabetes mellitus without complications; E78.5 Hyperlipidemia, unspecified; Z88.8 Allergy status to other drugs, medicaments and biological substances; Z79.899 Other long term (current) drug therapy; Z79.4 Long term (current) use of insulin
CPT/HCPCS: 71045; 74177; 80048; 80076; 81001; 82550; 82553; 83605; 83690; 84484; 85025; 85610; 85730; 87486; 87581; 87633; 87798; 93005; 96361; 96374; 99284; J1885; Q9967

== ENCOUNTER → 2024-01-09 | Outpatient (REF) | payer MEDICARE, MEDICAID ==
[~2024-01-09] MED LIST changes: +MIRA3350 PO
== END ==
LOC: M LAB REF 16:41
PROVIDERS: ATTEND Nurse Practitioner Family
DX: R74.8 Abnormal levels of other serum enzymes (principal); K59.00 Constipation, unspecified

== ENCOUNTER 2024-02-08 20:08 | Emergency (ER) | payer MEDICARE, MEDICAID ==
[~2024-02-08] VITALS: Ht 162.6 cm; Wt 79.2 kg
[2024-02-08 22:05] VITALS: BP 139/89; TEMP 98.3; O2SAT 99
[2024-02-08] MEDS ORDERED: BENZ200C70 PO (22:32)
[2024-02-08] MEDS ORDERED: PRED20TA PO (22:32)
== END 2024-02-08 22:47 | disposition home or self-care (01) ==
LOC: M ED 20:08
DX: J20.9 Acute bronchitis, unspecified (principal); E10.9 Type 1 diabetes mellitus without complications; Z88.8 Allergy status to other drugs, medicaments and biological substances; Z79.2 Long term (current) use of antibiotics; Z79.4 Long term (current) use of insulin; Z79.84 Long term (current) use of oral hypoglycemic drugs; Z79.899 Other long term (current) drug therapy

== ENCOUNTER → 2024-03-06 | Outpatient (REF) | payer MEDICARE, MEDICAID ==
[~2024-03-06] MED LIST changes: +BENZ200C70 PO; +PRED20TA PO
== END ==
LOC: M LAB REF 16:10
PROVIDERS: ATTEND Nurse Practitioner Family
DX: R19.7 Diarrhea, unspecified (principal)

== ENCOUNTER 2024-03-11 15:18 | Emergency (ER) | payer MEDICARE, MEDICAID ==
[~2024-03-11] VITALS: Ht 162.6 cm; Wt 80.4 kg
[2024-03-11 17:10] VITALS: BP 140/83; TEMP 98.7; O2SAT 99
[2024-03-11 17:10] LABS: BASO % 0.6 % (0.0-1.0); EOS # 0.1 10^3/uL (0.0-0.5); HEMATOCRIT 34.6 % (36.0-47.0); HEMOGLOBIN 10.9 g/dl (12.0-15.5); LYMPH # 2.7 10^3/uL (1.5-5.0); LYMPH % 38.8 % (24.0-44.0); MEAN CORPUSCULAR HEMOGLOBIN 25.3 pg (27.0-33.0); MEAN CORPUSCULAR HGB CONC 31.5 g/dl (32.0-36.5); MEAN CORPUSCULAR VOLUME 80.5 fl (80.0-96.0); MONO # 0.5 10^3/uL (0.0-0.8); MONO % 6.8 % (2.0-8.0); NEUTROPHILS # 3.7 10^3/uL (1.5-8.5); NEUTROPHILS % 52.5 % (36.0-66.0); PLATELET COUNT, AUTOMATED 458 10^3/uL (150-450); WHITE BLOOD COUNT 7.1 10^3/uL (4.0-10.0)
[2024-03-11 17:32] LABS: HCG, SERUM QUALITATIVE NEGATIVE (NEGATIVE); LIPASE 48 U/L (12-53)
[2024-03-11 17:34] LABS: ALBUMIN 2.8 G/DL (3.2-5.2); ALKALINE PHOSPHATASE 78 U/L (35-104); ALT/SGPT 15 U/L (7.0-40); AST/SGOT 10 U/L (<34); BILIRUBIN,DIRECT < 0.1 MG/DL (<0.4); BILIRUBIN,TOTAL 0.2 MG/DL (0.3-1.2); BLOOD UREA NITROGEN 10 MG/DL (9-23); CALCIUM LEVEL 9.5 MG/DL (8.5-10.1); CARBON DIOXIDE LEVEL 22 MMOL/L (20-31); CHLORIDE LEVEL 105 MMOL/L (98-107); CREATININE FOR GFR 0.62 MG/DL (0.55-1.30); GLOMERULAR FILTRATION RATE > 60.0 (>60); GLUCOSE, FASTING 265 MG/DL (60-100); SODIUM LEVEL 138 MMOL/L (136-145); TOTAL PROTEIN 6.7 G/DL (5.7-8.2)
[2024-03-11] MEDS: KETOROLAC 30 MG/ML 1ML VIAL IV ONE (17:55)
[2024-03-11] MEDS: ONDANSETRON 4MG 2ML VIAL IV ONE (17:55)
[2024-03-11] MEDS ORDERED: ISOVUE-370 76% 100ML VIAL As Ordered ONE (18:02)
[2024-03-11 20:46] LABS: RSV AMPLIFICATION NEGATIVE (NEGATIVE)
[2024-03-11] MEDS: FLEET ENEMA PR PRN (20:53)
== END 2024-03-11 21:40 | disposition home or self-care (01) ==
LOC: M ED 15:18
DX: K59.00 Constipation, unspecified (principal); E11.9 Type 2 diabetes mellitus without complications; F10.10 Alcohol abuse, uncomplicated; Z88.8 Allergy status to other drugs, medicaments and biological substances; Z79.4 Long term (current) use of insulin; Z79.52 Long term (current) use of systemic steroids; Z79.899 Other long term (current) drug therapy
CPT/HCPCS: 74177; 80048; 80076; 83690; 84703; 85025; 87631; 96374; 99284; J1885; J2405; Q9967

== ENCOUNTER 2024-04-02 17:15 | Inpatient (IN) | payer MEDICARE, MEDICAID ==
[~2024-04-02] VITALS: Ht 162.6 cm; Wt 75.0 kg
[2024-04-02] MEDS: INSULIN LISPRO (NovoLOG) PER UNIT SC SCH ×2 (17:30→21:08)
[2024-04-02 18:02] LABS: HEMATOCRIT 37.6 % (36.0-47.0); HEMOGLOBIN 11.8 g/dl (12.0-15.5); MEAN CORPUSCULAR HEMOGLOBIN 25.4 pg (27.0-33.0); MEAN CORPUSCULAR HGB CONC 31.4 g/dl (32.0-36.5); PLATELET COUNT, AUTOMATED 415 10^3/uL (150-450); RED BLOOD COUNT 4.64 10^6/uL (4.00-5.40); WHITE BLOOD COUNT 7.8 10^3/uL (4.0-10.0)
[2024-04-02 18:31] LABS: AMPHETAMINES LEVEL URINE NEGATIVE (NEGATIVE)
[2024-04-02 18:32] LABS: BARBITURATES URINE NEGATIVE (NEGATIVE); BENZODIAZEPINES URINE NEGATIVE (NEGATIVE); CANNABINOIDS URINE NEGATIVE (NEGATIVE); COCAINE METABOLITE URINE NEGATIVE (NEGATIVE); METHADONE URINE NEGATIVE (NEGATIVE); OPIATES URINE NEGATIVE (NEGATIVE); PHENCYCLIDINE URINE NEGATIVE (NEGATIVE)
[2024-04-02 18:34] LABS: ETHYL ALCOHOL (ETHANOL) < 0.003 % (0.000-0.010)
[2024-04-02 18:35] LABS: ALBUMIN 3.2 G/DL (3.2-5.2); ALKALINE PHOSPHATASE 71 U/L (35-104); ALT/SGPT 22 U/L (7.0-40); AST/SGOT 18 U/L (<34); BILIRUBIN,DIRECT < 0.1 MG/DL (<0.4); BILIRUBIN,TOTAL 0.2 MG/DL (0.3-1.2); BLOOD UREA NITROGEN 14 MG/DL (9-23); CALCIUM LEVEL 10.1 MG/DL (8.5-10.1); CARBON DIOXIDE LEVEL 23 MMOL/L (20-31); CHLORIDE LEVEL 106 MMOL/L (98-107); CREATININE FOR GFR 0.65 MG/DL (0.55-1.30); GLOMERULAR FILTRATION RATE > 60.0 (>60); GLUCOSE, FASTING 279 MG/DL (60-100); POTASSIUM SERUM 3.9 MMOL/L (3.5-5.1); SALICYLATE LEVEL < 3.0 MG/DL (<30); SODIUM LEVEL 141 MMOL/L (136-145); TOTAL PROTEIN 7.1 G/DL (5.7-8.2)
[2024-04-02 18:37] LABS: THYROID STIMULATING HORMONE 1.498 uIU/ML (0.55-4.78)
[2024-04-02 18:47] LABS: HCG, SERUM QUALITATIVE NEGATIVE (NEGATIVE)
[2024-04-02] MEDS: VITAMIN D 1,000 INTERNATIONAL UNITS TABLET PO SCH (19:29)
[2024-04-02] MEDS: metFORMIN (GLUCOPHAGE) 1000MG TABLET PO SCH (19:29)
[2024-04-02] MEDS ORDERED: METF-838 PO (19:32)
[2024-04-02] MEDS ORDERED: HOME MED LIST COMPLETE! XX SCH (20:55)
[2024-04-02] MEDS: LEVEMIR (INSULIN DETEMIR) 1 UNITS/0.01ML SC SCH (21:06)
[2024-04-02] MEDS: FLUoxetine 10 MG CAP PO SCH (21:08)
[2024-04-02] MEDS: ARIPiprazole 10 MG TAB PO SCH (21:08)
[2024-04-02] MEDS: SIMVASTATIN 40 MG TAB PO SCH (21:08)
[2024-04-02] MEDS: traZODone 50 MG TAB PO SCH (21:08)
[2024-04-02] MEDS: DOCUSATE SODIUM 100MG CAPSULE PO SCH (21:08)
[2024-04-02] MEDS ORDERED: MAALOX 30 ML SUSP *UDC PO PRN (23:50)
[2024-04-02] MEDS ORDERED: MOM 30ML SUSPENSION UDC PO PRN (23:50)
[2024-04-02] MEDS ORDERED: IBUPROFEN 400MG TAB PO PRN (23:50)
[2024-04-02] MEDS ORDERED: ACETAMINOPHEN 325 MG TAB PO PRN (23:50)
[2024-04-03 01:07] VITALS: BP 121/78; TEMP 97; O2SAT 99
[2024-04-03] MEDS ORDERED: GLUCOSE 4 GM CHEW PO PRN (05:35)
[2024-04-03] MEDS ORDERED: DEXTROSE 50% 50ML SYRINGE IV PRN (05:35)
[2024-04-03] MEDS ORDERED: GLUCAGON INJ 1MG VIAL SC PRN (05:35)
[2024-04-03 06:25] VITALS: BP 140/84; TEMP 97.6; O2SAT 100
[2024-04-03] MEDS: INSULIN LISPRO (NovoLOG) PER UNIT SC SCH ×2 (06:58→21:43)
[2024-04-03] MEDS ORDERED: LORATADINE 10 MG TAB PO PRN (08:55)
[2024-04-03] MEDS ORDERED: UNRESOLVED PATIENT OWN MED ORDER XX SCH (09:00)
[2024-04-03] MEDS: metFORMIN (GLUCOPHAGE) 1000MG TABLET PO SCH (09:21)
[2024-04-03] MEDS: diphenhydrAMINE 25MG CAP PO PRN (09:21)
[2024-04-03] MEDS: DOCUSATE SODIUM 100MG CAPSULE PO SCH (09:21)
[2024-04-03] MEDS: DAYSEE PO SCH (11:05)
[2024-04-03 15:24] VITALS: BP 136/90; TEMP 97.9; O2SAT 100
[2024-04-03] MEDS: VITAMIN D 1,000 INTERNATIONAL UNITS TABLET PO SCH (16:11)
[2024-04-03] MEDS: SIMVASTATIN 40 MG TAB PO SCH (20:54)
[2024-04-03] MEDS: ARIPiprazole 10 MG TAB PO SCH (20:54)
[2024-04-03] MEDS: FLUoxetine 10 MG CAP PO SCH (20:54)
[2024-04-03] MEDS: traZODone 50 MG TAB PO PRN (20:54)
[2024-04-03] MEDS: LEVEMIR (INSULIN DETEMIR) 1 UNITS/0.01ML SC SCH (21:42)
[2024-04-04] MEDS: hydrOXYzine 50 MG TAB PO PRN (06:46)
[2024-04-04 06:59] VITALS: BP 148/98; TEMP 97; O2SAT 100
[2024-04-04] MEDS: CIPRODEX OTIC SUSP 7.5ML AU SCH (08:06)
[2024-04-04] MEDS ORDERED: CIPR7.5D2 AU (10:42)
== END 2024-04-04 12:15 | disposition home or self-care (01) | DRG 885 ==
LOC: M ED 17:15 → M ED INP 23:55 → M PSY 04-03 01:02
PROVIDERS: ADMIT Psychiatry & Neurology Neurology; ATTEND Psychiatry & Neurology Psychiatry
DX: F31.9 Bipolar disorder, unspecified (principal); F60.3 Borderline personality disorder; F79 Unspecified intellectual disabilities; Z79.4 Long term (current) use of insulin; Z79.899 Other long term (current) drug therapy; Z88.8 Allergy status to other drugs, medicaments and biological substances; E11.9 Type 2 diabetes mellitus without complications; E78.5 Hyperlipidemia, unspecified; F17.290 Nicotine dependence, other tobacco product, uncomplicated; H92.03 Otalgia, bilateral

== ENCOUNTER → 2024-04-25 | Outpatient (REF) | payer MEDICARE, MEDICAID ==
[~2024-04-25] MED LIST changes: +CIPR7.5D2 AU; +METF-838 PO
[2024-04-25 18:30] LABS: RSV AMPLIFICATION NEGATIVE (NEGATIVE)
== END ==
LOC: M LAB REF 16:00
PROVIDERS: ATTEND Nurse Practitioner Family
DX: R06.02 Shortness of breath (principal)

== ENCOUNTER → 2024-06-12 | Outpatient (REF) | payer MEDICARE, MEDICAID ==
[2024-06-12 13:46] LABS: APPEARANCE, URINE CLOUDY (CLEAR); BACTERIA, URINE AUTO NEGATIVE (NEGATIVE); BILIRUBIN, URINE AUTO NEGATIVE (NEGATIVE); BLOOD, URINE BLOOD NEGATIVE (NEGATIVE); CALCIUM OXALATE CRYSTALS MODERATE; COLOR, URINE YELLOW (YELLOW); GLUCOSE, URINE (UA) AUTO 3+ mg/dL (NEGATIVE); KETONE, URINE AUTO TRACE mg/dL (NEGATIVE); LEUKOCYTE ESTERASE, URINE AUTO NEGATIVE (NEGATIVE); MUCUS, URINE SMALL (NEGATIVE); NITRITE, URINE AUTO NEGATIVE (NEGATIVE); PROTEIN, URINE AUTO 2+ mg/dL (NEGATIVE); RBC, URINE AUTO 0 /HPF (0-3); SPECIFIC GRAVITY URINE AUTO 1.029 (1.002-1.035); SQUAMOUS EPITHELIAL CELL UR AU 9 /HPF (0-6); UROBILINOGEN, URINE AUTO 0.2 mg/dL (0.0-2.0); WBC, URINE AUTO 1 /HPF (0-3)
== END ==
LOC: M LAB REF 12:32
PROVIDERS: ATTEND Physician Assistant Medical
DX: N39.0 Urinary tract infection, site not specified (principal)

== ENCOUNTER 2024-08-01 11:56 | Emergency (ER) | payer MEDICARE, MEDICAID ==
[~2024-08-01] VITALS: Ht 162.6 cm; Wt 79.1 kg
[2024-08-01 13:45] VITALS: BP 116/69; TEMP 98.2; O2SAT 99
== END 2024-08-01 13:52 | disposition home or self-care (01) ==
LOC: EDBD 11:56 → M ED 11:56
DX: R03.0 Elevated blood-pressure reading, without diagnosis of hypertension (principal); E11.9 Type 2 diabetes mellitus without complications; E78.5 Hyperlipidemia, unspecified; Z88.8 Allergy status to other drugs, medicaments and biological substances; Z79.2 Long term (current) use of antibiotics; Z79.4 Long term (current) use of insulin; Z79.84 Long term (current) use of oral hypoglycemic drugs; Z79.899 Other long term (current) drug therapy

== ENCOUNTER → 2024-09-03 | Outpatient (CLI) | payer MEDICARE, MEDICAID ==
[2024-09-03 13:26] LABS: CHOLESTEROL RISK RATIO 3.08 (<5); HDL CHOLESTEROL 50.9 MG/DL (>40); LDL CHOLESTEROL 59.3 MG/DL (<100); NON-HDL-C 106.1 MG/DL; THYROID STIMULATING HORMONE 1.509 uIU/ML (0.55-4.78)
[2024-09-03 13:39] LABS: MAU/CREAT RATIO 5.3 MCG/MG (0.0-30.0)
== END ==
LOC: M WUC 08:04
PROVIDERS: ATTEND Physician Assistant
DX: E11.65 Type 2 diabetes mellitus with hyperglycemia (principal); E55.9 Vitamin D deficiency, unspecified; Z79.4 Long term (current) use of insulin

== ENCOUNTER → 2024-12-04 | Outpatient (CLI) | payer MEDICARE, MEDICAID ==
[2024-12-04 12:43] LABS: ALT/SGPT 24 U/L (7.0-40); AST/SGOT 23 U/L (<34); CALCIUM LEVEL 9.0 MG/DL (8.5-10.1); CARBON DIOXIDE LEVEL 23 MMOL/L (20-31); CHLORIDE LEVEL 109 MMOL/L (98-107); CHOLESTEROL LEVEL 134 MG/DL (<200); CHOLESTEROL RISK RATIO 2.76 (<5); CREATININE FOR GFR 0.72 MG/DL (0.55-1.30); GLOMERULAR FILTRATION RATE > 90.0 (>60); LDL CHOLESTEROL 51.9 MG/DL (<100); NON-HDL-C 85.5 MG/DL; POTASSIUM SERUM 3.7 MMOL/L (3.5-5.1); SODIUM LEVEL 142 MMOL/L (136-145); TRIGLYCERIDES LEVEL 168 MG/DL (<150)
[2024-12-04 12:46] LABS: BASO # 0.0 10^3/uL (0.0-0.2); BASO % 0.5 % (0.0-1.0); EOS # 0.1 10^3/uL (0.0-0.5); EOS % 1.5 % (0.0-3.0); LYMPH # 2.2 10^3/uL (1.5-5.0); LYMPH % 34.2 % (24.0-44.0); MONO # 0.5 10^3/uL (0.0-0.8); MONO % 7.4 % (2.0-8.0); NEUTROPHILS # 3.6 10^3/uL (1.5-8.5); NEUTROPHILS % 55.9 % (36.0-66.0); PLATELET COUNT, AUTOMATED 424 10^3/uL (150-450)
[2024-12-04 13:26] LABS: ESTIMATED AVERAGE GLUCOSE 217.0 MG/DL (60-110)
== END ==
LOC: M WUC 08:24
PROVIDERS: ATTEND Physician Assistant
DX: Z51.81 Encounter for therapeutic drug level monitoring (principal); Z79.899 Other long term (current) drug therapy

== ENCOUNTER → 2025-03-03 | Outpatient (REF) | payer MEDICARE, MEDICAID ==
[~2025-03-03] MED LIST changes: +METF-728 PO; -METF-882 PO
[2025-03-03 19:04] LABS: IRON (FE) 40.0 UG/DL (50-170); PERCENT SATURATION 10.9 % (13.2-45.0)
== END ==
LOC: M LAB REF 17:07
DX: R71.8 Other abnormality of red blood cells (principal)